=== PATIENT | female | born 1990 | race Caucasian/White ===

== ENCOUNTER 2020-08-15 14:07 | Outpatient (REF) | payer BC, SELFPAY ==
[2020-08-15 14:53] LABS: *AMPHETAMINES SCREEN URINE Negative (Negative); *BARBITURATES SCREEN URINE Negative (Negative); *BENZODIAZEPINES SCREEN URINE Negative (Negative); Cannabinoids THC Negative (Negative); Cocaine Screen,Urine Negative (Negative); METHADONE URINE SCREEN Negative (Negative); OPIATES URINE SCREEN Negative (Negative); Tricyclic Antidepressants Negative (Negative)
[2020-08-22 20:32] LABS: Buprenorphine Negative; Norbuprenorphine Negative
== END 2020-08-15 14:27 ==
LOC: LBN 14:07
PROVIDERS: Visit Provider Advanced Practice Midwife
DX: Z34.90 Encounter for supervision of normal pregnancy, unspecified, unspecified trimester (principal)
CPT/HCPCS: 80307

== ENCOUNTER 2020-08-18 02:12 | Outpatient (CLI) | payer BC, SELFPAY ==
[2020-08-18 09:43] LABS: Glucose 1 Hour 185 mg/dL
[2020-08-18 11:53] LABS: Glucose 3 Hour 56 mg/dL
== END 2020-08-18 02:32 ==
PROVIDERS: PCP Family Medicine; Visit Provider Advanced Practice Midwife
DX: Z34.90 Encounter for supervision of normal pregnancy, unspecified, unspecified trimester (principal)
CPT/HCPCS: 36410; 82951

== ENCOUNTER 2020-09-19 16:23 | Observation (INO) | payer BC, SELFPAY ==
[2020-09-19 16:30] VITALS: BP 133/78; PULSE 89; RESP 16; TEMP 35; O2SAT 96
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
--- NOTE | 2020-09-19 16:48 | PDOC.MHCN ---
Date of service: 09/19/20 Time of Service: 16:48 Mental Health Crisis Note Presenting Issue How did you arrive at the ED and why did you come: Blanca arrived today after she had made other arraignments for her 2 and 1 year old babies at home. She is seeking a voluntary admission. Precipitating Factors Blanca has reported intrusive thoughts of SI to cut her arms or to drive off a rodolfo. She has not acted on these. She does endorse that she is still having them however. Disposition BEHAVIOR: Blanca is cooperative and engaged today as she was yesterday. EYE CONTACT: Eye contact is appropriate and consistent. MOOD: Blanca presents as slightly anxious and still endorses depression. AFFECT: Blanca's affect is appropriate to situation. APPETITE: Blanca reported still having a poor appetite but is eating as she should. SLEEP(trouble falling/staying asleep: Gregory reported that she did not sleep well last night. Plan Blanca will have all her medical work up completed and faxed to [facility], [facility] and [facility]. She is not interested in at this time. [facility] does not have any availability and refused a referral. I did offer her the CARE Bed however, she feels she would prefer an inpatient stay over the CARE Bed. She will hopefully be going to the birthing unit until placement. This clinician had a discussion with Care Management today about this. They got approval from administrators to do so. [facility] will evaluate daily until placement is secured. Signature Clinician's Name/Title: Ángela Pike MS, [facility] Emergency Services Clinician
[2020-09-19 16:54] LABS: Bilirubin Negative (Negative); Blood Negative (Negative); Clarity Clear (Clear); Glucose Negative (Negative); Ketones Negative (Negative); Leukocyte Esterase Negative (Negative); Nitrite Negative (Negative); Specific Gravity >= 1.030 (1.005-1.025); Urobilinogen 0.2 EU/dL (Up TO 0.2)
[2020-09-19 17:02] LABS: Bacteria Moderate HPF (Negative); C & S Indicated? Yes; Casts Negative LPF (Negative); Crystals Few Amorphous HPF (Negative); Epithelial Cells Few HPF (Negative); Mucus Heavy (Negative); RBC 0-2 HPF (0-2)
[2020-09-19 17:04] LABS: *AMPHETAMINES SCREEN URINE Negative (Negative); *BARBITURATES SCREEN URINE Negative (Negative); *BENZODIAZEPINES SCREEN URINE Negative (Negative); Cannabinoids THC Negative (Negative); Cocaine Screen,Urine Negative (Negative); METHADONE URINE SCREEN Negative (Negative); OPIATES URINE SCREEN Negative (Negative)
[2020-09-19 17:07] LABS: Tricyclic Antidepressants Negative (Negative)
[2020-09-19 17:33] LABS: Abs Immature Grans 0.11 10^3/uL (0.0-0.06); Absolute Basophil Count 0.04 10^3/uL (0.0-0.2); Absolute Eosinophil Count 0.09 10^3/uL (0.0-0.7); Absolute Lymphocyte Count 2.71 10^3/uL (1.2-3.4); Absolute Neutrophil Count 10.59 10^3/uL (1.2-6.7); Basophils % 0.3; Eosinophils % 0.6; HCT 32.9 % (36.0-46.0); HGB 10.9 g/dL (11.2-15.7); Immature Grans % 0.7; Lymphocytes % 18.3; MCHC 33.1 % (32.0-36.0); MCV 90.6 fL (80-95); MPV 10.2 fL (8.0-11.0); Monocytes % 8.5; Neutrophils % 71.6; Nucleated RBC 0 %; Platelet Count 310 10^3/uL (130-400); RBC 3.63 10^6/uL (3.93-5.22); RDW 14.5 % (11.7-14.6); RDW-SD 47.3 fL; WBC 14.79 10^3/uL (4.4-10.8)
[2020-09-19 17:35] LABS: Absolute Monocyte Count 1.26 10^3/uL (0.1-0.8)
[2020-09-19 18:01] LABS: ALT 30 U/L (14-59); AST 14 U/L (15-37); Albumin 2.8 g/dL (3.4-5.0); Alkaline Phosphatase 81 U/L (46-116); Anion Gap 8.3 mmol/L (3-11); BUN 8 mg/dL (7-18); Bilirubin, Total 0.2 mg/dL (0.2-1.0); CO2 23.7 mmol/L (21.0-32.0); CREATININE 0.55 mg/dL (0.55-1.02); Chloride 103 mmol/L (98-107); ETHANOL BLOOD < 3.0 mg/dL (<3); Glucose 77 mg/dL (74-106); Potassium 3.4 mmol/L (3.5-5.1); Sodium 135 mmol/L (136-145); Total Protein 7.2 g/dL (6.4-8.2)
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
[2020-09-19 19:06] VITALS: BP 122/70; PULSE 80; RESP 16; TEMP 37.1; O2SAT 97
[2020-09-19] MEDS: Zolpidem 5 MG TAB PO (19:13)
--- NOTE | 2020-09-19 19:42 | PDOC.CMSAFED ---
- If Service Date Differs Date of service: 09/19/20 Time of Service: 17:20 Care Management Safety Plan Chief Complaint: Blanca is a 30 year old female who is 24 weeks . She presents to the ED for suicidal ideation with a plan of either cutting her arms or driving off of a rodolfo. She, however, has not acted on those thoughts and denies intent to harm herself. Blanca, who has a history of depression, was reportedly started on Sertraline last week and the medication appears to have exacerbated her depressive symptoms. Blanca wishes to be voluntarily hospitalized. Patient was evaluated by Ángela Pike, [facility] crisis screener, and was found to meet criteria for a voluntary psych hospitalization. Referrals have been made to [facility], [facility], and [facility]. VOLUNTARY FOR INPATIENT PSYCHIATRIC STABILIZATION. Patient is appropriate in all interactions since arriving at [facility]; Pt has demonstrated appropriate coping and communication skills, has articulated her needs and concerns and is fully engaged during staff interactions. Safety plan has been established with patient, and care team, to adhere to patient goals, identify restrictions based on behavioral status, address nutrition, and determine allowed personal belongings, tools for hygiene and personal care. Determine level of activity including ambulation, level of supervision, visitors, and determine privileges based on behaviors and level of engagement by pt. SAFETY PLAN: 1. Will remain on suicide precautions. 2. Will remain in room under direct supervision of one-on-one staff at all times provided by [employer]; TIFFANY, ENVIRONMENTAL DIRECTOR scrap yard worker. 3. May have paper cups, plates, finger foods as well as a metal spoon with which to eat meals. [facility] staff will be responsible for removing spoon once patient is done eating. 4. Follow [facility] Management of the Admitted Behavioral Health Patient policy. 5. Patient is allowed to shower with supervision and at nursing discretion. 6. No personal belongings with the exception of her own clothes. 7. Visitors-No visitors at this time. 8. Activities: Television if available, soft tip markers, paper, and other activities at nursing discretion. 9. Allowed to use the bathroom in the room without supervision. 10. Phone: No phone privileges at this time. 11. Due to VOLUNTARY status, if patient wishes to leave [facility], the [facility] nail mill worker must be contacted to re-evaluate patient prior to patient exiting the building. Patient is currently voluntarily at [facility] and seeking inpatient admission when a bed becomes available. [facility] Frontline Program Director Scouting will continue seeking placement. Please contact the Parts Runner Health Care Law Specialist ([phone]) and [facility] Program Director Scouting ([phone]) for any needed changes in the Safety Plan. Safety plan has been provided to interdepartmental care team.
--- NOTE | 2020-09-20 08:33 | PGE_ITS ---
Date of Service Date of service: 09/20/20 Time of Service: 08:34 Assessment and Plan Assessment and plan (1) Major depression: Status: Chronic Qualifiers: Major depression recurrence: recurrent Active/Remission status: currently active Major depression episode severity: severe Psychotic features: without psychotic features Qualified Code(s): F33.2 - Major depressive disorder, recurrent severe without psychotic features (2) Suicidal ideation: Status: Acute (3) : Status: Acute Qualifiers: Weeks of gestation: 26 weeks Qualified Code(s): Z3A.26 - 26 weeks gestation of Subjective Subjective Interval history since last seen: Pt slept during night per RN report. Currently sleeping. Will visit with pt later. Objective Last Vital Signs Temp 98.8 F 09/19/20 19:06 Pulse 80 09/19/20 19:06 Resp 16 09/19/20 19:06 BP 122/70 09/19/20 19:06 Pulse Ox 97 09/19/20 19:06 Laboratory Results - last 24 hr 09/19/20 09/19/20 09/19/20 16:45 16:45 17:24 WBC RBC Hgb Hct MCV MCH MCHC RDW Plt Count MPV Immature Gran % Neutrophils % Lymphocytes % Monocytes % Eosinophils % Basophils % Nucleated RBC % Absolute Neutrophils Absolute Lymphocytes Absolute Monocytes Absolute Eosinophils Absolute Basophils Sodium 135 L Potassium 3.4 L Chloride 103 Carbon Dioxide 23.7 Anion Gap 8.3 BUN 8 Creatinine 0.55 Estimated GFR/1.73 m2 >= 60.00 Glucose 77 Calcium 9.0 Total Bilirubin 0.2 AST 14 L ALT 30 Alkaline Phosphatase 81 Total Protein 7.2 Albumin 2.8 L Urine Color Dark yellow Urine Clarity Clear Urine pH 6.0 Ur Specific [place] >= 1.030 H Urine Protein 30 H Urine Ketones Negative Urine Blood Negative Urine Nitrite Negative Urine Bilirubin Negative Urine Urobilinogen 0.2 Ur Leukocyte Esterase Negative Urine RBC 0-2 Urine WBC 5-10 Ur Epithelial Cells Few Urine Crystals Few amorphous Urine Bacteria Moderate Urine Casts Negative Urine Mucus Heavy Ur Culture Indicated? Yes Urine Glucose Negative Urine Opiates Screen Negative Urine Methadone Screen Negative Ur Barbiturates Screen Negative Ur Tricyclics Screen Negative Ur Amphetamines Screen Negative U Benzodiazepines Scrn Negative Urine Cocaine Screen Negative Ur THC Screen Negative Ethyl Alcohol < 3.0 09/19/20 17:24 WBC 14.79 H RBC 3.63 L Hgb 10.9 L Hct 32.9 L MCV 90.6 MCH 30.0 MCHC 33.1 RDW 14.5 Plt Count 310 MPV 10.2 Immature Gran % 0.7 Neutrophils % 71.6 Lymphocytes % 18.3 Monocytes % 8.5 Eosinophils % 0.6 Basophils % 0.3 Nucleated RBC % 0 Absolute Neutrophils 10.59 H Absolute Lymphocytes 2.71 Absolute Monocytes 1.26 H Absolute Eosinophils 0.09 Absolute Basophils 0.04 Sodium Potassium Chloride Carbon Dioxide Anion Gap BUN Creatinine Estimated GFR/1.73 m2 Glucose Calcium Total Bilirubin AST ALT Alkaline Phosphatase Total Protein Albumin Urine Color Urine Clarity Urine pH Ur Specific [place] Urine Protein Urine Ketones Urine Blood Urine Nitrite Urine Bilirubin Urine Urobilinogen Ur Leukocyte Esterase Urine RBC Urine WBC Ur Epithelial Cells Urine Crystals Urine Bacteria Urine Casts Urine Mucus Ur Culture Indicated? Urine Glucose Urine Opiates Screen Urine Methadone Screen Ur Barbiturates Screen Ur Tricyclics Screen Ur Amphetamines Screen U Benzodiazepines Scrn Urine Cocaine Screen Ur THC Screen Ethyl Alcohol
--- NOTE | 2020-09-20 09:05 | W.INMHPGNOTE ---
Date of service: 09/20/20 Time of Service: 09:05 Mental Health Crisis Note Presenting Issue How did you arrive at the ED and why did you come: Blanca arrived yesterday as agreed on the day before when she was evaluated while at an appointment with [facility]. Precipitating Factors Blanca still endorses SI. She denied HI. Disposition BEHAVIOR: Blanca is tired but engaged. She is really wanting to go as soon as she can. EYE CONTACT: Blanca makes good eye contact. MOOD: Blanca presents depressed and endorses this as well. She does not appear to have much energy today but this could be because she has not slept well and/or has just woke up. AFFECT: Blanca's affect is flat and tired. APPETITE: Blanca reports that she still does not have an appetite but will continue to eat. SLEEP(trouble falling/staying asleep: Blanca reported that despite getting an Ambien she still did not get any sleep. Plan Will continue to be assessed by [facility] until placement is found. Will outreach to [facility], [facility] and [facility] as those were the ones accepting referrals. Signature Clinician's Name/Title: Ángela Dsouza MS, [facility] Emergency Services Clinician
--- NOTE | 2020-09-20 10:57 | PGE_ITS ---
Date of Service Date of service: 09/20/20 Time of Service: 10:58 Assessment and Plan Assessment and plan (1) Major depression: Status: Chronic Assessment and plan: Awaiting placement. Writing in journal. Asking to wear her own clothes. OK with continuing inpt care. Declined repeat Ambien last night after she awoke at 0200. May repeat Ambien dose this evening. Qualifiers: Major depression recurrence: recurrent Active/Remission status: currently active Major depression episode severity: severe Psychotic features: without psychotic features Qualified Code(s): F33.2 - Major depressive disorder, recurrent severe without psychotic features (2) Suicidal ideation: Status: Acute (3) : Status: Acute Qualifiers: Weeks of gestation: 26 weeks Qualified Code(s): Z3A.26 - 26 weeks gestation of Subjective Subjective Interval history since last seen: After receiving Ambien 5mg tablet last night she slept for a few hours but awoke at 0200 and was awake until 0500. Had a visit from [place], from [facility]. Still awaiting placement in inpt psych unit. Exam Const General: no acute distress Nutritional Appearance: overweight Orientation: alert, awake and oriented x3 Resp Effort & Inspection: normal respiratory effort Psych Appearance: grossly normal Mental Status: mental status grossly normal Speech and Movement: speech clear Mood: congruent mood (misses her children, feels that it's better she is in hosp. ), not labile and other Affect: normal affect (makes eye contact. would like to wear own clothes.) Attitude: cooperative Thought Process: normal Thought Content: normal Insight: fair Judgment: judgment good Objective Last Vital Signs Temp 98.8 F 09/19/20 19:06 Pulse 80 09/19/20 19:06 Resp 16 09/19/20 19:06 BP 122/70 09/19/20 19:06 Pulse Ox 97 09/19/20 19:06 Laboratory Results - last 24 hr 09/19/20 09/19/20 09/19/20 16:45 16:45 17:24 WBC RBC Hgb Hct MCV MCH MCHC RDW Plt Count MPV Immature Gran % Neutrophils % Lymphocytes % Monocytes % Eosinophils % Basophils % Nucleated RBC % Absolute Neutrophils Absolute Lymphocytes Absolute Monocytes Absolute Eosinophils Absolute Basophils Sodium 135 L Potassium 3.4 L Chloride 103 Carbon Dioxide 23.7 Anion Gap 8.3 BUN 8 Creatinine 0.55 Estimated GFR/1.73 m2 >= 60.00 Glucose 77 Calcium 9.0 Total Bilirubin 0.2 AST 14 L ALT 30 Alkaline Phosphatase 81 Total Protein 7.2 Albumin 2.8 L Urine Color Dark yellow Urine Clarity Clear Urine pH 6.0 Ur Specific [place] >= 1.030 H Urine Protein 30 H Urine Ketones Negative Urine Blood Negative Urine Nitrite Negative Urine Bilirubin Negative Urine Urobilinogen 0.2 Ur Leukocyte Esterase Negative Urine RBC 0-2 Urine WBC 5-10 Ur Epithelial Cells Few Urine Crystals Few amorphous Urine Bacteria Moderate Urine Casts Negative Urine Mucus Heavy Ur Culture Indicated? Yes Urine Glucose Negative Urine Opiates Screen Negative Urine Methadone Screen Negative Ur Barbiturates Screen Negative Ur Tricyclics Screen Negative Ur Amphetamines Screen Negative U Benzodiazepines Scrn Negative Urine Cocaine Screen Negative Ur THC Screen Negative Ethyl Alcohol < 3.0 09/19/20 17:24 WBC 14.79 H RBC 3.63 L Hgb 10.9 L Hct 32.9 L MCV 90.6 MCH 30.0 MCHC 33.1 RDW 14.5 Plt Count 310 MPV 10.2 Immature Gran % 0.7 Neutrophils % 71.6 Lymphocytes % 18.3 Monocytes % 8.5 Eosinophils % 0.6 Basophils % 0.3 Nucleated RBC % 0 Absolute Neutrophils 10.59 H Absolute Lymphocytes 2.71 Absolute Monocytes 1.26 H Absolute Eosinophils 0.09 Absolute Basophils 0.04 Sodium Potassium Chloride Carbon Dioxide Anion Gap BUN Creatinine Estimated GFR/1.73 m2 Glucose Calcium Total Bilirubin AST ALT Alkaline Phosphatase Total Protein Albumin Urine Color Urine Clarity Urine pH Ur Specific [place] Urine Protein Urine Ketones Urine Blood Urine Nitrite Urine Bilirubin Urine Urobilinogen Ur Leukocyte Esterase Urine RBC Urine WBC Ur Epithelial Cells Urine Crystals Urine Bacteria Urine Casts Urine Mucus Ur Culture Indicated? Urine Glucose Urine Opiates Screen Urine Methadone Screen Ur Barbiturates Screen Ur Tricyclics Screen Ur Amphetamines Screen U Benzodiazepines Scrn Urine Cocaine Screen Ur THC Screen Ethyl Alcohol
[2020-09-20] MEDS: Prenatal Multivitamin w/CA,FE TAB 1 TAB PO (11:00)
[2020-09-20 15:02] VITALS: BP 112/71; PULSE 92; RESP 20; TEMP 36.8; O2SAT 98
--- NOTE | 2020-09-20 18:54 | CMPROGNOTE_ITS ---
- If Service Date Differs Date of service: 09/20/20 Time of Service: 18:54 Care Management Progress Note S/O: Blanca remains at [facility], awaiting a voluntary psychiatric bed placement. She is in good spirits when CM comes to meet with her. She shares she misses her children and is looking forward to a transfer to a hospital where she can begin treatment for her depression and SI. Blanca has been cooperative and appropriate in her interactions with staff and is occupying her time by jhonny ramirez. provides her an adult coloring book and soft tip markers and ensures she has access to the television in the room to provide her with a variety of activities while she awaits placement. CM will continue to follow. A: Blanca is a 30 year old female admitted to [facility] on 09/19/20 for suicidal ideation. P: Blanca will remain at [facility] on voluntary status while [facility] continues to seek placement for her. Referrals were made to [facility], [facility] and [facility]. There are no available beds today. CM will continue to support patient while she awaits placement.
[2020-09-21] MEDS: Prenatal Multivitamin w/CA,FE TAB 1 TAB PO (09:15)
--- NOTE | 2020-09-21 10:16 | W.INMHPGNOTE ---
Date of service: 09/21/20 Time of Service: 10:16 Mental Health Crisis Note Presenting Issue How did you arrive at the ED and why did you come: Blanca arrived to the ER Friday as agreed upon the day before at her appointment at [facility]. She was and still is seeking a voluntary admission. Precipitating Factors Blanca still endorses intrusive SI thoughts. There are no signs of delusions. She denied HI. Disposition BEHAVIOR: Blanca is soft spoken. She is sitting in her bed on the birthing unit. She said that she is tired and is eating her breakfast. EYE CONTACT: Eye contact is good and consistent. MOOD: Blanca is peasant however still appears depressed. AFFECT: Blanca's affect is sad but pleasant. APPETITE: Blanca is eating breakfast. She still endorses not having an appetite but eats because she knows she needs to. SLEEP(trouble falling/staying asleep: Blanca reports that she is not sleeping well. She reported the bed is not comfortable. Plan Blanca is still seeking a voluntary placement. She will continue to be assessed daily until she is placed. Called [facility] to see if they could take Blanca and retest her COVID and then accept. Unfortunately, they report they are unable to accept until the negative COVID test is back. Signature Clinician's Name/Title: Ángela Pike MS, [facility] Emergency Services Clinician
--- NOTE | 2020-09-21 11:37 | CMPROGNOTE_ITS ---
- If Service Date Differs Date of service: 09/21/20 Time of Service: 11:37 Care Management Progress Note S/O: Blanca remains in good spirits. She easily engages in conversation and shares how much she misses her two children (2 year old daughter and 1 year old son) who are currently with their father. She continues to experience depression and is looking forward to beginning treatment at an inpatient facility. Blanca was reevaluated by Ángela [facility] crisis screener, today and was found to remain appropriate for a voluntary psych placement. CM will continue to follow. A: Blanca is a 30 year old female who remains at [facility] awaiting a voluntary psych placement. P: Anticipate Blanca will be transferred to [facility] pending Covid-19 test results. Transport will be via [facility] when ready. CM will continue to follow.
--- NOTE | 2020-09-21 11:47 | PDOC.CMSAFE ---
- If Service Date Differs Date of service: 09/21/20 Time of Service: 11:47 Care Management Safety Plan VOLUNTARY FOR INPATIENT PSYCHIATRIC STABILIZATION. Patient is appropriate in all interactions since arriving at [facility]; Pt has demonstrated appropriate coping and communication skills, has articulated her needs and concerns and is fully engaged during staff interactions. Safety plan has been established with patient, and care team, to adhere to patient goals, identify restrictions based on behavioral status, address nutrition, and determine allowed personal belongings, tools for hygiene and personal care. Determine level of activity including ambulation, level of supervision, visitors, and determine privileges based on behaviors and level of engagement by pt. SAFETY PLAN: 1. Will remain on suicide precautions. 2. Will remain in room under direct supervision of one-on-one staff at all times provided by [employer]; TIFFANY, MIRZA recorder of deeds. 3. May have paper cups, plates, finger foods as well as a metal spoon with which to eat meals. [facility] staff will be responsible for removing spoon once patient is done eating. 4. Follow [facility] Management of the Admitted Behavioral Health Patient policy. 5. Patient is allowed to shower without supervision at nursing discretion. 6. No personal belongings with the exception of her own clothes. 7. Visitors-No visitors at this time. 8. Activities: Television if available, soft tip markers, paper, and other activities at nursing discretion. 9. Allowed to use the bathroom in the room without supervision. 10. Phone: Allowed outgoing phone calls to her children. 11. Due to VOLUNTARY status, if patient wishes to leave [facility], the [facility] sheet metal worker helper must be contacted to re-evaluate patient prior to patient exiting the building. Patient is currently voluntarily at [facility] and seeking inpatient admission when a bed becomes available. [facility] Frontline Disc Pad Plate Filler will continue seeking placement. Please contact the Location Manager Heel Room Supervisor ([phone]) and [facility] Disc Pad Plate Filler ([phone]) for any needed changes in the Safety Plan. Safety plan has been provided to interdepartmental care team.
[2020-09-21 16:00] VITALS: BP 100/67; PULSE 92; RESP 20; TEMP 35.8
--- NOTE | 2020-09-21 21:32 | PGE_ITS ---
Date of Service Date of service: 09/21/20 Time of Service: 21:32 Assessment and Plan Assessment and plan (1) Major depression: Status: Chronic Assessment and plan: Awaiting placement. Writing in journal. Asking to wear her own clothes. OK with continuing inpt care. Declined repeat Ambien last night after she awoke at 0200. May repeat Ambien dose this evening. Qualifiers: Major depression recurrence: recurrent Active/Remission status: currently active Major depression episode severity: severe Psychotic features: without psychotic features Qualified Code(s): F33.2 - Major depressive disorder, recurrent severe without psychotic features (2) Suicidal ideation: Status: Acute Assessment and plan: Decision to initiate any type of medication therapy at this time. Patient had Covid testing at the time of admission to [facility]. However there are currently issues with obtaining the final result from [facility]. Care management has looked into possibly obtaining another test and having it sent somewhere else so the results could become available in a timely manner. We will continue to follow. (3) : Status: Acute Assessment and plan: Stable Qualifiers: Weeks of gestation: 26 weeks Qualified Code(s): Z3A.26 - 26 weeks gestation of Subjective Subjective Interval history since last seen: Patient meets to missing her children. While she has little activity she denies being bored. She has been writing in her journal. She is aware of the issues with obtaining Covid test results at this time. Exam Const General: no acute distress Nutritional Appearance: overweight Orientation: alert, awake and oriented x3 General: deferred Psych Appearance: grossly normal Mental Status: mental status grossly normal Speech and Movement: speech clear Mood: congruent mood (misses her children, feels that it's better she is in hosp. ), not labile and other Affect: normal affect (makes eye contact. would like to wear own clothes.) Attitude: cooperative Thought Process: normal Thought Content: normal Insight: fair Judgment: judgment good Objective Last Vital Signs Temp 96.4 F L 09/21/20 16:00 Pulse 92 H 09/21/20 16:00 Resp 20 09/21/20 16:00 BP 100/67 09/21/20 16:00 Pulse Ox 98 09/20/20 15:02
[2020-09-21] MEDS: Zolpidem 5 MG TAB PO (22:19)
[2020-09-22] MEDS: Prenatal Multivitamin w/CA,FE TAB 1 TAB PO (09:32)
--- NOTE | 2020-09-22 11:57 | MHPN_ITS ---
Date of service: 09/22/20 Time of Service: 11:57 Mental Health Crisis Note Presenting Issue How did you arrive at the ED and why did you come: Blanca came to ER Friday after she was screened on Friday. SHe came to seek a voluntary placement. Precipitating Factors Blanca reported that she is still having SI and denied HI. There are no signs of delusions. Disposition BEHAVIOR: Blanca is cooperative and friendly. She is smiling and very sweet. She is eager to get out of [facility] and get to the treatment she needs. EYE CONTACT: Eye contact is good and normal. MOOD: Blanca appears normal but slightly anxious today. She endorses depression. AFFECT: Affect is normal and and friendly. APPETITE: Appetite is still not good but shes does continue to eat. SLEEP(trouble falling/staying asleep: She reported 5 hours of sleep last night after getting an Ativan. This was good for her considering what she has been getting. She still does not feel it was enough. Plan Will continue to seek placement at [facility], [facility], [facility] and [facility] if available. Faxed COVID results to [facility], and [facility]. Signature Clinician's Name/Title: Ángela Pike MS, [facility] EMERGENCY SERVICES CLINICIAN
[2020-09-22 15:38] VITALS: BP 114/72; PULSE 84; RESP 16; TEMP 37; O2SAT 97
--- NOTE | 2020-09-22 16:13 | PDOC.CMDIS ---
- If Service Date Differs Date of service: 09/22/20 Time of Service: 16:13 LACE Index Scoring Tool - Questions: Length of Stay (in days): 3 Acuity (Admit via E.D.?): Yes E.D. Visits: 1 - Answers: Total Score: 7 Risk of Readmission: Low Risk Care Management Discharge Reason for Hospitalization: Major depression. Discharge Plan: Blanca is looking forward to beginning treatment for her depression. She is accepted for admission by [facility]. Transport will be provided by [facility] per [facility] policy. Blanca will follow up with her discharge plan of care as directed. Patient/Family Education Needs: Discharge instructions and expectations for inpatient psychiatric treatment. Services Needed at Discharge: Psychiatric Facility ([facility]), Transportation ([facility]
[2020-09-22 16:25] LABS: COVID-19 RT-PCR UVMMC Result Negative (Negative)
--- NOTE | 2020-09-22 17:01 | NUR.NOTE ---
Nursing Note: Dr. Triplett in to see patient. Consent for transfer to [facility] signed by patient. Pt instructed to contact [facility] for a follow up appointment after discharge from [facility]. Pt remains calm and cooperative. No concerns at th9is time.
== END 2020-09-22 17:20 | disposition short-term general hospital (02) ==
LOC: ER 18:21 → OBS 18:31
PROVIDERS: Admitting Provider Obstetrics & Gynecology Gynecology; Emergency Provider Physician Assistant; PCP Family Medicine; Visit Provider Obstetrics & Gynecology Gynecology
DX: F33.2 Major depressive disorder, recurrent severe without psychotic features (principal); R45.851 Suicidal ideations; Z11.59 Encounter for screening for other viral diseases; O99.342 Other mental disorders complicating pregnancy, second trimester
CPT/HCPCS: 80053; 80307; 99221; 99285; NC; U0003; 80320; 81003; 81015; 85025; 87086; G0378

== ENCOUNTER 2020-10-17 03:01 | Outpatient (CLI) | payer BC, SELFPAY ==
[2020-10-17 11:13] LABS: Abs Immature Grans 0.12 10^3/uL (0.0-0.06); Absolute Eosinophil Count 0.09 10^3/uL (0.0-0.7); Absolute Lymphocyte Count 1.96 10^3/uL (1.2-3.4); Absolute Neutrophil Count 9.55 10^3/uL (1.2-6.7); Basophils % 0.2; Eosinophils % 0.7; HCT 33.6 % (36.0-46.0); Lymphocytes % 15.5; MCH 30.6 pg (27.0-33.0); MCHC 32.7 % (32.0-36.0); MCV 93.6 fL (80-95); MPV 10.1 fL (8.0-11.0); Neutrophils % 75.6; Nucleated RBC 0 %; Platelet Count 301 10^3/uL (130-400); RBC 3.59 10^6/uL (3.93-5.22); RDW 14.8 % (11.7-14.6); RDW-SD 51.1 fL; WBC 12.63 10^3/uL (4.4-10.8)
[2020-10-17 11:17] LABS: Absolute Basophil Count 0.03 10^3/uL (0.0-0.2); Absolute Monocyte Count 0.88 10^3/uL (0.1-0.8)
[2020-10-17 11:23] LABS: Glucose,1 Hr (Glucola) 160 mg/dL (80-140)
== END 2020-10-17 03:21 ==
PROVIDERS: PCP Family Medicine; Visit Provider Obstetrics & Gynecology
DX: O99.343 Other mental disorders complicating pregnancy, third trimester (principal); F32.9 Major depressive disorder, single episode, unspecified; Z3A.28 28 weeks gestation of pregnancy; Z86.59 Personal history of other mental and behavioral disorders
CPT/HCPCS: 82950; 85025

== ENCOUNTER 2020-10-25 03:34 | Outpatient (CLI) | payer BC, SELFPAY ==
[2020-10-25 08:50] LABS: Glucose 1 Hour 219 mg/dL
[2020-10-25 10:46] LABS: Glucose 3 Hour 102 mg/dL
== END 2020-10-25 03:54 ==
PROVIDERS: PCP Family Medicine; Visit Provider Obstetrics & Gynecology
DX: O99.810 Abnormal glucose complicating pregnancy (principal)
CPT/HCPCS: 36415; 82951

== ENCOUNTER 2020-10-27 03:43 | Outpatient (CLI) | payer BC, SELFPAY ==
--- NOTE | 2020-10-27 06:30 | DI.US_ITS ---
EXAM: US OB ELIZABETH WEIGHT CLINICAL HISTORY: Size greater than dates,Z3A.26. TECHNIQUE: Transabdominal obstetrical ultrasound performed. COMPARISON: No exams were available for comparison FINDINGS:: Number of fetuses: One. position: Coleman breech Placental location: Posterior. No evidence of previa. BIOMETRIC DATA: BPD: 74mm = 29+ 4 weeks HC: 281mm = 30+ 5 weeks AC: 268mm = 30+ 6 weeks FL: 62 mm = 32+ 0 weeks EFW: 1705 Gms = 72% Composite Age: 30+ 6 weeks EDC: 30 December 2020 Heart Rate: 150 BPM Amniotic fluid index: 14.6 cm. Amount of fluid is within normal limits. IMPRESSION: size and weight are within the expected range. DATA REPOSITORY:
== END 2020-10-27 04:03 ==
PROVIDERS: PCP Family Medicine; Visit Provider Obstetrics & Gynecology
DX: Z3A.26 26 weeks gestation of pregnancy (principal); Z34.92 Encounter for supervision of normal pregnancy, unspecified, second trimester
CPT/HCPCS: 76816

== ENCOUNTER 2020-11-23 12:06 | Outpatient (CLI) | payer BC, SELFPAY ==
[2020-11-23 12:20] LABS: Abs Immature Grans 0.08 10^3/uL (0.0-0.06); Absolute Basophil Count 0.02 10^3/uL (0.0-0.2); Absolute Monocyte Count 0.94 10^3/uL (0.1-0.8); Basophils % 0.2; Eosinophils % 0.8; HCT 33.5 % (36.0-46.0); HGB 10.9 g/dL (11.2-15.7); Immature Grans % 0.7; Lymphocytes % 21.3; MCH 31.3 pg (27.0-33.0); MCHC 32.5 % (32.0-36.0); MCV 96.3 fL (80-95); Monocytes % 7.8; Neutrophils % 69.2; Nucleated RBC 0 %; Platelet Count 264 10^3/uL (130-400); RBC 3.48 10^6/uL (3.93-5.22); RDW 14.9 % (11.7-14.6); RDW-SD 51.4 fL; WBC 12.09 10^3/uL (4.4-10.8)
[2020-11-23 12:21] LABS: Absolute Lymphocyte Count 2.58 10^3/uL (1.2-3.4); Absolute Neutrophil Count 8.37 10^3/uL (1.2-6.7)
[2020-11-23 12:33] LABS: ALT 14 U/L (14-59); AST 9 U/L (15-37); Albumin 2.5 g/dL (3.4-5.0); Alkaline Phosphatase 88 U/L (46-116); Anion Gap 12.7 mmol/L (3-11); BUN 7 mg/dL (7-18); Bilirubin, Total 0.2 mg/dL (0.2-1.0); CO2 21.3 mmol/L (21.0-32.0); CREATININE 0.74 mg/dL (0.55-1.02); Calcium 8.6 mg/dL (8.5-10.1); Chloride 102 mmol/L (98-107); Glucose 135 mg/dL (74-106); Potassium 3.3 mmol/L (3.5-5.1); Sodium 136 mmol/L (136-145); Total Protein 6.7 g/dL (6.4-8.2)
[2020-11-23 12:39] LABS: Bilirubin, Direct < 0.05 mg/dL (0.00-0.20)
== END 2020-11-23 12:26 ==
PROVIDERS: PCP Family Medicine; Visit Provider Obstetrics & Gynecology
DX: R10.13 Epigastric pain (principal); Z3A.26 26 weeks gestation of pregnancy
CPT/HCPCS: 36415; 80053; 80076; 85025

== ENCOUNTER 2020-12-12 00:55 | Outpatient (CLI) | payer BC, SELFPAY ==
--- NOTE | 2020-12-12 08:30 | DI.US_ITS ---
EXAM: US OB ELIZABETH WEIGHT CLINICAL HISTORY: Position, weight, ELIZABETH,Z3A.26,O32.1XX0. TECHNIQUE: Transabdominal obstetrical ultrasound performed. COMPARISON: US US OB ELIZABETH WEIGHT from 10/27/2020 FINDINGS: Transabdominal obstetrical ultrasound performed. FINDINGS: Number of fetuses: One. position: Cephalic. Placental location: Posterior. No evidence of previa. BIOMETRIC DATA: EFW: 3012 grms 55% Composite Age: 36 weeks 5 days EDC: 01/04/2021 Heart Rate: 139BPM Amniotic fluid index: 20.8 cm. Visually, amount of fluid is within normal limits. IMPRESSION: 1. Single live intrauterine gestation as above. 2. Estimated weight is 3012gms. 3. Amniotic fluid index is 20.8 cm. Visually within normal limits. DATA REPOSITORY:
== END 2020-12-12 01:15 ==
PROVIDERS: PCP Family Medicine; Visit Provider Obstetrics & Gynecology
DX: Z34.93 Encounter for supervision of normal pregnancy, unspecified, third trimester (principal); Z3A.36 36 weeks gestation of pregnancy
CPT/HCPCS: 76816

== ENCOUNTER 2020-12-12 21:51 | Outpatient (REF) | payer BC, SELFPAY ==
[2020-12-12 17:00] LABS: *AMPHETAMINES SCREEN URINE Negative (Negative); *BARBITURATES SCREEN URINE Negative (Negative); *BENZODIAZEPINES SCREEN URINE Negative (Negative); Cannabinoids THC Negative (Negative); Cocaine Screen,Urine Negative (Negative); METHADONE URINE SCREEN Negative (Negative); OPIATES URINE SCREEN Negative (Negative)
[2020-12-12 17:21] LABS: Tricyclic Antidepressants Negative (Negative)
[2020-12-16 15:13] LABS: Buprenorphine Negative; Norbuprenorphine Negative
== END 2020-12-12 22:11 ==
LOC: LBN 21:51
PROVIDERS: PCP Family Medicine; Visit Provider Obstetrics & Gynecology Gynecology
DX: Z34.92 Encounter for supervision of normal pregnancy, unspecified, second trimester (principal); Z3A.26 26 weeks gestation of pregnancy
CPT/HCPCS: 80307; 87081

== ENCOUNTER 2020-12-25 10:34 | Outpatient (CLI) | payer BC, SELFPAY ==
[2020-12-26 12:37] LABS: COVID-19 RT-PCR UVMMC Result Negative (Negative)
== END 2020-12-25 10:54 ==
PROVIDERS: PCP Family Medicine; Visit Provider Obstetrics & Gynecology
DX: Z11.52 Encounter for screening for COVID-19 (principal); Z01.818 Encounter for other preprocedural examination
CPT/HCPCS: U0003

== ENCOUNTER 2020-12-25 10:46 | Outpatient (CLI) | payer BC, SELFPAY ==
[2020-12-25 11:20] LABS: Abs Immature Grans 0.06 10^3/uL (0.0-0.06); Absolute Basophil Count 0.02 10^3/uL (0.0-0.2); Absolute Eosinophil Count 0.07 10^3/uL (0.0-0.7); Absolute Lymphocyte Count 2.02 10^3/uL (1.2-3.4); Absolute Monocyte Count 0.86 10^3/uL (0.1-0.8); Absolute Neutrophil Count 7.47 10^3/uL (1.2-6.7); Basophils % 0.2; Eosinophils % 0.7; HCT 32.4 % (36.0-46.0); HGB 10.7 g/dL (11.2-15.7); Immature Grans % 0.6; Lymphocytes % 19.2; MCH 30.4 pg (27.0-33.0); MPV 10.7 fL (8.0-11.0); Monocytes % 8.2; Neutrophils % 71.1; Nucleated RBC 0 %; Platelet Count 242 10^3/uL (130-400); RBC 3.52 10^6/uL (3.93-5.22); RDW 14.2 % (11.7-14.6); RDW-SD 47.1 fL
== END 2020-12-25 11:06 ==
PROVIDERS: PCP Family Medicine; Visit Provider Obstetrics & Gynecology
DX: Z01.818 Encounter for other preprocedural examination (principal); Z11.52 Encounter for screening for COVID-19
CPT/HCPCS: 36415; 86850; 86900; 86901; 85025

== ENCOUNTER 2020-12-28 06:05 | Inpatient (IN) | payer BC, SELFPAY ==
--- NOTE | 2020-12-26 13:14 | NUR.NOTE ---
Pt. Informed of arrival time to Center for 0600 on 12/28/20. Pt. instructed to be NPO after midnight water until 0300am, may take Fluoxetine with a sip of water is ok. Pt. ok'd to have support person, pt. Mother Carol Trevizo with her on DOS. Pt reminided to bring in yellow slip of paper from [facility]. Pt. stated understanding. Center: James Pineda RN and Myra Blue RN informed of plans. Lab informed to bring pt redband to center.Nursing Note:
[2020-12-28] VITALS (13 sets, daily range): BP systolic 108–137; BP diastolic 60–75; PULSE 70–97; RESP 16–18; TEMP 36.5–37; O2SAT 96–100
--- NOTE | 2020-12-28 06:39 | W.PM.PROGNOT ---
Date of Service Date of service: 12/28/20 Time of Service: 06:39 Subjective Subjective Patient reports: no new complaints Interval history since last seen: Patient seen. Category 1 strip. No changes in H&P today. Will proceed with repeat section Objective Last Vital Signs Pulse 88 12/28/20 06:30 BP 137/73 12/28/20 06:30
[2020-12-28] MEDS: ceFAZolin 2 GM/50 ML BAG IVPB (07:11)
[2020-12-28] MEDS: Sodium Citrate 30 ML CUP PO (07:11)
[2020-12-28] MEDS: Normal Saline Flush 10 ML SYR IVP ×3 (07:14→20:50)
[2020-12-28] MEDS: Lactated Ringers 1,000 ML 125 ML IV ×2 (07:17→10:07)
[2020-12-28] MEDS: AZITHROMYCIN 500 MG in Normal Saline 250 ML 250 MG IVPB (07:53)
[2020-12-28] MEDS: Scopolamine 1 MG/3 DAYS PATCH TD (08:40)
--- NOTE | 2020-12-28 08:56 | PDOC.OPNB_ITS ---
Date of service: 12/28/20 Time of Service: 08:56 Operative Note Operative Note Delivery Method: Scheduled DATE OF PROCEDURE: 12/28/20 PRE-OP DIAGNOSES: Prior section x2 POST-OP DIAGNOSES: same PROCEDURE: Repeat low transverse section SURGEON: Fabi Porter Assisting Surgeon: Ninfa Goel Anesthesia: spinal Estimated blood loss (mL): 500 Pathology: none sent Complications: None Patient was transported to: floor Patient's condition: stable Indications: Prior x2, term at 39 weeks Findings: Normal tubes and ovaries. 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 She had care with women's wellness. She declined a trial of labor. Risk benefits and alternatives section including infection bleeding injury to surrounding organs and risk of anesthesia along with risk of thromboembolism risk of were all explained patient full informed consent was obtained. She was taken the operating suite with an IV running placed in the seated position and spinal anesthesia administered, tested and found to be adequate. She was then placed in the dorsal supine position with leftward tilt and prepped and draped in usual sterile fashion with a Black catheter for continuous bladder drainage. A Pfannenstiel skin incision was made through her previous Pfannenstiel skin incision scar. This was carried down to the underlying fascia which was nicked in the midline extended laterally. The rectus muscles were identified split in the midline and meticulously dissected. There is noted to be adhesions of the omentum to the anterior abdominal wall which were meticulously dissected away as were the bladder peritoneum dissected away from the anterior wall of the abdomen. At this point bladder blade was inserted and the vesicouterine peritoneum identified tented up and entered sharply and the bladder flap created. Bladder blade was reinserted and a low transverse uterine incision was made and extended bluntly laterally. The vertex was delivered atraumatically followed by the shoulders there is no evidence of nuchal cord. Three-vessel cord was noted clamped x2 and cut and the infant was handed off to the waiting pediatric team. At this point cord blood gases cord blood sample were both obtained and the placenta was manually expressed from the uterus. The uterus was then cleared of all clot and debris. Inspection there was noted to be a bicornuate uterus with a relatively wide septum and had been in the left horn of her uterus. At this point uterine incision was closed using 0 Monocryl suture in a running locked fashion with a second imbricating layer over the top. At this point the uterus was returned to the abdomen abdomen irrigated with copious amounts of normal saline and uterine incision inspected and found to be hemostatic. At this point fascial incision was closed using 0 Vicryl suture ru nning fashion. Subcutaneous tissue was irrigated with copious amounts of normal saline and infiltrated with Exparel. Subcutaneous tissue reapproximated with 3- 0 Vicryl suture. Sent cleaning space was hemostatic. Subcuticular space was closed. Suture of 4-0 undyed Monocryl was used to reapproximate the skin edge and Steri-Strips were placed. Sterile dressing was placed and the patient was then returned to center for recovery. Black catheter was placed draining clear yellow urine. Findings are delivered viable female infant with Apgars 6 8, bicornuate uterus. Normal tubes and ovaries. EBL: 500 mL Complications: None apparent Fluids: Crystalloid per anesthesia, 700 cc.
[2020-12-28] MEDS: FLUoxetine 20 MG CAP 40 MG PO (09:55)
[2020-12-28] MEDS: Oxytocin/Normal Saline 30 UNIT/500 ML BAG 95 UNITS IV (10:06)
[2020-12-28] MEDS: Metoclopramide 10 MG/2 ML VIAL IVP (11:12)
[2020-12-28] MEDS: Lactated Ringers 1,000 ML 120 ML IV (11:49)
[2020-12-28] MEDS: Ketorolac 30 MG/ML VIAL IVP ×2 (15:24→20:50)
[2020-12-29] VITALS: BP 116/64; PULSE 72; RESP 18; TEMP 36.8
[2020-12-29 05:00] VITALS: BP 117/63; PULSE 72; RESP 18; TEMP 36.6
[2020-12-29] MEDS: Ibuprofen 600 MG TAB PO ×2 (07:03→19:45)
--- NOTE | 2020-12-29 08:46 | W.PM.OBPNV1 ---
Date of service: 12/29/20 Time of Service: 08:46 Assessment and Plan Assessment and plan (1) Status post repeat low transverse section: Status: Acute Assessment and plan: Postoperative day #1 status post repeat low transverse section. Doing well. Ambulating, tolerating oral pain medication. Breast-feeding without difficulty. We discussed again contraception . In light of her bicornuate uterus, she is not a candidate for an intrauterine device, however Nexplanon post in the office may be a good option for her. She will continue her normal post operative care and expect discharge in the next 24 to 48 hours. (2) Major depression: Status: Chronic Qualifiers: Major depression recurrence: recurrent Active/Remission status: currently active Major depression episode severity: severe Psychotic features: without psychotic features Qualified Code(s): F33.2 - Major depressive disorder, recurrent severe without psychotic features Subjective Subjective Interval history: Patient seen and examined postoperative day #1 today. Doing well. Minimal pain. Minimal bleeding. Black catheter is out. Patient is ambulating and eating well. Nursing without difficulty. Patient comments: No complaints baby status: Doing well and Nursing well Exam Physical Exam Vital signs: Temp Pulse Resp BP Pulse Ox 98 F 72 18 117/63 96 12/29/20 05:00 12/29/20 05:00 12/29/20 05:00 12/29/20 05:00 12/28/20 15:40 Constitutional Constitutional: no acute distress HEENT Exam HEENT Exam: Normal Respiratory Exam Respiratory Exam: Normal Cardiovascular Exam Cardiovascular Exam: Normal Extremities Exam Extremity Exam: Normal; negative Calf Tenderness and Edema Skin Exam Skin Exam: Normal DetailedPsychiatric Exam Psych Exam: Normal Affect, Normal Thougth Process, Cooperative, Good Insight and Good Judgement
[2020-12-29 08:50] VITALS: BP 116/75; PULSE 76; RESP 16; TEMP 36.9; O2SAT 97
[2020-12-29] MEDS: FLUoxetine 20 MG CAP 40 MG PO (09:03)
[2020-12-29] MEDS: oxyCODONE 5 mg/Acetaminophen 325 mg TAB PO ×4 (09:04→23:30)
[2020-12-29 12:00] VITALS: BP 114/72; PULSE 83; RESP 16; TEMP 37; O2SAT 96
[2020-12-29 16:45] VITALS: BP 94/63; PULSE 94; RESP 16; TEMP 36.8; O2SAT 96
[2020-12-29 19:40] VITALS: BP 122/78; PULSE 103; RESP 18; TEMP 36.7; O2SAT 98
[2020-12-29] MEDS: Docusate Sodium 100 MG CAP PO (23:30)
[2020-12-30] MEDS: Ibuprofen 600 MG TAB PO ×4 (01:29→20:31)
[2020-12-30] MEDS: oxyCODONE 5 mg/Acetaminophen 325 mg TAB PO ×2 (03:59→08:17)
[2020-12-30] MEDS: Docusate Sodium 100 MG CAP PO (08:16)
[2020-12-30] MEDS: FLUoxetine 20 MG CAP 40 MG PO (08:19)
[2020-12-30 08:28] VITALS: BP 103/64; PULSE 87; RESP 17; TEMP 36.6; O2SAT 99
[2020-12-30 12:20] VITALS: BP 109/72; PULSE 85; RESP 16; TEMP 36.8; O2SAT 98
[2020-12-30] MEDS: oxyCODONE 5 MG TAB 10 MG PO ×3 (12:20→20:29)
[2020-12-30 16:35] VITALS: BP 112/70; PULSE 82; RESP 16; TEMP 36.8; O2SAT 98
[2020-12-30 20:00] VITALS: BP 122/80; PULSE 95; RESP 98; TEMP 37
[2020-12-31] VITALS: BP 119/67; PULSE 84; RESP 19; TEMP 36.8; O2SAT 97
[2020-12-31] MEDS: oxyCODONE 5 MG TAB 10 MG PO ×4 (00:29→12:45)
[2020-12-31] MEDS: Ibuprofen 600 MG TAB PO ×3 (02:17→15:03)
[2020-12-31 04:50] VITALS: BP 105/66; PULSE 85; RESP 18; O2SAT 98
[2020-12-31] MEDS: FLUoxetine 20 MG CAP 40 MG PO (08:32)
[2020-12-31] MEDS: Docusate Sodium 100 MG CAP PO (08:33)
[2020-12-31 08:45] VITALS: BP 119/82; PULSE 89; RESP 17; TEMP 36.8; O2SAT 98
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
--- NOTE | 2020-12-31 11:53 | W.PM.OBPNV1 ---
Date of service: 12/30/20 Time of Service: 10:54 Assessment and Plan Assessment and plan (1) Status post repeat low transverse section: Status: Acute Assessment and plan: Pt recovering well. Plan discharge to home in am. successfully. (2) History of depression: Status: Acute Assessment and plan: Sx stable. Pt will be seen week of 01/08/21 for postop check and mood assessment. (3) Postoperative pain: Status: Acute Assessment and plan: Will change from Percocet 5/325mg to Oxycodone 10mg q4 hrs. She will continue (4) Contraception: Status: Acute Assessment and plan: Pt has decided against permanent sterilization. Instead she will have PP Mirena/Kyleena IUD. Qualifiers: Contraceptive encounter type: other general counseling and advice Qualified Code(s): Z30.09 - Encounter for other general counseling and advice on contraception Subjective Subjective Interval history: POD2 Repeat delivery of female infant who will be named Iman. Pt's pain medication requirement is ~10mg of oxycodone every 4 to 5 hours. I will discontinue the Percocet 5/325mg and instead prescribe Oxycodone tablet 10mg every fours hours. She has been taking Ibuprofen 600mg every six hours. Her pain is reported as 4-5 when medication is effective and 8-9 when the 4 hour interval is ending. Patient comments: Incisional pain, Tolerating diet and Flatus present [place] baby status: Doing well, Nursing well, Rooming in and Strong Bonding Observed [place] feeding status: Exclusively breast feeding Exam Physical Exam Vital signs: Temp Pulse Resp BP Pulse Ox 98.2 F 89 17 119/82 98 12/31/20 08:45 12/31/20 08:45 12/31/20 08:45 12/31/20 08:45 12/31/20 08:45 Constitutional Constitutional: no acute distress HEENT Exam HEENT Exam: Not Done Neck Exam Neck Exam: Normal Respiratory Exam Respiratory Exam: Normal Cardiovascular Exam Cardiovascular Exam: Normal Abdominal Exam Abdomen: Tender (along L lateral margin of her incsion. describes burning) Comments: Incision is clean dry and intact with steri strips in place. Small amount of ecchymosis along inferior portion of the incision. No induration. Fundal Exam Fundus: Below Umbilicus (2 finger breaths) Rectal Exam Rectal Exam: Not Done Extremities Exam Extremity Exam: Normal; negative Edema Back/Spine/Pelvis Exam Back Exam: Not Done Skin Exam Skin Exam: Normal Neurological Exam Neurological Exam: Normal Psychiatric Exam Psychiatric Exam: Normal Additional findings Additional findings: Pt will continue fluoxetine
== END 2020-12-31 15:50 | disposition home or self-care (01) | DRG 787 ==
PROVIDERS: Admitting Provider Obstetrics & Gynecology; PCP Family Medicine; Visit Provider Obstetrics & Gynecology
PROC: 10D00Z1 Extraction of Products of Conception, Low, Open Approach (ICD-10-PCS; CPT 59514; principal; 2020-12-28 07:30)
DX: O34.211 Maternal care for low transverse scar from previous cesarean delivery (principal); F33.2 Major depressive disorder, recurrent severe without psychotic features; N85.8 Other specified noninflammatory disorders of uterus; Z3A.39 39 weeks gestation of pregnancy; Z37.0 Single live birth; O34.03 Maternal care for unspecified congenital malformation of uterus, third trimester; Q51.3 Bicornate uterus; O99.344 Other mental disorders complicating childbirth; O99.62 Diseases of the digestive system complicating childbirth; K21.9 Gastro-esophageal reflux disease without esophagitis
CPT/HCPCS: 59514; 82803; 99232; NC; J0456; J0690; J1100; J1885; J2405; J2765; J3010

== ENCOUNTER 2021-02-08 16:38 | Outpatient (REF) | payer BC, SELFPAY ==
[2021-02-12 15:48] LABS: Chlamydia Result Negative (Negative); GC Result Negative (Negative)
== END 2021-02-08 16:39 | disposition home or self-care (01) ==
LOC: LBN 16:38
PROVIDERS: PCP Family Medicine; Visit Provider Obstetrics & Gynecology
DX: Z11.3 Encounter for screening for infections with a predominantly sexual mode of transmission (principal)
CPT/HCPCS: 87491; 87591

== ENCOUNTER 2024-10-22 21:03 | Outpatient (REF) | payer MEDICAID, SELFPAY ==
--- NOTE | 2024-10-22 14:00 | PAPFT_PTH ---
PATIENT: Blanca Menendez LOC: [facility]#:[id number] AGE/SX: 34/F ROOM: RE10/22/[address]: Blanca Damico : 1990 BED: DIS: 10/22/2024 SPEC #: [id number] RECD: 10/25/24 13:20 STATUS: TEVIN RERoma #: [id number] HEATH: 10/22/24 14:[address]: Blanca Damico DEPT: [facility] Cytology RECD BY: Judy Justice Tissues: 1 - CX/ENDOCX FOR PAP SMEARS Procedures: PAP THIN PREP/UVM Screening HPV DNA PROBE Comments: (HPV 16 & 18/45)
--- OUTSIDE RECORDS SUMMARY | 2024-10-22 21:04 | XMS_ITS | Clinical Summary ---
[facility] [place] [address] Care Team Providers Care Road Grader Operator Name Role Phone Garry Toribio DO Primary Care Provider [phone] Allergies No known active allergies Medications Medication Sig Dispensed Refills Start Date End Date Status FLUoxetine (PROzac) 20 mg Capsule Take 1 capsule by mouth daily. 30 capsule 12 09/27/2020 Active lidocaine (LIDODERM) 5 % Adhesive Patch, Medicated Apply 1 patch onto the skin daily. (leave on for 12 hours and remove for 12 hours) 30 patch 09/27/2020 Active vitamin 27 & [id number] 60 mg iron-1 mg Tablet Take 1 tablet by mouth daily. 90 tablet 3 09/27/2020 Active zolpidem (Ambien) 5 mg Tablet Take 1 tablet by mouth nightly. 30 tablet 09/27/2020 Active Active Problems Problem Noted Date Diagnosed Date Major depressive disorder, recurrent episode Overview (09/23/2020): Patient is a 30-year-old woman 25 weeks with her third child who presents with worsening depression and passive suicidal ideation without any intent or plan. States that she chronically has dark thoughts, but that these thoughts have become more persistent over the last 4 to 5 months. Context for the worsening symptoms are managing the raising of her 2 children by herself, and ongoing divorce with the father of her children and financial stressors. Protective factors are her children and her soon-to-be third child. No past suicide attempts although has struggled with depression in the past. Major depressive disorder 09/22/2020 History of 2 sections 08/23/2020 Overview (08/23/2020): Breech 1st Abruption, PTL/PPROM 2nd Bicornuate uterus History of delivery History of gestational hypertension Resolved Problems Problem Noted Date Diagnosed Date Resolved Date Current severe episode of ma jeyson depressive disorder without psychotic features without prior episode 09/22/2020 09/22/2020 Tobacco abuse 08/23/2020 Family History Medical History Relation Comments Coronary Artery Disease Father Hypertension Father Seizure Disorder Father Depression Mother Relation Status Comments Father Mother Social History Tobacco Use Types Packs/Day Years Used Date Smoking Tobacco: Former Cigarettes Q uit: 09/22/2015 Smokeless Tobacco: Never Alcohol Use Standard Drinks/Week Comments Not Currently 0 (1 standard drink = 0.6 oz pur e alcohol) Sex and Gender Information Value Date Recorded Sex Assigned at Not on file Gender Identity Female 03/29/2020 10:56 AM EDT Sexual Orientation Not on file Last Filed Vital Signs Vital Sign Reading Time Taken Comments Blood Pressure 134/64 09/27/2020 10:54 AM EST Pulse 82 09/27/2020 10:54 AM EST Temperature 36.9 ??C (98.4 ??F) 09/27/2020 10:[address] Respiratory Rate 16 09/27/2020 10:54 AM EST Oxygen Saturation 98% 09/27/2020 10:54 AM EST Inhaled Oxygen Concentration - - Weight 101.6 kg (224 lb) 12/14/2020 4:47 PM EST Height 175.3 cm (5' 9) 12/14/2020 4:47 PM EST Body Mass Index 33.08 12/14/2020 4:47 PM EST Plan of Treatment Health Maintenance Due Date Last Done Comments HIV screen 2009 Hepatitis C Screening 2009 Hepatitis B vaccine (0-59 yrs) (1) 2010 Tetanus/Diphtheria/Pertussis Vaccines (1 - Tdap) 02/23 HPV test 2021 PAP Smear 2021 Covid-19 Vaccine ( - 2023-25 season) 2024 Influenza (Flu) vaccine (1 o f 1 - Influenza standard series) 07/25/2024 Advance Directives * Attempt Cardiopulmonary Resuscitation - Inpatient (Latest Code Status on File) Date Activated Date Inactivated Comments 09/22/2020 8:59 PM 09/27/2020 6:27 PM Question Answer Comments Code Status decision made by: Patient Care Teams Road Grader Operator Relationship Specialty Start Date End Date Garry Toribio DO [address] [place] [address] PCP - General Family Medicine 08/17/20
--- OUTSIDE RECORDS SUMMARY | 2024-10-22 21:04 | XMS_ITS | Encounter Summary ---
Author Organization [facility] [place] [address] Care Team Providers Care Cord Maker Name Role Phone Garry Toribio DO Primary Care Provider [phone] Encounter Details Date Type Department Care Team (Late st Contact Info) Description 10/27/2020 Ancillary Procedure Radiology Library at [facility] [place] [address] Garry Toribio DO [address] [place] [address] Social History Tobacco Use Types Packs/Day Years Used Date Smoking Tobacco: Former Cigarettes Q uit: 09/22/2015 Smokeless Tobacco: Never Alcohol Use Standard Drinks/Week Comments Not Currently 0 (1 standard drink = 0.6 oz pur e alcohol) Comments Yes Sex and Gender Information Value Date Recorded Sex Assigned at Not on file Gender Identity Female 03/29/2020 10:56 AM EDT Sexual Orientation Not on file documented as of this encounter Plan of Treatment Not on file documented as of this encounter Procedures Procedure Name Priority Date/Time Associated Diagnosis Comments FILM LIBRARY STORAGE ONLY ULTRASOUND STUDY Routine 10/27/2020 12:00 AM EST documented in this encounter Results * Film Library- Storage Only Ultrasound Study (10/27/2020 12:00 AM EST) Narrative AKUA - 12/13/2020 9:35 AM EST This exam is auto-finalizing. It's purpose is for storage only. Garry Toribio DO IMG FILM LIBRARY ORD ERABLES [place], [place] documented in this encounter Visit Diagnoses Not on filedocumented in this encounter Care Teams Cord Maker Relationship Specialty Start Date End Date Garry Toribio DO [address] [place] [address] PCP - General Family Medicine 08/17/20 documented as of this encounter
--- OUTSIDE RECORDS SUMMARY | 2024-10-22 21:04 | XMS_ITS | Encounter Summary ---
Author Organization [facility] [place] [address] Care Team Providers Care Quality Cloth Tester Name Role Phone Garry Toribio DO Primary Care Provider [phone] Encounter Details Date Type Department Care Team (Late st Contact Info) Description 12/12/2020 Ancillary Procedure Radiology Library at [facility] [place] [address] Garry Toribio DO [address] [place] [address] Social History Tobacco Use Types Packs/Day Years [...] FILM LIBRARY STORAGE ONLY ULTRASOUND STUDY Routine 12/12/2020 12:00 AM EST documented in this encounter Results * Film Library- Storage Only Ultrasound Study (12/12/2020 12:00 AM EST) Narrative AKUA - 12/13/2020 9:38 AM EST This exam is auto-finalizing. It's purpose is for storage only. Garry Toribio DO IMG FILM LIBRARY ORD ERABLES [facility] [place], [place] documented in this encounter Visit Diagnoses Not on filedocumented in this encounter Care Teams Quality Cloth Tester Relationship Specialty Start Date End Date Garry Toribio DO [address] [place] [address] PCP - General Family Medicine 08/17/20 documented as of this encounter
--- OUTSIDE RECORDS SUMMARY | 2024-10-22 21:05 | XMS_ITS | Encounter Summary ---
[facility] [place] [address] Care Team Providers Care Baggage Handling Supervisor Name Role Phone Garry Toribio DO Primary Care Provider [phone] Reason for Visit * Reason Onset Date Comments Prior Authorization 09/25/2020 CALL FROM [employer] ONGOING REVIEWER Encounter Details Date Type Department Care Team (Late st Contact Info) Description 09/25/2020 [place] [phone] Sri Diamond Prior Authorization (CALL FROM [employer] ONGOING REVIEWER) Social History Tobacco Use Types Packs/Day Years [...] on file documented as of this encounter Miscellaneous Notes * Telephone Encounter - Sri Diamond - 09/25/2020 9:01 AM EST REC'D CALL FROM MARINA THE REVIEWER WITH [employer] ASKING FOR ATTENDING PROVIDER'S NAME AND THE DRILLER PORTABLE - I INFORMED HIM MARGI Connell IS THE ONGOING REVIEWER AND GAVE HIM HER CONTACT INFO - HE ASKS THAT IF PT NEEDS ADDITIONAL DAYS TO HAVE MARGI CALL HIM AND LET HIM KNOW - ALSO IF THERE IS A DISPOSITION PLAN TO CALL AND LET HIM KNOW - NOTIFIED MARGI documented in this encounter Plan of Treatment Not on file documented as of this encounter Visit Diagnoses Not on filedocumented in this encounter Care Teams Baggage Handling Supervisor Relationship Specialty Start Date End Date Garry Toribio DO [address] [place] [address] PCP - General Family Medicine 08/17/20 documented as of this encounter
--- OUTSIDE RECORDS SUMMARY | 2024-10-22 21:05 | XMS_ITS | Encounter Summary ---
Author Organization [facility] [place] [address] Care Team Providers Care Ad Setter Name Role Phone Garry Toribio DO Primary Care Provider [phone] Encounter Details Date Type Department Care Team (Latest Contact Info) Description 08/23/2020 2:57 PM EDT - 08/23/2020 11:59 PM EDT Hospital [place] [phone] Edgar Sepulveda CNM [address] [place] [address] [address] [place] [address] Encounter for supervision of normal in second trimester, unspecified Discharge Disposition: Home Social History Tobacco Use Types Packs/Day Years Used Date Smoking Tobacco: Former Alcohol Use Standard Drinks/Week Comments Not Currently 0 (1 standard drink = 0.6 oz pur e alcohol) Comments Yes Sex and Gender Information Value Date Recorded Sex Assigned at Not on file Gender Identity Female 03/29/2020 10:56 AM EDT Sexual Orientation Not on file documented as of this encounter Medications at Time of Discharge Medication Sig Dispensed Refills Start Date End Date M-Soo Plus 27 mg iron- 1 mg Tablet TAKE ONE TABLET BY MOUTH EVERY DAY 08/16/2020 12/14/2020 aspirin EC 81 mg Tablet, Delayed Release (E.C.) Take 81 mg by mouth daily. 12/14/2020 documented as of this encounter Plan of Treatment Not on file documented as of this encounter Procedures Procedure Name Priority Date/Time Associated Diagnosis Comments US OB DETAILED MORPHOLOGY Routine 08/23/2020 3:59 PM EDT Encounter for supervision of normal in second trimester, unspecified documented in this encounter Results * US OB Detailed Morphology (08/23/2020 3:59 PM EDT) Anatomical Region Laterality Modality Pelvis, Abdomen Ultrasound 08/23/2020 3:50 PM EDT Impressions 08/23/2020 4:01 PM EDT 2nd Trimester - Detailed Morphology - Summary Single intrauterine with a gestational age of 20w 6d based on LMP ??(03/30/20) Composite age based on the current ultrasound alone is 20w 4d. Current growth parameters are consistent with prior dating indicating normal growth. Amniotic fluid volume is subjectively normal for gestational age. Cervical length measures 4.5 cm. No change with fundal pressure. No dynamic change observed. Detailed anatomic evaluation was performed and no structural abnormalities are noted. ?Vickie Hernandez, Staff Physician Electronically Signed Final Report ?? 08/23/2020 04:01 pm Narrative 08/23/2020 4:01 PM EDT OBSTETRICS REPORT ?(Signed Final 08/23/2020 04:01 pm) PATIENT INFO: ID #: ? [id number] ?: ??[birth year] (30 yrs)(F) Name: ? NICOLE BOWLES ?Visit Date: 08/23/2020 03:50 pm PERFORMED BY: Performed By: ? Pretty BARTON, ??Ashley Attending: ?David IGNACIO, Vickie Bernal Referred By: ?EDGAR SEPULVEDA Location: ? [place] SERVICE(S) PROVIDED: ??[facility] - Detailed Morphology - [id number] ?[id number] ??UOBTVCER - Cervical Length -Transvaginal - ? [id number] ??[id number] INDICATIONS: ??20 weeks gestation of ?Z3A.20 ??previous x2, bicornuate uterus EVALUATION: Num Of Fetuses: ? 1 Heart Rate(bpm): ??176 Cardiac Activity: ? Observed, normal rhythm Presentation: ? Breech Placenta: ? Posterior P. Cord Insertion: ?Within Normal Limits Amniotic Fluid ELIZABETH FV: ?Subjectively normal for gestational age --------- BIOMETRY: --------- BPD: ?47.6 ??mm ? G.Age: ?? 20w 3d OFD: ?60.4 ??mm HC: ?171.3 ??mm ? G.Age: ?? 19w 5d AC: ?151.9 ??mm ? G.Age: ?? 20w 3d FL: ? 36.9 ??mm ? G.Age: ?? 21w 5d HUM: ?33.3 ??mm ? G.Age: ?? 21w 2d CER: ?19.9 ??mm ? G.Age: ?? 19w 0d NFT: ? 4.3 ??mm LV: ?7.4 ??mm CM: ?3.2 ??mm CI: ?78.8 ??% ? 70 - 86 FL/HC: ? 21.5 ??% ? 15.9 - 20.3 HC/AC: ? 1.13 ?1.06 - 12.18 FL/BPD: ?77.5 ??% FL/AC: ? 24.3 ??% ? Est. FW: ? 383 ??gm ?0 lb 14 oz OB HISTORY: : ?6 ? Term: ?? 2 ? SAB: ?? 1 Living: ? 2 GESTATIONAL AGE: LMP: ? 20w 6d ?Date: ??03/30/20 ? MARLENI: ?? 01/04/21 U/S Today: ? 20w 4d ?MARLENI: ?? 01/06/21 Best: ?20w 6d ?? Det. By: ??LMP ??(03/30/20) ?MARLENI: ?? 01/04/21 TARGETED ANATOMY: Central Nervous System Calvarium/Cranial V.: ??Within Normal Limits Intracranial Aurea: ? Within Normal Limits Cavum: ? Within Normal Limits Parenchyma: ?Within Normal Limits Lateral Ventricles: ?Within Normal Limits Choroid Plexus: ?Within Normal Limits Cereb./Vermis: ? Within Normal Limits Cisterna Magna: ?Within Normal Limits Midline Falx: ?Within Normal Limits Spine Cervical: ?Visualized Thoracic: ?Visualized Lumbar: ?Visualized Sacral: ?Visualized Shape/Curvature: ? Visualized Head/Neck Face: ?Within Normal Limits Lips: ?Within Normal Limits Neck: ?Within Normal Limits Nuchal Fold: ? Within Normal Limits Nasal Bone: ?Present Profile: ? Visualized Orbits/Eyes: ? Visualized Mandible: ?Visualized Maxilla: ? Visualized Thorax Thoracic Contour: ?Within Normal Limits Lungs: ? Visualized 4 Chamber View: ?Within Normal Limits Cardiac Motion: ?Normal Rhythm Rt Outflow Tract: ?Visualized Lt Outflow Tract: ?Visualized Aortic Arch: ? Visualized Ductal Arch: ? Visualized SVC: ? Visualized Cardiac [place]: ?Visualized Diaphragm: ? Visualized 3 Vessel View: ? Visualized IVC: ? Visualized Abdomen Ventral Wall: ?Visualized Cord Insertion: ?Visualized Situs: ? Normal Stomach: ? Visualized Liver: ? Visualized Lt Kidney: ? Visualized Rt Kidney: ? Visualized Bladder: ? Visualized Bowel: ? Visualized Extremities Lt Humerus: ?Within Nomal Limits Rt Humerus: ?Within Normal Limits Lt Forearm: ?Within Normal Limits Rt Forearm: ?Within Normal Limits Lt Hand: ? Within Normal Limits Rt Hand: ? Within Normal Limits Lt Femur: ?Within Normal Limits Rt Femur: ?Within Normal Limits Lt Lower Leg: ?Within Normal Limits Rt Lower Leg: ?Within Normal Limits Lt Foot: ? Visualized Rt Foot: ? Visualized Other Umbilical Cord: ?3 vessel cord Genitalia: ? Female Procedure Note Vickie Hernandez MD - 08/23/2020 OBSTETRICS REPORT (Signed Final 08/23/2020 04:01 pm) PATIENT INFO: ID #: [id number] : [birth year] (30 yrs)(F) Name: NICOLE BOWLES Visit Date: 08/23/2020 03:50 pm PERFORMED BY: Performed By: Ashley Olsen RDMS Attending: Vickie Hernandez MD Referred By: EDGAR SEPULVEDA Location: [place] SERVICE(S) PROVIDED: [facility] - Detailed Morphology - [id number] UOBTVCER - Cervical Length -Transvaginal - [id number] INDICATIONS: 20 weeks gestation of Z3A.20 previous x2, bicornuate uterus EVALUATION: Num Of Fetuses: 1 Heart Rate(bpm): 176 Cardiac Activity: Observed, normal rhythm Presentation: Breech Placenta: Posterior P. Cord Insertion: Within Normal Limits Amniotic Fluid ELIZABETH FV: Subjectively normal for gestational age --------- BIOMETRY: --------- BPD: 47.6 mm G.Age: 20w 3d OFD: 60.4 mm HC: 171.3 mm G.Age: 19w 5d AC: 151.9 mm G.Age: 20w 3d FL: 36.9 mm G.Age: 21w 5d HUM: 33.3 mm G.Age: 21w 2d CER: 19.9 mm G.Age: 19w 0d NFT: 4.3 mm LV: 7.4 mm CM: 3.2 mm CI: 78.8 % 70 - 86 FL/HC: 21.5 % 15.9 - 20.3 HC/AC: 1.13 1.06 - 1.25 FL/BPD: 77.5 % FL/AC: 24.3 % 20 - 24 Est. FW: 383 gm 0 lb 14 oz OB HISTORY: : 6 Term: 2 SAB: 1 [place] GESTATIONAL AGE: LMP: 20w 6d Date: 03/30/20 MARLENI: 01/04/21 U/S Today: 20w 4d MARLENI: 01/06/21 Best: 20w 6d Det. By: LMP (03/30/20) MARLENI: 01/04/21 TARGETED ANATOMY: Central Nervous System Calvarium/Cranial V.: Within Normal Limits Intracranial Aurea: Within Normal Limits Cavum: Within Normal Limits Parenchyma: Within Normal Limits Lateral Ventricles: Within Normal Limits Choroid Plexus: Within Normal Limits Cereb./Vermis: Within Normal Limits Cisterna Magna: Within Normal Limits Midline Falx: Within Normal Limits Spine Cervical: Visualized Thoracic: Visualized Lumbar: Visualized Sacral: Visualized Shape/Curvature: Visualized Head/Neck Face: Within Normal Limits Lips: Within Normal Limits Neck: Within Normal Limits Nuchal Fold: Within Normal Limits Nasal Bone: Present Profile: Visualized Orbits/Eyes: Visualized Mandible: Visualized Maxilla: Visualized Thorax Thoracic Contour: Within Normal Limits Lungs: Visualized 4 Chamber View: Within Normal Limits Cardiac Motion: Normal Rhythm Rt Outflow Tract: Visualized Lt Outflow Tract: Visualized Aortic Arch: Visualized Ductal Arch: Visualized SVC: Visualized Cardiac [place]: Visualized Diaphragm: Visualized 3 Vessel View: Visualized IVC: Visualized Abdomen Ventral Wall: Visualized Cord Insertion: Visualized Situs: Normal Stomach: Visualized Liver: Visualized Lt Kidney: Visualized Rt Kidney: Visualized Bladder: Visualized Bowel: Visualized Extremities Lt Humerus: Within Nomal Limits Rt Humerus: Within Normal Limits Lt Forearm: Within Normal Limits Rt Forearm: Within Normal Limits Lt Hand: Within Normal Limits Rt Hand: Within Normal Limits Lt Femur: Within Normal Limits Rt Femur: Within Normal Limits Lt Lower Leg: Within Normal Limits Rt Lower Leg: Within Normal Limits Lt Foot: Visualized Rt Foot: Visualized Other Umbilical Cord: 3 vessel cord Genitalia: Female IMPRESSION 2nd Trimester - Detailed Morphology - Summary Single intrauterine with a gestational age of 20w 6d based on LMP (03/30/20) Composite age based on the current ultrasound alone is 20w 4d. Current growth parameters are consistent with prior dating indicating normal growth. Amniotic fluid volume is subjectively normal for gestational age. Cervical length measures 4.5 cm. No change with fundal pressure. No dynamic change observed. Detailed anatomic evaluation was performed and no structural abnormalities are noted. Vickie Hernandez, Staff Physician Electronically Signed Final Report 08/23/2020 04:01 pm Edgar Sepulveda CNM IMG US OB ORDERABLE S documented in this encounter Visit Diagnoses Diagnosis Encounter for supervision of normal in second trimester, unspecified documented in this encounter Care Teams Ad Setter Relationship Specialty Start Date End Date Garry Toribio DO [address] [place] [address] PCP - General Family Medicine 08/17/20 documented as of this encounter
--- OUTSIDE RECORDS SUMMARY | 2024-10-22 21:05 | XMS_ITS | Encounter Summary ---
Author Organization [facility] Address [facility] [place] [address] Care Team Providers Care Stock Speculator Name Role Phone Garry Toribio DO Primary Care Provider [phone] Reason for Visit * Auth/Cert Specialty Diagnoses / Procedures Referred By Stephanie vu Referred To Contact Diagnoses Major depressive disorder Depression Procedures EMERGENCY IPI PSYCH Referral ID Status Reason Start Date Expiration Date Visits Re quested Visits Authorized [id number] 1 1 Encounter Details Date Type Department Care Team (Latest Contact Info) Description 09/22/2020 6:48 PM EDT - 09/27/2020 3:00 PM EST Hospital Encounter [facility] [place] [id number] [place] [address] Chest pain on breathing Discharge Disposition: Home Social History Tobacco Use [...] on file documented as of this encounter Last Filed Vital Signs Vital Sign Reading Time Taken Comments Blood Pressure 134/64 09/27/2020 10:54 AM EST Pulse 82 09/27/2020 10:54 AM EST Temperature 36.9 ??C (98.4 ??F) 09/27/2020 10:[address] Respiratory Rate 16 09/27/2020 10:54 AM EST Oxygen Saturation 98% 09/27/2020 10:54 AM EST Inhaled Oxygen Concentration - - Weight 99 kg (218 lb 3.2 oz) 09/24/2020 9:27 AM EST Height 175.3 cm (5' 9) 09/22/2020 5:00 PM EDT Body Mass Index 32.22 09/22/2020 5:00 PM EDT documented in this encounter Discharge Summaries * Consuelo Escalante MD - 09/27/2020 1:01 PM EST Discharge Summary Patient Name: Nicole Bowles Patient Age: 30 y.o. Language: Uruguayan Race: White Ethnicity: Not nor Admit date: 09/22/2020 Discharge date and time: 09/27/2020 1500 Attending Physician: Dr. Zavala Discharge Physician: Dr. Escalante Discharge Diagnoses (Hospital Problems) and Secondary Diagnoses (Chronic Problems): Active Hospital Problems Diagnosis ??? Major depressive disorder, recurrent episode ??? Major depressive disorder Resolved Hospital Problems Diagnosis Date Resolved ??? Current severe episode of major depressive disorder without psychotic features without prior episode 09/22/2020 Active Non-Hospital Problems Diagnosis ??? History of 2 sections ??? Bicornuate uterus ??? History of delivery ??? History of gestational hypertension Follow-up Recommendations for Providers: Please monitor the patient's condition, and adjust medications accordingly Expanding plasma volume during has been observed to cause decreased blood levels of fluoxetine. However, the clinical relevance of this phenomenon remains unclear. Recommend low thresh-holdto increase fluoxetine to 40mg qd if pt's depression symptoms worsen. Follow-up Providers/Appointments: General Instructions Follow up appointments: PCP [facility] Garry Toribio DO [place], [place] Phone - [phone] Fax - [phone] Hospital Appointment (in-person)- September 29 10:15am [facility] [address] [place] [address] Phone: Fax: Germaine Phone Intake Appointment - September 28 at 11am You will be receiving an email at [email or web address] from to participate in our bridge program (on-line group therapy). This will require a - account. It will be on Tuesdays and Fridays from 10-11:30 online. Inpatient Provider Contact Information: For questions regarding this document (including laboratory or other studies) or issues relating tothis hospitalization, please contact your patient child care centre director, Jennifer Rosenbaum RN, through the [facility] Designated [facility]ker . Issues after hours and on weekends will be handled by the assistant to the vice president on-call who can be reached through the [facility] Designated Broker. Medication Instructions Continue to take all of the medications as instructed. Any medication changes will be addressed at your next outpatient appointment with the individual who prescribes your medications. Advance Care Plan The patient has an appointed surrogate decision maker: Name of surrogate decision maker: The patient has medical advance directives: The patient has psychiatric advance directives: The patient was offered information about designating a surrogate decision maker, medical advance directives and psychiatric advance directives. The patient declines further information at this time. The patient was provided a medical and/or psychiatric advance directive and declines to complete itat this time. All eleven elements of the Transition Record have been reviewed with the patient. Future Appointments and Orders Future Appointments and Orders Future Appointments Provider Department Dept Phone 09/29/2020 10:00 AM Fish Butler PsyD Psychiatry and Behavioral Health at [facility] Arrive at: Home [phone] Please view full video visit instructions here. If you have not previously downloaded the software, please do so here: For all desktops/laptops; for Android devices; for Apple/iOS devices FAQs: Join Video Visit button not connecting? - This may be due to pop-up blockers. - Click this link to see: How to Disable Pop-Up Block for myD-H Video Visits Zoom asking for a meeting password? 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 Of note, she started sertraline 25mg on 09/11, after which she started feeling more depressed, so she stopped on 09/19. ?? She says she has had a certain level of darkness even as a child and had intermittent depression since adolescence. Patient endorses history of cutting as a teen, but has never had self-injurious behavior as an adult. Lately, she has been engulfed by a series of stressors--she from her in June 2020, she is now taking care of 2 kids on her own, her [employer] business dwindled as COVID came, and she and her kids have been living on unemployment check, which is $185/week. ?? She is under enormous stress and feels like giving up on life. She has images of cutting herself with a knife or driving off a rodolfo, but she says she would never act on those thoughts and has never reached for a knife or gotten into a car with the intent of getting in an accident. No preparatory behavior. She cites her children as strong protective factors against suicide and thinks about what her kids' lives would be like if she weren't here. ?? In her early 20s, she says at times she felt very hyper. There were times when she had trouble falling asleep for 3-4 days and felt exhausted by the end of it. She denies increased level of impulsivity, grandiosity, or increased productivity during these episodes. ?? Mood: ok now, but overwhelmed by coming into a hospital. Sleep: Poor. 3-4 hours nightly, even when away from kids. Interest: Lost interest in crafting. Guilt: Very low Energy: Fatigued Concentration: Poor Appetite: Terrible. Psychomotor: Endorses retardation. Suicide: Endorses passive SI. Has had thoughts about cutting herself or driving off a rodolfo, but never found herself preparing for these things. Hospital Course: Nicole Bowles was voluntarily admitted to inpatient psychiatry for safety, stabilization, and medication optimization. Standard admission labs were ordered and pertinent results are located below. During this admission, the following medication changes were made: started fluoxetine 20mg qd, zolpidem 5mg qhs. She tolerated these medication changes well and denied any side effects throughout admission or at time of dicharge. She was pleasant, cooperative, and behaviorally appropriate for the duration of this admission. Her mood and mental status gradually improved throughout this admission. She was active in the therapeutic milieu and engaged in her treatment throughout this hospitalization. The hospital course was without complication. On the day of discharge, the patient discussed feeling ready to go home, but slightly anxious. She stated that she planned on talking to her mom more for support, and that they've been working together to come up with a child-care plan so that patient will have some time to herself. She also statesthat she found out that her brother's girlfriend has struggled with depression in the past, and is excited that they'll be able to support each other. Pt was happy to find out that there are so many crisis lines available should she require them. Pt has no physical complaints except for chronic back pain, which is well controlled today. She continues to feel positively about her . The patient denied thoughts of suicide, homicide, or violence. Mental status exam is below. Follow up was scheduled as described below, and this information was provided to the patient in her After Visit Summary. Patient was also provided with emergency contact information. Patient was referred to bridge clinic on discharge. Follow-up plan: [x] Obtained/told to obtain appointment from PCP, indicate name/phone number here: Garry Toribio DO at [x] Obtained/told to obtain appointment from [facility], indicate program here [facility] Bridge Program Services Needed: [x] skills group program [] psychopharmacology follow-up, indicate for which medication [] needs review by patient [facility] services (PFS) Referral Check list [x] Ensured that patient can access video tele-health connection [x] Ensured that patient understands that cameras must remain on during group appointments [x] Provided patient with Bridge Program information using [facility] [employer] Bridge discharge instructions [x] Added patient to shared list for Bridge Program [x] If new medication started, provided enough for for 5 days [x] given number for PFS [phone] [no] did referring to the BRIDGE program divert the patient from an inpatient hospitalization ? YESor NO Mental Status Exam on Day of Discharge: Ambulates independently. No tics or tremors noted. Age appropriate, casually dressed, good eye contact. Calm and cooperative. Attentive to the interview. Relates well. Speech reg r/r/prosody. Mood good and affect is full and mood congruent. Thoughts are l/l/gd and associations are intact. Denies SI/HI. Denies AH/VH or paranoia. Language without echolalia or clanging. Memory grossly intact. Alert and oriented x 4. I/J: fair Functional and Cognitive Status: good Important Studies: Last 3 wbc, hgb, hct plt Recent Labs 09/25/20 1140 WBC 11.7* HGB 10.8* HCT 33.3* PLATELET 267 Last 3 Lytes Recent Labs 09/25/20 1140 NA 135 K 3.9 CL 102 CO2 24 BUN 6* CREATININE 0.60* Last 3 Ca, Mg, Phos Recent Labs 09/25/20 1140 CALCIUM 9.0 EKG QTc: Recent Labs 09/25/20 1111 QTCCALC 435 QRSDURATION 80 Discharge Medications: (Reviewed at time of discharge, indication for use included): Your Medications New Medications Dose Details FLUoxetine 20 mg Cap Commonly known as: PROzac Take 1 capsule by mouth daily. 20 mg Quantity: 30 capsule Refills: 12 lidocaine 5 % Ptmd Commonly known as: LIDODERM Apply 1 patch onto the skin daily. (leave on for 12 hours and remove for 12 hours) Quantity: 30 patch Refills: 0 vitamin 27 & uosgbkd-cjsa-IU 60 mg iron-1 mg Tab Take 1 tablet by mouth daily. 1 tablet Quantity: 90 tablet Refills: 3 zolpidem 5 mg Tab Commonly known as: Ambien Take 1 tablet by mouth nightly. 5 mg Quantity: 30 tablet Refills: 0 Continued medications, unchanged Dose Details aspirin EC 81 mg Tbec Take 81 mg by mouth daily. 81 mg Refills: 0 M-Soo Plus 27 mg iron- 1 mg Tab TAKE ONE TABLET BY MOUTH EVERY DAY Generic drug: PNV,calcium 04-boyf-hhoer acid Refills: 0 Antipsychotic Quality Measure (select one of three reasons): No Updated Allergies/ADRs: No Known Allergies Immunizations Given this Hospitalization: There is no immunization history on file for this patient. Smoking Status at Discharge: Social History Tobacco Use Smoking Status Former Smoker ??? Quit date: 09/22/2015 ??? Years since quittin.0 Smokeless Tobacco Never Used Instructions Given to Patient at Discharge: Patient Instructions PATIENT DISCHARGE INSTRUCTIONS Principal diagnosis at discharge and reason for admission: Major Depressive Disorder, recurrent episode Vital Signs: BP: 126/61, Heart Rate: 80, Temp: 36.3 ??C (97.4 ??F), Resp: 18, BMI (Calculated): 32.93 Height: 175.3 cm (5' 9) (09/22/20 1700) Weight: 99 kg (218 lb 3.2 oz) (09/24/20 0927) Operations, Tests, and Procedures with Results: none Important Lab Data: Psychiatry Labs: Preg: No results found for: HCGQUAL, HCGQUANT Heme: Lab Results Component Value Date WBC 11.7 (H) 09/25/2020 HGB 10.8 (L) 09/25/2020 HCT 33.3 (L) 09/25/2020 PLATELET 267 09/25/2020 MCV 92.2 09/25/2020 NEUTROABS 8.44 (H) 09/25/2020 No results found for: HA1C, SEDRATE Chem: Lab Results Component Value Date NA 135 09/25/2020 K 3.9 09/25/2020 CL 102 09/25/2020 CO2 24 09/25/2020 BUN 6 (L) 09/25/2020 GLUCOSE 74 09/25/2020 Lab Results Component Value Date CALCIUM 9.0 09/25/2020 LFTs: No results found for: ALT, AST, GGT, ALKPHOS, BILITOT, AMMONIA Coags: No results found for: PTT, PT, INR Thyroid: No results found for: TSH, A4ISNES, TT4 Lipids and HgbA1C: No results found for: CHLPL, HDL, CHOLHDL, LDLCHOL, LDLDIRECT, TRIG No results found for: HA1C Vit Lvls: No results found for: SDTDRBRB24, SFOLATE UA: No results found for: GLUCOSEU, KETONESUA, PROTEINUADIP, BLOODUADIP, LEUKOESTERUA, NITRATEUA, WBCUA (May not represent most recent UA results. See eD-H labs for more details.) Tox: No results found for: ETHANOL, ACTMNPHEN, SALICYLATE, LEAD No results found for: UDAUSCREEN Rx Lvls: No results found for: LITHIUM, CARBAMAZEPIN, VALPROATE, LAMOTRIGINE, CLOZAPINE Pending Labs, Procedures, and studies at Discharge: none Discharge Disposition: home Primary Care Physician: Garry Toribio DO [phone] Special Physician Instructions: Please consider increasing fluoxetine to 40mg daily if patient experiences worsening of mood symptoms Special Instructions Provided to Nicole Bowles: You have been referred to the [facility]. The [facility] provides short-term psychiatric services to adults as they transition to arranged long-term outpatient care. Please be prepared to update the [facility] Clinic staff as to what your follow-up plan will be so that we can support that plan. If you are already engaged in established psychiatric care, you are being referred to benefit from increased psychiatric support. The primary form of treatment offered by the [facility] is group therapy. Groups are educational, instructive and informative. They incorporate a cognitive behavioral treatment approach and address topics such as stress management, coping and interpersonal skills and general symptom management. The [facility] also provides short term medication management if needed as indicated by the clinician referring you. You may attend multiple skill enhancing groups per week. Groups are scheduled for 90 minutes on Friday and Friday at 10-11:30 and are currently online due to COVID. Groups are accessed like other telehealth visits through your [employer] account or via a link sent to you in a text message or email. PLEASE NOTE: YOU MUST KEEP YOUR VIDEO CAMERA ON DURING THE GROUP VISITS. If needed, you can change your display name (e.g., first name only) with the instructions at the end of this sheet. Your insurance company will be contacted to determine eligibility and coverage for these groups. Ifyou do not have insurance, please contact the [facility] Patient Financial Services at . You will be contacted to discuss a start date and make sure that you can make a video connection Ifyou have waited more than one business day without hearing back from anyone, or if you have specific questions about the clinic, please call: . myD-H Video Visit - Change Zoom Display Name You can now connect with your provider virtually through your [employer] portal with a scheduled myD-H Video Visit. There may be times where you wish to change your display name. The below document will walk you through these steps. 1. Once you are in the Zoom meeting, click Participants in the bottom toolbar. The Participants sidebar will open. 2. Hover over your name on the Participant list and click the More button. 3. Select Rename. 4. Enter your preferred display name. 5. Click OK. Call your doctor, your local mental health center, or your local emergency room if you develop worsening symptoms of depression, anxiety, thoughts of harming yourself, thoughts of harming others, or any other decline in your overall condition. [facility] Emergency Services: [facility]: Phone: [facility] Emergency Services: [phone] [facility] Central Access Services: [phone] [facility] Main Line: [phone] Activity level: no restrictions from psychiatry Diet: no restrictions from psychiatry Driving: do not drive if sedated by medications Medications have been reviewed with the patient and the patient understands the use and side effects of these medications as evidenced by discussions on interdisciplinary rounds. A copy of the AVS has been reviewed with, and given to, the patient. Discharge References/Attachments None Discharge Condition/Prognosis: Satisfactory condition. Prognosis is dependent on patient's participation in ongoing treatment and adherence with prescribed medications. Signed: Consuelo Escalante MD 09/27/2020 Inpatient Provider Contact Information: Emergency Services (Crisis Line): [phone] [facility]: [phone] [facility] Main Line: [phone] Associated attestation - Zack Zavala MD - 09/27/2020 2:18 PM EST I have personally seen and examined the patient. The patient denies suicidal ideations or homicidalideations or paranoia. The patient is future oriented and has specific practical and behavioral goals upon leaving the hospital. Patient responded well to therapeutic milieu therapy and titration of antidepressant medication, reporting improved mood and hopefulness, while denying adverse effects. Patient understands potential risk of medication during and balances this risk with benefitof improved mood. Alcohol Use Patient does not meet criteria for unhealthy alcohol use. Drug Use Disorder Pt does not meet criteria for substance use disorder Tobacco Use Patient is a non-smoker. The patient is ready for discharge with aftercare per AVS. Greater than 30 minutes was spent coordinating discharge for this patient and included hmpp-hy-fcnghalguoknd and exam, explanation of after visit instructions and medications to the patient and necessary caregivers, documentation, and prescription management. Zack Zavala MD documented in this encounter Discharge Instructions * Discharge Instructions* Jennifer Rosenbaum RN - 09/26/2020 12:54 PM EST Follow up appointments: PCP [facility] Primary Care Garry Toribio DO [place], [place] Phone - [phone] Fax - [phone] Hospital Appointment (in-person)- September 29 10:15am [address] [address] Phone: Fax: Germaine Phone Intake Appointment - September 28 at 11am You will be receiving an email at [email or web address] from to participate in our bridge program (on-line group therapy). This will require a [employer] account. It will be on Tuesdays and Fridays from 10-11:30 online. Inpatient Provider Contact Information: For questions regarding this document (including laboratory or other studies) or issues relating tothis hospitalization, please contact your patient child care centre director, Jennifer Rosenbaum RN, through the [facility] Designated Broker . Issues after hours and on weekends will be handled by the assistant to the vice president on-call who can be reached through the [facility] Designated Broker. Medication Instructions Continue to take all of the medications as instructed. Any medication changes will be addressed at your next outpatient appointment with the individual who prescribes your medications. Advance Care Plan The patient has an appointed surrogate decision maker: Name of surrogate decision maker: The patient has medical advance directives: The patient has psychiatric advance directives: The patient was offered information about designating a surrogate decision maker, medical advance directives and psychiatric advance directives. The patient declines further information at this time. The patient was provided a medical and/or psychiatric advance directive and declines to complete itat this time. All eleven elements of the Transition Record have been reviewed with the patient. * Patient Instructions* Consuelo Escalante MD - 09/26/2020 2:13 PM EST PATIENT DISCHARGE INSTRUCTIONS Principal diagnosis at discharge and reason for admission: Major Depressive Disorder, recurrent episode Vital Signs: BP: 126/61, Heart Rate: 80, Temp: 36.3 ??C (97.4 ??F), Resp: 18, BMI (Calculated): 32.93 Height: 175.3 cm (5' 9) (09/22/20 1700) Weight: 99 kg (218 lb 3.2 oz) (09/24/20 0927) Operations, Tests, and Procedures with Results: none Important Lab Data: Psychiatry Labs: Preg: No results found for: HCGQUAL, HCGQUANT Heme: Lab Results Component Value Date WBC 11.7 (H) 09/25/2020 HGB 10.8 (L) 09/25/2020 HCT 33.3 (L) 09/25/2020 PLATELET 267 09/25/2020 MCV 92.2 09/25/2020 NEUTROABS 8.44 (H) 09/25/2020 No results found for: HA1C, SEDRATE Chem: Lab Results Component Value Date NA 135 09/25/2020 K 3.9 09/25/2020 CL 102 09/25/2020 CO2 24 09/25/2020 BUN 6 (L) 09/25/2020 GLUCOSE 74 09/25/2020 Lab Results Component Value Date CALCIUM 9.0 09/25/2020 LFTs: No results found for: ALT, AST, GGT, ALKPHOS, BILITOT, AMMONIA Coags: No results found for: PTT, PT, INR Thyroid: No results found for: TSH, [id number], TT4 Lipids and HgbA1C: No results found for: CHLPL, HDL, CHOLHDL, LDLCHOL, LDLDIRECT, TRIG No results found for: HA1C Vit Lvls: No results found for: [id number], SFOLATE UA: No results found for: GLUCOSEU, KETONESUA, PROTEINUADIP, BLOODUADIP, LEUKOESTERUA, NITRATEUA, WBCUA (May not represent most recent UA results. See eD-H labs for more details.) Tox: No results found for: ETHANOL, ACTMNPHEN, SALICYLATE, LEAD No results found for: UDAUSCREEN Rx Lvls: No results found for: LITHIUM, CARBAMAZEPIN, VALPROATE, LAMOTRIGINE, CLOZAPINE Pending Labs, Procedures, and studies at Discharge: none Discharge Disposition: home Primary Care Physician: Garry Toribio DO [phone] Special Physician Instructions: Please consider increasing fluoxetine to 40mg daily if patient experiences worsening of mood symptoms Special Instructions Provided to Nicole Bowles: You have been referred to the [facility]. The [facility] provides short-term psychiatric services to adults as they transition to arranged long-term outpatient care. Please be prepared to update the [facility] staff as to what your follow-up plan will be so that we can support that plan. If you are already engaged in established psychiatric care, you are being referred to benefit from increased psychiatric support. The primary form of treatment offered by the [facility] is group therapy. Groups are educational, instructive and informative. They incorporate a cognitive behavioral treatment approach and address topics such as stress management, coping and interpersonal skills and general symptom management. [facility] also provides short term medication management if needed as indicated by the clinician referring you. You may attend multiple skill enhancing groups per week. Groups are scheduled for 90 minutes on Friday and Friday at 10-11:30 and are currently online due to COVID. Groups are accessed like other telehealth visits through your [employer] account or via a link sent to you in a text message or email. PLEASE NOTE: YOU MUST KEEP YOUR VIDEO CAMERA ON DURING THE GROUP VISITS. If needed, you can change your display name (e.g., first name only) with the instructions at the end of this sheet. Your insurance company will be contacted to determine eligibility and coverage for these groups. Ifyou do not have insurance, please contact the [facility] at . You will be contacted to discuss a start date and make sure that you can make a video connection Ifyou have waited more than one business day without hearing back from anyone, or if you have specific questions about the clinic, please call: . myD-H Video Visit - Change Zoom Display Name You can now connect with your provider virtually through your myD-H portal with a scheduled myD-H Video Visit. There may be times where you wish to change your display name. The below document will walk you through these steps. 1. Once you are in the Zoom meeting, click Participants in the bottom toolbar. The Participants sidebar will open. 2. Hover over your name on the Participant list and click the More button. 3. Select Rename. 4. Enter your preferred display name. 5. Click OK. Call your doctor, your local mental health center, or your local emergency room if you develop worsening symptoms of depression, anxiety, thoughts of harming yourself, thoughts of harming others, or any other decline in your overall condition. [facility] Emergency Services: [facility] Human Services: Phone: [facility] Emergency Services: [phone] [facility] Central Access Services: [phone] [facility] Main Line: [phone] Activity level: no restrictions from psychiatry Diet: no restrictions from psychiatry Driving: do not drive if sedated by medications Medications have been reviewed with the patient and the patient understands the use and side effects of these medications as evidenced by discussions on interdisciplinary rounds. A copy of the AVS has been reviewed with, and given to, the patient. documented in this encounter Medications at Time of Discharge Medication Sig Dispensed Refills Start Date End Date FLUoxetine (PROzac) 20 mg Capsule Take 1 capsule by mouth daily. 30 capsule 12 09/27/2020 lidocaine (LIDODERM) 5 % Adhesive Patch, Medicated Apply 1 patch onto the skin daily. (leave on for 12 hours and remove for 12 hours) 30 patch 09/27/2020 vitamin 27 & [id number] 60 mg iron-1 mg Tablet Take 1 tablet by mouth daily. 90 tablet 3 09/27/2020 zolpidem (Ambien) 5 mg Tablet Take 1 tablet by mouth nightly. 30 tablet 09/27/2020 M- Plus 27 mg iron- 1 mg Tablet TAKE ONE TABLET BY MOUTH EVERY DAY 08/16/2020 12/14/2020 aspirin EC 81 mg Tablet, Delayed Release (E.C.) Take 81 mg by mouth daily. 12/14/2020 documented as of this encounter Progress Notes * Yesenia Johnson RN - 09/27/2020 3:16 PM EST Psychiatric Nursing Discharge Note Patient Completed Relapse Prevention Plan: Yes Patient aware of follow-up appointments: Yes Patient evidences understanding of medication use and regime: Yes Patient belongings returned: Yes Patient was given opportunity to place crisis number in their personal cellphone: N/a Patient left unit with: Yesenia RN At what time? 1500 * Ember Martinez MHT - 09/27/2020 12:24 PM EST Inpatient Daily Group Note Group: Goals Attendance: Present Behavior: Quiet Therapeutic Work Observed: Minimal Mood: Stable and Calm Notes: Outlined group expectations of: not being able to attend group late in addition to not beingable to leave group once there. Group room protocol was discussed: no food, no leaving for the bathroom and water only. Also reminded patients of the twice daily room checks (once per shift) and the rationale for doing so. Group ended with daily meditation from The Language of Letting Go. Patient's goals are: Take a shower in my own shower; patient is discharging around 3pm today. JACINTO Thomason 09/27/2020 Inpatient Daily Group Note Group: The thought feeling behavior model was presented and discussed (feelings coming out of no where being a myth was pointed out). Information provided about wearing stacy colored lenses: How past experiences, including trauma, shade the way we view the world. Common Styles of Thinking (HUMAN RESOURCES TEMP's) were reviewed: catastrophic, all or nothing and emotion reasoning to name a few. The skill of restructuring thoughts to be more realistic was then introduced and worked on. Attendance: Present Behavior: Quiet and Attentive Therapeutic Work Observed: Minimal Mood: Stable and Calm Notes: Seemed interested in the concept that our past experiences shade the way we view the world. JACINTO Thomason 09/27/2020 Inpatient Daily Group Note Group: ACT - doing what matters. Values versus goals video shown. Discussion about values using values card ensued. Attendance: Present Behavior: Quiet and Attentive Therapeutic Work Observed: Minimal Mood: Stable and Calm Notes: Appeared to be engaged in active listening; continued quietness in groups. JACINTO Thomason 09/27/2020 * Jennifer Rosenbaum RN - 09/26/2020 1:30 PM EST Contacted Juliet Rios was added to the Bridge program. * Zack Zavala MD - 09/26/2020 12:20 PM EST Psychiatry Inpatient - Progress Note 09/26/2020 ID: Nicole Bowles is a 30 y.o. female admitted on 09/22/2020 for worsening suicidal ideation withno intent or plan. Hospital day 4. Diagnosis: Major depressive disorder, recurrent episode Pertinent medical issues being addressed: 25 weeks Interval History: (1,1,4) Per nursing report: Pt slept well for 7.5h. reporting improved depression and anxiety. Had moment of passive si yesterday. No si this am. Participating in groups. Per Interview: Pain in chest subsided with musculoskeletal interventions (lidocaine) and time. Refreshing sleep. Feels more able to handle stress. No si today. No med side effects. Plans on f/u with therapy after leaving unit. Review of Systems: (0,1,2) CONST Weight change secondary to CV No chest pain RESP no shortness of breath GI no nausea and no vomiting NEURO no headache MS pain Lower back pain secondary to PSYCH See above Other n/a Suicide Risk Factors on Day of Admission: Enduring Factors: chronic mental health problems and limited coping skills Dynamic Factors: depressive symptoms and sense of hopelessness Protective Factors: future orientation Access to Firearms: No Physical Exam: (1,6,9) Vitals (24hr Range): Temp: [36.6 ??C (97.9 ??F)-36.9 ??C (98.4 ??F)] Resp: [16-18] Heart Rate: [82-99] BP: (124-129)/(60-69) SpO2: [97 %-100 %] Patient Vitals for the past 168 hrs: Weight 09/24/20 0927 99 kg (218 lb 3.2 oz) 09/22/20 1700 101.2 kg (223 lb) Musculoskeletal System: normal gait and balance and ambulates independently Mental Status Exam: ?? Appearance: appearing stated age, no acute distress, ?? Behavior: calm and cooperative; fair eye contact ?? Speech: normal rate and volume ?? Language: malagasy, fluent ?? Mood: coping ?? Affect: full, mood-congruent ?? Thought Process: linear, logical ?? Associations: intact ?? Thought Content: No SI. No paranoia/delusions ?? Perception: Denies auditory or visual hallucinations ?? Orientation: person, place, time, and situation ?? Attention/Concentration: normal/normal ?? Cognition: appropriate ?? Memory: recent memory intact ?? Fund of Knowledge: appropriate ?? Insight: fair ?? Judgment: fair [place] Suicide Risk Scale - Initial Assessment: Initial Suicide Screening Wish to be : In the last 30 days, have you wished you were or wished you could go to sleepand not wake up?: No Suicidal Thoughts: Have you had any actual thoughts of killing yourself?: Yes Suicidal Thoughts with Method (without Specific Plan or Intent to Act): Have you been thinking about how you might do this?: Yes Suicidal Intent (without Specific Plan): Have you had these thoughts and had some intention of acting on them?: No Suicidal Intent with Specific Plan: Have you started to work out or worked out the details of how to kill yourself? Do you intend to carry out this plan?: No Suicide Behavior Question: Have you ever done anything, started to do anything, or prepared to do anything to end your life?: No [place] Suicide Risk Scale - Daily Assessment: (most recent): Suicide Daily Screening Suicidal Thoughts: Since you were last asked, have you had any actual thoughts of killing yourself?: No Suicide Behavior Question: Since you were last asked have you done anything, started to do anything, or prepared to do anything to end your life?: No Current Medications: Scheduled: ??? lidocaine 1 patch Transdermal Q24H And ??? lidocaine 1 patch Transdermal Q24H ??? lidocaine 1 patch Transdermal Q24H And ??? lidocaine 1 patch Transdermal Q24H ??? zolpidem 5 mg Oral Nightly ? ? vitamin 27 & [id number] 1 tablet Oral Daily ??? FLUoxetine 20 mg Oral Daily PRN: calcium carbonate, acetaminophen, psyllium Labs: Psychiatry Labs Preg: No results found for: HCGQUAL, HCGQUANT Heme: Lab Results Component Value Date WBC 11.7 (H) 09/25/2020 HGB 10.8 (L) 09/25/2020 HCT 33.3 (L) 09/25/2020 PLATELET 267 09/25/2020 MCV 92.2 09/25/2020 NEUTROABS 8.44 (H) 09/25/2020 No results found for: HA1C, SEDRATE Chem: Lab Results Component Value Date NA 135 09/25/2020 K 3.9 09/25/2020 CL 102 09/25/2020 CO2 24 09/25/2020 BUN 6 (L) 09/25/2020 GLUCOSE 74 09/25/2020 Lab Results Component Value Date CALCIUM 9.0 09/25/2020 LFTs: No results found for: ALT, AST, GGT, ALKPHOS, BILITOT, AMMONIA Coags: No results found for: PTT, PT, INR Thyroid: No results found for: TSH, N2QANUA, TT4 Lipids and HgbA1C: No results found for: CHLPL, HDL, CHOLHDL, LDLCHOL, LDLDIRECT, TRIG No results found for: HA1C Vit Lvls: No results found for: [id number], SFOLATE UA: No results found for: GLUCOSEU, KETONESUA, PROTEINUADIP, BLOODUADIP, LEUKOESTERUA, NITRATEUA, WBCUA (May not represent most recent UA results. See eD-H labs for more details.) Tox: No results found for: ETHANOL, ACTMNPHEN, SALICYLATE, LEAD No results found for: UDAUSCREEN Rx Lvls: No results found for: LITHIUM, CARBAMAZEPIN, VALPROATE, LAMOTRIGINE, CLOZAPINE Assessment: (including Suicide Risk Assessment) Nicole Bowles is a 30 y.o. female admitted on 09/22/2020 for worsening depressive symptoms and passive suicidal ideation without intent or plan in the context of recent separation from her and financial stressors.. 09/26/2020: pt making clear progress in mood. No si today. Tolerating tx. Will expect dc tomorrow with transition to bridge clinic. Pleuritic chest pain: resolved with conservative mgt of musculoskeletal pain. No further w/u for now. Appreciate medicine consult/rec's Current Suicide Assessment: Low relative to patient's baseline given improvement in symptoms, future orientation. Compared to the general inpatient psychiatric population pt's risk is low. Risk upon discharge at this time is low given above criteria. Risk mitigated by inpatient hospitalization, q 15 min nursing checks, and medication management. Diagnosis: Major depressive disorder, recurrent episode Plan: #Major depressive disorder, recurrent ?? Continue Prozac 20 mg daily. Instructed patient that this dose may need to increase as she nearsher third trimester as increase in plasma volume can result in lower volumes of fluoxetine in her system ?? Provided patient with handout from [facility] women's mental health website on Prozac in and breast-feeding ?? Scheduled Ambien 5 mg nightly ?? Need to connect with outpatient therapy. # ?? Continue multivitamin with folate ?? Tylenol for lower back pain ?? Warm packs for lower back pain #Chest Pain - no further w/u # Disposition: - After stabilization, patient expected to return home #PRNS: Sleep: None Anxiety: None Pain: Acetaminophen Agitation: None Outpatient Care: Provider Name Date Contacted By Treatment Team Current Mental Health Prescriber none Current Therapist none PCP Garry Toribio, DO Patient Instruction/Education Provided: Patient provided verbal instructions during rounds regarding the treatment plan. I have reviewed and agree with the multidisciplinary treatment plan. I certify that the patient requires inpatient care for psychiatric treatment for safety, stabilization, and any other therapeutic intervention that could conceivably improve the patient's condition, including medication management, group psychotherapy, establishing adequate outpatient care, and/or diagnostic study. Signed By: Zack Zavala MD 09/26/2020 * Ember Martinez [facility] - 09/26/2020 11:06 AM EST Inpatient Daily Group Note Group: Goals Attendance: Present Behavior: Quiet and Attentive Therapeutic Work Observed: Minimal Mood: Stable and Calm Notes: Outlined group expectations of: not being able to attend group late in addition to not beingable to leave group once there. Group room protocol was discussed: no food, no leaving for the bathroom and water only. Also reminded patients of the twice daily room checks (once per shift) and the rationale for doing so. Group ended with daily reading; Love Dandeledenilson. Patient's goals are: Call family to set up discharge ride for tomorrow. JACINTO Thomason 09/26/2020 Inpatient Daily Group Note Group: ACT - opening up. Unhooking/defusion. Passengers on the bus video shown. The three N's of defusion introduced (notice, name and neutralize). Leaves on a stream practice completed. Attendance: Present Behavior: Quiet and Attentive Therapeutic Work Observed: Minimal Mood: Stable and Calm Notes: Hesitated to lift her arms during the I can't lift my arms exercise Showing ow hard it is for her thought snot to control her behaviors. JACINTO Thomason 09/26/2020 Inpatient Daily Group Note Group: ACT - opening up. Acceptance of emotions. The three A's of acceptance were introduced (axknowledge, allow and accommodate). Struggle switch video was shown. Acceptance of emotions practice wascompleted. Attendance: Present Behavior: Expressive and Attentive Therapeutic Work Observed: Moderate Mood: Stable and Calm Notes: More engaged than in previous groups. Able to identify that she is not acceptance of internal discomfort. JACINTO Thomason 09/26/2020 * Jennifer Rosenbaum RN - 09/26/2020 9:05 AM EST Patient Demographics Name Patient ID Nicole Mckinney [id number] Gender Identity: Female Date: [birth year] (30 yrs) Address Phone Email [address] [facility] [id number] (M) [phone] (H) [email or web address] [facility] Occupation Emp Status -- -- Not Employed Reg Status PCP Verified Garry Toribio DO [phone] Marital Status Jewish Alias -- ??NICOLE RIVAS Emergency Contact 1 [address] rivas (Father) [phone] (M) Active Insurance as of 09/22/2020 Primary Coverage Payor Plan Insurance Group Employer/Plan Group [employer]UE [employer] OOS BCBS NATIONAL OOS PPO [id number] Payor Plan Address Payor Plan Phone Number Payor Plan Fax Number Effective Dates [address] 05/24/2019 - None Entered [facility] [address] Subscriber Name Subscriber Date Member ID AMOL BOWLES 12/09/1975 [id number] Coverages for Encounter F/O-Payor/Plan Subscriber Eff From Eff To Verification Status 1-BLUE CROSS BLUE SHIELD O*/BCBS NATIONAL OOS PPO AMOL BOWLES 05/24/2019 E-Verified FPL Status Basic Information Race White Ethnicity Not nor Preferred Language Uruguayan Preferred Pharmacy None Encounter-Level Insurance Billing Restrictions: There are no encounter-level insurance billing restrictions. Routing Report Encounter Routing Info A * Hayes Pepper RN - 09/25/2020 10:59 AM EST Inpatient Daily Group Note Group: Goals Attendance: Late Behavior: Attentive Therapeutic Work Observed: Moderate Mood: Calm Notes: Outlined group expectations of: not being able to attend group late in addition to not beingable to leave group once there. Group room protocol was discussed: no food, no leaving for the bathroom and water only. Also reminded patients of the twice daily room checks (once per shift) and the rationale for doing so. Group ended with daily reading; The Parable of the Cracked Pot. Patient's goals are: Patient was late as she was with the team. States she wanted to work on her wellness plan. JACINTO Thomason 09/25/2020 Inpatient Daily Group Note Group: ACT - being present. Emotional storms were discussed and BAUTISTA was reviewed (acknowledge, comeback into your body/regain a sense of control by focusing on your physical actions and engage with the world)/expand your awareness. Dropping anchor activity completed. Group discussion ensued. Attendance: Present Behavior: Quiet Therapeutic Work Observed: Minimal Mood: Stable and Calm Notes: Engaged in active listening; was able to identify that control strategies and avoidance aren't working. Ember Martinez, JACINTO 09/25/2020 Inpatient Daily Group Note Group: Reducing Vulnerability: staying Strong Attendance: present Behavior: engaged Therapeutic Work Observed: moderate Mood: calm, stable Notes: Pt spoke of her struggle with sleep and that she is taking ambien which has been effective, also stated its difficult to have her children eat healthy because they are so picky so she ends up eating the same things. States she has support from mother and others to have down time when she needs it. Focus on how to reduce the risk of painful emotions controlling you. Utilizing the acronym STRONG :review the importance of SLEEP,TAKING MEDICATIONS PRESCRIBED,Resist drugs and ETOH, ONCE A DAY DOSOMETHING THAT GIVES YOU A FEELING OF BEING IN CONTROL<MASTERING YOUR WORLD,NUTRITION-eat a balanced diet, fuel your body, eliminate refined sugar,GET EXERCISE-at least 20 minutes a day Hayes Pepper RN 09/25/2020 * Zev England RN - 09/25/2020 9:08 AM EST Patient was awake sitting on edge of bed during assessment. Patient wasvalert and oriented x4 and presented with anxiety. Patient reported increased anxiety 5/10 due to a phone call with her spouse about CPS involvement in their divorce proceedings. Patient repotred depression 3/10 decreasing due to social interactions with others on the community. Patient denies suicidal and homicidal ideation during assessment. Patient reported 9/10 non-radiating back pain and attributes it to her current which she is 25 weeks gestation. Patient reports that she is . Patient reports prior untreated post partumdepression with both previous pregnancies and is hopeful that seeking treatment early will assist in controlling future post depression with current . Patient goals for the day were following medication regimen, personal hygiene, attend groups and maintain adequate diet and hydration. Patient presented to the nurses station and reported 7/10 non radiating cramping chest pain. Patient reported the pain increased to 9/10 on inspiration. Patient vitals BP 128/71, pulse 91, oxygen saturation 98%. Care team notified. Patient had EKG as ordered by physician. Provider reviewed lab results with patient and discussed plan. Patient verbalied understanding and di not express any increased anxiety. She reported that she is in a good place right now and is accepting of the new information. Patient was ordered lidoderm patch for sternal pain. Patient was educated and demonstrated understanding of patch. She self applied to midline sternum. Safety maintained throughout shift. [place] Suicide Severity Rating Scale: LOW The following nursing interventions and strategies were implemented to mitigate suicide risk: Restrict to unit, Medication as needed, Identify protective factors, Distract with activities Ongoing safety measures include: Ligature resistant environment of care provided Every 15 minutes safety checks Twice daily environment of care safety sweeps and individual room checks Silverware counted Door to room remains open * Consuelo Escalante MD - 09/25/2020 8:46 AM EST Psychiatry Inpatient - Progress Note 09/25/2020 ID: Nicole Bowles is a 30 y.o. female admitted on 09/22/2020 for worsening suicidal ideation withno intent or plan. Hospital day 3. Diagnosis: Major depressive disorder, recurrent episode Pertinent medical issues being addressed: 25 weeks Interval History: (1,1,4) Per nursing report: Pt slept well. Rates depression 3/10, anxiety 5/10. C/o 9/10 back pain; which is chronic. Her pain goal is 4/10. Per Interview: Pt described her sxs on admission. States that last Friday she went to her dark place and began writing suicide note to her family. She reports chronic SI since her teenage years. She has started suicide notes before, but Friday was the first time she has ever finished a note. Denies SA. Denies self-harm (except in her teenage years). She has never had psychiatric treatment/therapy in the past. Reports that there was no particular stressor on Friday, but it was rather a combination of everything; primarily financial stress and recent/ongoing divorce from her . States that she remains very happy about her ; though she's somewhat worried about December given her severe post- depression w/ previous pregnancies. Also distressed about hearing from her yesterday that CPS may be involved for unspecified reasons. Endorses feeling empty, describing it as feeling like she doesn't deserve things. Pt c/o chest pain after rounds. Onset 10 minutes prior to evaluation. Described as cramping and worse w/ deep inspiration. Mid-sternal. No new back pain. No SOB. No abd pain. Doesn't feel like previous GERD pain. No hx blood clots. No cardiac hx. No family hx (except GA in father age ~50). No auto-immune hx. Review of Systems: (0,1,2) CONST Weight change secondary to CV Pleuritic chest pain, no palpitations RESP no shortness of breath GI no nausea and no vomiting NEURO no headache MS pain Lower back pain secondary to PSYCH See above Other n/a Suicide Risk Factors on Day of Admission: Enduring Factors: chronic mental health problems and limited coping skills Dynamic Factors: depressive symptoms and sense of hopelessness Protective Factors: future orientation Access to Firearms: No Physical Exam: (1,6,9) Vitals (24hr Range): Temp: [36.8 ??C (98.2 ??F)-36.8 ??C (98.3 ??F)] Resp: [18] Heart Rate: [79-91] BP: (128-130)/(69-71) SpO2: [98 %] Patient Vitals for the past 168 hrs: Weight 09/24/20 0927 99 kg (218 lb 3.2 oz) 09/22/20 1700 101.2 kg (223 lb) Musculoskeletal System: normal gait and balance and ambulates independently Mental Status Exam: ?? Appearance: appearing stated age, no acute distress, ?? Behavior: calm and cooperative; fair eye contact ?? Speech: normal rate and volume ?? Language: malagasy, fluent ?? Mood: okay ?? Affect: full, mood-congruent ?? Thought Process: linear, logical ?? Associations: intact ?? Thought Content: No SI. No paranoia/delusions ?? Perception: Denies auditory or visual hallucinations ?? Orientation: person, place, time, and situation ?? Attention/Concentration: normal/normal ?? Cognition: appropriate ?? Memory: recent memory intact ?? Fund of Knowledge: appropriate ?? Insight: fair ?? Judgment: fair [place] Suicide Risk Scale - Initial Assessment: Initial Suicide Screening Wish to be : In the last 30 days, have you wished you were or wished you could go to sleepand not wake up?: No Suicidal Thoughts: Have you had any actual thoughts of killing yourself?: Yes Suicidal Thoughts with Method (without Specific Plan or Intent to Act): Have you been thinking about how you might do this?: Yes Suicidal Intent (without Specific Plan): Have you had these thoughts and had some intention of acting on them?: No Suicidal Intent with Specific Plan: Have you started to work out or worked out the details of how to kill yourself? Do you intend to carry out this plan?: No Suicide Behavior Question: Have you ever done anything, started to do anything, or prepared to do anything to end your life?: No [place] Suicide Risk Scale - Daily Assessment: (most recent): Suicide Daily Screening Suicidal Thoughts: Since you were last asked, have you had any actual thoughts of killing yourself?: No Suicide Behavior Question: Since you were last asked have you done anything, started to do anything, or prepared to do anything to end your life?: No Current Medications: Scheduled: ??? zolpidem 5 mg Oral Nightly ? ? vitamin 27 & [id number] 1 tablet Oral Daily ??? FLUoxetine 20 mg Oral Daily PRN: calcium carbonate, acetaminophen, psyllium Labs: Psychiatry Labs Preg: No results found for: HCGQUAL, HCGQUANT Heme: No results found for: WBC, HGB, HCT, PLATELET, MCV, NEUTROABS No results found for: HA1C, SEDRATE Chem: No results found for: NA, K, CL, CO2, BUN, GLUCOSE, GLUCFASTING No results found for: CALCIUM, MAGNESIUM, PHOS LFTs: No results found for: ALT, AST, GGT, ALKPHOS, BILITOT, AMMONIA Coags: No results found for: PTT, PT, INR Thyroid: No results found for: TSH, [id number], TT4 Lipids and HgbA1C: No results found for: CHLPL, HDL, CHOLHDL, LDLCHOL, LDLDIRECT, TRIG No results found for: HA1C Vit Lvls: No results found for: [id number], SFOLATE UA: No results found for: GLUCOSEU, KETONESUA, PROTEINUADIP, BLOODUADIP, LEUKOESTERUA, NITRATEUA, WBCUA (May not represent most recent UA results. See eD-H labs for more details.) Tox: No results found for: ETHANOL, ACTMNPHEN, SALICYLATE, LEAD No results found for: UDAUSCREEN Rx Lvls: No results found for: LITHIUM, CARBAMAZEPIN, VALPROATE, LAMOTRIGINE, CLOZAPINE Assessment: (including Suicide Risk Assessment) Nicole Bowles is a 30 y.o. female admitted on 09/22/2020 for worsening depressive symptoms and passive suicidal ideation without intent or plan in the context of recent separation from her and financial stressors.. 09/25/2020: Mood improved since admission. Tolerating fluoxetine. Endorses feelings of emptiness, but more c/w low self worth (?d/t MDE) rather than identity instability. Reports stress related to uncertainty around CPS situation. Plans to follow up on this today. Pleuritic chest pain: GERD vs MSK vs pericarditis vs PE. EKG unremarkable. D- dimer, CBC, BMP pending. Low thresh-hold for medicine consult. Trial of Tums for symptom control. Current Suicide Assessment: Low relative to patient's baseline given improvement in symptoms, future orientation. Compared to the general inpatient psychiatric population pt's risk is low. Risk upon discharge at this time is low given above criteria. Risk mitigated by inpatient hospitalization, q 15 min nursing checks, and medication management. Diagnosis: Major depressive disorder, recurrent episode Plan: #Major depressive disorder, recurrent ?? Continue Prozac 20 mg daily. Instructed patient that this dose may need to increase as she nearsher third trimester as increase in plasma volume can result in lower volumes of fluoxetine in her system ?? Provided patient with handout from [facility] women's mental health website on Prozac in and breast-feeding ?? Scheduled Ambien 5 mg nightly ?? Need to connect with outpatient therapy. # ?? Continue multivitamin with folate ?? Tylenol for lower back pain ?? Warm packs for lower back pain #Chest Pain - tums - CBC, BMP, d-dimer, EKG - low thresh-hold for medicine consult # Disposition: - After stabilization, patient expected to return home #PRNS: Sleep: None Anxiety: None Pain: Acetaminophen Agitation: None Outpatient Care: Provider Name Date Contacted By Treatment Team Current Mental Health Prescriber none Current Therapist none PCP Garry Toribio DO Patient Instruction/Education Provided: Patient provided verbal instructions during rounds regarding the treatment plan. I have reviewed and agree with the multidisciplinary treatment plan. I certify that the patient requires inpatient care for psychiatric treatment for safety, stabilization, and any other therapeutic intervention that could conceivably improve the patient's condition, including medication management, group psychotherapy, establishing adequate outpatient care, and/or diagnostic study. Signed By: Consuelo Escalante MD 09/25/2020 Associated attestation - Zack Zavala MD - 09/25/2020 1:32 PM EST I have seen the patient and reviewed the resident's above history and I agree with the details as written. The assessment and plan were formulated in discussion with me and I agree with them as documented. Major issues addressed: Some continued moments of hopelessness and depression. Tolerating start of fluoxetine. Patient reports some modest chest pain. BP 128/71 (BP Location (NBP): Left arm, Patient Position: Sitting) Pulse 91 Temp 36.8 ??C (98.3??F) (Oral) Resp 18 Ht 175.3 cm (5' 9) Wt 99 kg (218 lb 3.2 oz) SpO2 98% BMI 32.22 kg/m?? Plan: Major depressive disorder, recurrent episode Ran risk stratification algorithim for PE (PERC) and found low risk, despite related hypercoaguable state. Will consider med consult if pain continues. Labs and ekg ordered. Continue current med plan for depression. Observe for safety. Engage in milieu therapy. I certify that the patient requires: [X] inpatient care for psychiatric treatment, that could be reasonably expected to improve the patient's condition and/or diagnostic study. Zack Zavala MD * Hayes Pepper RN - 09/24/2020 5:44 PM EST Inpatient Daily Group Note Group: Goals Group Attendance: present Behavior: engaged Therapeutic Work Observed: minimal Mood: stable Notes: goal work on pages 3 and 4 Reviewed daily group schedule,Patients educated regarding social distancing, washing hands frequently, wearing masks when out of their rooms, no bathroom off unit, only beverage allowed in group roomis water.and that you are expected to be able to remain in group the entire time. [place] book handed out to new patient with emphasis on safety plan pages 3 and 4. Patients asked to set an achievable goal for the day related to their treatment and encouraged to ask staff if they needed assistance in achieving that goal. Hayes Pepper RN 09/24/2020 Inpatient Daily Group Note Group: Medication Education Attendance: present Behavior: engaged Therapeutic Work Observed: minimal Mood: calm Notes: followed along with handout, had no questions and didn't add to group discussion Medication education included handout with focus on the 4 neurotransmitters :Dopamine, Serotonin,KEELY and Norephinephrine, what they are and their effects on the body. Review of Each neurotransmitter, what it does in the body and side effects of having too much or too little. Review of mood stabilizers, MAQI's, Tricyclics, SSRI's, Atypical's Neuroleptics,and Sedatives/hypnotics including familiar names, what neurotransmitter they effect , how they effect the neurotransmitter and side effects. Briefly reviewed effects of ETOH on the body as well as Marijuana's effects on the different organs of the body and what withdrawal symptoms are. . Reviewed a pre and post nerve synapse with the focus on SSRI blocking reabsorption of serotonin- and at the synapse the serotonin being released and reabsorbed through a large diagram. Group Discussion followed. Hayes Pepper RN 09/24/2020 Inpatient Daily Group Note Group: Crisis Survival DBT Self Soothing and distraction skills Attendance: present Behavior: engaged Therapeutic Work Observed: minimal Mood: calm Notes: watched DVD, had no questions or anything to add to brief discussion In this DVD patients learn how to master step by step, a set of crisis survival skills that are simple, easy to remember and ready to put into practice. Here we learn how to identify a true crisis, seven ways to keep it from dominating oneself, and ways to treat oneself that help get through it more comfortably Nenita Morrison, PH.D., guides you through the exercises . Hayes Pepper RN 09/24/2020 * Diana Bourne MD - 09/24/2020 2:01 PM EST Psychiatry Inpatient - Progress Note 09/24/2020 ID: Nicole Bowles is a 30 y.o. female admitted on 09/22/2020 for worsening suicidal ideation withno intent or plan. Hospital day 2. Diagnosis: Major depressive disorder, recurrent episode Pertinent medical issues being addressed: 25 weeks Interval History: (1,1,4) Slept 6.75 hours hours Depression = 2 anxiety = 1, Denies SI/HI or paranoia. Endorses lower back pain and is receiving Tylenol for support. Requesting heat packs. Today, pt reports a okay mood. Has been improving since admission and attributes this to groups,medications, time away from stressor. States that the dark thoughts have gone to the back of her head and other things have been brought to the front which is a good thing. Asks reasonable questions about fluoxetine in /breast-feeding. Happy to hear about zolpidem being scheduled. Feels the only thing necessary now before discharge is to have outpatient therapy set up. Denies any side effects to medications. Review of Systems: (0,1,2) CONST Weight change secondary to CV no angina and no palpitations RESP no shortness of breath GI no nausea and no vomiting NEURO no headache MS pain Lower back pain secondary to PSYCH See above Other n/a Suicide Risk Factors on Day of Admission: Enduring Factors: chronic mental health problems and limited coping skills Dynamic Factors: depressive symptoms and sense of hopelessness Protective Factors: future orientation Access to Firearms: No Physical Exam: (1,6,9) Vitals (24hr Range): Temp: [36.7 ??C (98.1 ??F)-36.9 ??C (98.4 ??F)] Resp: [18] Heart Rate: [100-103] BP: (126-141)/(65-67) SpO2: [97 %-100 %] Patient Vitals for the past 168 hrs: Weight 09/24/20 0927 99 kg (218 lb 3.2 oz) 09/22/20 1700 101.2 kg (223 lb) Musculoskeletal System: normal gait and balance and ambulates independently Mental Status Exam: Ambulates independently. No tics or tremors noted. Age appropriate, casually dressed, good eye contact. Visibly . Calm and cooperative. Attentive to the interview. Relates well. Speech reg r/r/prosody. Mood better and affect is mildly constricted and mood congruent. Thoughts are l/l/gd and associations are intact. Denies SI/HI. Denies AH/VH or paranoia. Language without echolalia or clanging. Memory grossly intact. Alert and oriented x 4. I/J: fair [place] Suicide Risk Scale - Initial Assessment: Initial Suicide Screening Wish to be : In the last 30 days, have you wished you were or wished you could go to sleepand not wake up?: No Suicidal Thoughts: Have you had any actual thoughts of killing yourself?: Yes Suicidal Thoughts with Method (without Specific Plan or Intent to Act): Have you been thinking about how you might do this?: Yes Suicidal Intent (without Specific Plan): Have you had these thoughts and had some intention of acting on them?: No Suicidal Intent with Specific Plan: Have you started to work out or worked out the details of how to kill yourself? Do you intend to carry out this plan?: No Suicide Behavior Question: Have you ever done anything, started to do anything, or prepared to do anything to end your life?: No [place] Suicide Risk Scale - Daily Assessment: (most recent): Suicide Daily Screening Suicidal Thoughts: Since you were last asked, have you had any actual thoughts of killing yourself?: No Suicide Behavior Question: Since you were last asked have you done anything, started to do anything, or prepared to do anything to end your life?: No Current Medications: Scheduled: ??? zolpidem 5 mg Oral Nightly ? ? vitamin 27 & [id number] 1 tablet Oral Daily ??? FLUoxetine 20 mg Oral Daily PRN: acetaminophen, psyllium Labs: Psychiatry Labs Preg: No results found for: HCGQUAL, HCGQUANT Heme: No results found for: WBC, HGB, HCT, PLATELET, MCV, NEUTROABS No results found for: HA1C, SEDRATE Chem: No results found for: NA, K, CL, CO2, BUN, GLUCOSE, GLUCFASTING No results found for: CALCIUM, MAGNESIUM, PHOS LFTs: No results found for: ALT, AST, GGT, ALKPHOS, BILITOT, AMMONIA Coags: No results found for: PTT, PT, INR Thyroid: No results found for: TSH, [id number], TT4 Lipids and HgbA1C: No results found for: CHLPL, HDL, CHOLHDL, LDLCHOL, LDLDIRECT, TRIG No results found for: HA1C Vit Lvls: No results found for: [id number], SFOLATE UA: No results found for: GLUCOSEU, KETONESUA, PROTEINUADIP, BLOODUADIP, LEUKOESTERUA, NITRATEUA, WBCUA (May not represent most recent UA results. See eD-H labs for more details.) Tox: No results found for: ETHANOL, ACTMNPHEN, SALICYLATE, LEAD No results found for: UDAUSCREEN Rx Lvls: No results found for: LITHIUM, CARBAMAZEPIN, VALPROATE, LAMOTRIGINE, CLOZAPINE Assessment: (including Suicide Risk Assessment) Nicole Bowles is a 30 y.o. female admitted on 09/22/2020 for worsening depressive symptoms and passive suicidal ideation without intent or plan in the context of recent separation from her and financial stressors.. 09/24/2020: Mood already improving in therapeutic milieu with improved sleep and group participation. Recently started Prozac so I do not think this would be a cause in her mood improvement. Asks appropriate questions about Prozac in /breast-feeding and I provided her with information from women's mental health website on [facility]. At this time, patient would be appropriate for discharge on 09/26/2020 with appropriate outpatient follow-up. Current Suicide Assessment: Low relative to patient's baseline given improvement in symptoms, future orientation. Compared to the general inpatient psychiatric population pt's risk is low. Risk upon discharge at this time is low given above criteria. Risk mitigated by inpatient hospitalization, q 15 min nursing checks, and medication management. Diagnosis: Major depressive disorder, recurrent episode Plan: #Major depressive disorder, recurrent ?? Continue Prozac 20 mg daily. Instructed patient that this dose may need to increase as she nearsher third trimester as increase in plasma volume can result in lower volumes of fluoxetine in her system ?? Provided patient with handout from [facility] women's mental health website on Prozac in and breast-feeding ?? Scheduled Ambien 5 mg nightly ?? Need to connect with outpatient therapy. # ?? Continue multivitamin with folate ?? Tylenol for lower back pain ?? Warm packs for lower back pain # Disposition: - After stabilization, patient expected to return home 09/26/2020. #PRNS: Sleep: None Anxiety: None Pain: Acetaminophen Agitation: None Outpatient Care: Provider Name Date Contacted By Treatment Team Current Mental Health Prescriber none Current Therapist none PCP Garry Toribio, Patient Instruction/Education Provided: Patient provided verbal instructions during rounds regarding the treatment plan. I have reviewed and agree with the multidisciplinary treatment plan. I certify that the patient requires inpatient care for psychiatric treatment for safety, stabilization, and any other therapeutic intervention that could conceivably improve the patient's condition, including medication management, group psychotherapy, establishing adequate outpatient care, and/or diagnostic study. Signed By: Diana Bourne MD 09/24/2020 * Jennifer Lemus RN - 09/24/2020 1:13 PM EST OUTCOME EVALUATION NOTE: [place] Suicide Severity Rating Scale: LOW The following nursing interventions and strategies were implemented to mitigate suicide risk: Full room search conducted, Identify protective factors, Groups for skill building, Therapeutic communication/listening Ongoing safety measures include: Ligature resistant environment of care provided Every 15 minutes safety checks Twice daily environment of care safety sweeps and individual room checks Silverware counted Door to room remains open hsOUTCOME SUMMARY: Pt pleasant & cooperative. She was started on fluoxetine the other day: denying side effects. Educated her on medication side effects and other important factors. Printed and given printed information about the medication. Concerned that breast feeding is contraindicated when taking medication,advised her to speak w/ MD. She slept 6.75 hrs last night, received PRN zolpidem. C/o of lower back pain 07/03 due to being (25 weeks). Has nursing order to use heat pack for back. Given heat pack & Tylenol, pt reported pain remained the same. Ambulated around the unit to help relieve the pain. Denies nausea, given vitamin this AM. States she always has decreased appetite but knows she needs to eat due to being . Rated anxiety 1/10 & depression 2/10 (stated her depression hasn't been this low for years). Denies SI & self-harm thoughts as well as HI, agrees to seek staff if feeling unsafe. Endorsed [place] yesterday but reported none today. Has been going to groups. Protective factor are her two young children. PLAN MOVING FORWARD: - Monitor mood/ behavior on unit -Monitor potential complications of (nausea, contractions, BP, etc.)/ vitamin administration -Meds as ordered -Groups -Meet w/ team INDIVIDUALIZED FALL PREVENTION INTERVENTIONS: Patient-specific fall risk factors per assessment: [current deficits]: Low: , lower back pain Assistance [level of assistance required for transfers and ambulation]: Independent Supervision [direct monitoring required during toileting and ADLs]: ETG Surveillance [continuous indirect monitoring]: q15 min checks, purposeful rounding Patient-specific fall prevention interventions for sensory deficits provided, if applicable: [X] No CPG GOAL OUTCOME EVALUATION: * Tabitha Barraza - 09/23/2020 12:53 PM EDT Inpatient Daily Group Note Group: Goals Attendance: Present Behavior: Conversational Therapeutic Work Observed: Moderate Mood: Calm Notes: Reviewed social distancing on unit and in groups, laundry availability; menu planning, room safety checks and group schedule. Had patients pick their groups for the day. Pt.'s goal for the dayis: Learn the routine of being here. TABITHA BARRAZA 09/23/2020 Pt. participated in the following therapeutic activities: ___ Workshop ___ Walk Tabitha Barraza M.A. Inpatient Daily Group Note Group: Relapse Prevention/safety planning Focus of group was review of the plan and discussion on ways to manage symptoms and triggers. Attendance: Present Behavior: Conversational Therapeutic Work Observed: Moderate Mood: Calm Notes: Pt. shared how she walks away when being triggered and then shares her response later with others. TABITHA BARRAZA 09/23/2020 documented in this encounter H&P Notes * Zack Thomas MD - 09/22/2020 7:17 PM EDT Psychiatry Inpatient Admission - History & Physical Note 09/22/2020 Name: Nicole Bowles Age: 30 y.o. Gender: Female Marital Status: Children: 2 Employment: Self-employed, custom [employer] Residence: [address] [place] [id number] Outpatient Providers: (include location) Current Mental Health Prescriber: None Current Therapist: None PCP: Garry Toribio DO Chief Complaint: 30 y.o. Female [place] [facility] with worsening passive SI in the context of recent social and financial stressors. 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 Of note, she started sertraline 25mg on 09/11, after which she started feeling more depressed, so she stopped on 09/19. She says she has had a certain level of darkness even as a child and had intermittent depression since adolescence. Patient endorses history of cutting as a teen, but has never had self-injurious behavior as an adult. 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 She is under enormous stress and feels like giving up on life. She has images of cutting herself with a knife or driving off a rodolfo, but she says she would never act on those thoughts and has never reached for a knife or gotten into a car with the intent of getting in an accident. No preparatory behavior. She cites her children as strong protective factors against suicide and thinks about what her kids' lives would be like if she weren't here. In her early 20s, she says at times she felt very hyper. There were times when she had trouble falling asleep for 3-4 days and felt exhausted by the end of it. She denies increased level of impulsivity, grandiosity, or increased productivity during these episodes. Mood: ok now, but overwhelmed by coming into a hospital. Sleep: Poor. 3-4 hours nightly, even when away from kids. Interest: Lost interest in crafting. Guilt: Very low Energy: Fatigued Concentration: Poor Appetite: Terrible. Psychomotor: Endorses retardation. Suicide: Endorses passive SI. Has had thoughts about cutting herself or driving off a rodolfo, but never found herself preparing for these things. Psychiatric Review of Systems: Sustained Depressed Mood: Yes Sustained Elevated Mood: No Sustained Irritable Mood: Yes Flashbacks: No Nightmares: No Panic Attacks: Yes, last time on Friday. Couldn't breathe, chest tightness. Chronic Worry: Yes Psychotic Symptoms: No Obsessions/Compulsions: No Violence: No Self Harm: Yes Suicide Risk Factors on Day of Admission: Enduring Factors: chronic mental health problems Dynamic Factors: depressive symptoms and recent separation Protective Factors: engaged in medical and/or mental health care and future orientation Access to Firearms: No Other Psychiatric History: Prior diagnoses: MDD, MARKUS, post- depression Past hospitalization and location: None Suicide attempt details: None Past psychiatric medications: Sertraline 25mg po qd (current med) Substance Use History/Treatment: Tobacco: Quit in 2016. 1.5 ppd x 7 years Alcohol: None since , <1 per week prior to that. No heavy drinking hx. Drugs: None Audit-C Tobacco Use Status (Tob-1) 1. How often do you have a drink containing alcohol? Never - (0 pt) 2. How many standard drinks containing alcohol do you have a typical day? 0 - (0pt) 3. How often do you have six or more drinks on one occasion? Never - (0pt) Total Score: 0 In men, a score of 4 or more is considered positive, optimal for identifying hazardous drinking or active alcohol use disorder. In women, a score of 3 or more is considered positive (same as above). Tobacco Use Status (Tob-1): Have you used tobacco products in the past 30 days? No (If yes, list type of tobacco, volume used and time frame e.g. # of years). Tobacco Use Treatment (Tob-2 - Medication) Would you like a medication to help with tobacco cessation? No Tobacco Use Treatment (Tob-2 - Counseling) Would you like counseling for help with quitting tobacco? No Outpatient Medications: No current facility-administered medications on file prior to encounter. Current Outpatient Medications on File Prior to Encounter Medication Sig Dispense Refill ??? M-Soo Plus 27 mg iron- 1 mg Tablet TAKE ONE TABLET BY MOUTH EVERY DAY ??? aspirin EC 81 mg Tablet, Delayed Release (E.C.) Take 81 mg by mouth daily. Allergies: No Known Allergies Problem List: Patient Active Problem List Diagnosis Code ??? Bicornuate uterus Q51.3 ??? History of delivery Z87.51 ??? History of gestational hypertension Z87.59 ??? History of 2 sections Z98.891 ??? Major depressive disorder, recurrent episode F33.9 Past Medical/Surgical History: Past Medical History: Diagnosis Date ??? Bicornuate uterus ??? Deliberate self-cutting in past ??? Depression ??? History of gestational hypertension ??? History of delivery ??? Obesity ??? Other social stressor during Past Surgical History: Procedure Laterality Date ??? SECTION ??? SECTION ??? DILATION AND CURETTAGE OF UTERUS ??? DILATION AND CURETTAGE OF UTERUS ??? WISDOM TOOTH EXTRACTION Family Medical/Psychiatric History: Mother: BPAD Sister: MARKUS Social History: Recently moved to [place], [place] in 06/2020 from [place], [place] Was self-employed in [employer] business. Now on unemployment in 06/2020. Pending divorce. Some college. Lives with 2 kids. History of Abuse or Neglect: None Legal History: 2014: DUI, was sleeping in parts delivery driver's seat, waiting to sober up. In [place], arrest. 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 Weight 101.2 kg (223 lb) Height 175.3 cm (5' 9) BSA (Calculated - sq m) 2.22 sq meters BMI (Calculated) 32.93 Temp 36.6 ??C (97.9 ??F) Temp src Oral Heart Rate (!) 129 Heart Rate Source NIBP Resp 18 BP 146/87 Patient Position Sitting SpO2 99 % Musculoskeletal System: normal gait and balance and ambulates independently (See also: MSE: Behavior) GEN No acute distress HEAD Normocephalic and Atraumatic EYES PERRL, No scleral icterus, No injection and EOMI ENT Moist mucous membranes NECK No gross thyromegaly CV No edema PULM No increased work of breathing ABD EXTR Moving 4 limbs independently NEURO Grossly nonfocal and CN II-XII grossly intact SKIN No visible rashes Mental Status Exam: ?? Appearance: age appropriate, well dressed, well groomed and ?? Behavior: cooperative with the interview and good eye contact ?? Speech: normal volume, normal rate and normal rhythm ?? Language: fluent in malagasy ?? Mood: ok now, but overwhelmed by coming into a hospital. ?? Affect: bright and full ?? Thought Process: linear and logical ?? Associations: intact ?? Thought Content: denied homicidal ideation and passive suicidal ideation with specific imagery of reaching for a knife or driving off a rodolfo but without intent or preparatory behavior ?? Perception: denied auditory hallucinations denied visual hallucinations not observed responding to internal stimuli ?? Orientation: person, place, time and situation ?? Attention/Concentration: able to sustain focus ?? Cognition: grossly intact by interview ?? Memory: recent and remote memory grossly intact ?? Fund of Knowledge: appropriate for age and level of functioning ?? Insight: good ?? Judgment: good Labs: Psychiatry Labs: Preg: No results found for: HCGQUAL, HCGQUANT Heme: No results found for: WBC, HGB, HCT, PLATELET, MCV, NEUTROABS No results found for: HA1C, SEDRATE Chem: No results found for: NA, K, CL, CO2, BUN, GLUCOSE, GLUCFASTING No results found for: CALCIUM, MAGNESIUM, PHOS LFTs: No results found for: ALT, AST, GGT, ALKPHOS, BILITOT, AMMONIA Coags: No results found for: PTT, PT, INR Thyroid: No results found for: TSH, V4ADBCE, TT4 Lipids and HgbA1C: No results found for: CHLPL, HDL, CHOLHDL, LDLCHOL, LDLDIRECT, TRIG No results found for: HA1C Vit Lvls: No results found for: [id number], SFOLATE UA: No results found for: GLUCOSEU, KETONESUA, PROTEINUADIP, BLOODUADIP, LEUKOESTERUA, NITRATEUA, WBCUA (May not represent most recent UA results. See eD-H labs for more details.) Tox: No results found for: ETHANOL, ACTMNPHEN, SALICYLATE, LEAD No results found for: UDAUSCREEN Rx Lvls: No results found for: LITHIUM, CARBAMAZEPIN, VALPROATE, LAMOTRIGINE, CLOZAPINE Assessment: (including Suicide Risk Assessment) 30 y.o. Female [place] [facility] [place] passive SI in the context of recent social and financial stressors. Patient is undergoing a major depressive episode. The precipitating social and financial stressors are significant, and I believe this depressive episode is a normal psychological response to the circumstances she finds herself in. The 7-day trial of sertraline does not constitute an adequate SSRI trial. However, since she has been off of it for about 3-4 days, I think it's reasonable to try fluoxetine 20mg, because fluoxetine has the most safety evidence in women. Current Suicide Assessment: - Risk status: compared to their general population, at moderate risk given . - Risk state: compared to their baseline, at high risk given recent significant social and financial stressors. Diagnosis: Major depressive disorder, recurrent episode Plan: ?? Admit patient to Psychiatry Care Unit ?? Activity: Restrict to Unit (RTU) # Major depressive episode ?? Fluoxetine 20mg po qd. Consider up-titrating on Friday as tolerated. # 25 week ?? vitamin ?? Heat and cold to lower back/hip prn for musculoskeletal pain # Suicide Risk Mitigation ?? Low ligature environment ?? Q15min observation Preventative/Prophylaxis: ?? Pneumovax and Influenza immunizations to be given as needed. ?? DVT prophylaxis not indicated: patient is at low risk for VTE and is fully ambulatory. ?? If currently a smoker: advised about smoking cessation, will provide cessation material and support. Disposition: Estimated length of time needed for hospital stay is 3-5 days. Proposed post-discharge care will likely include establishing follow up community care prior to discharge. Team will contact outpatient prescriber and therapist for collateral information and continuity of care. Discussed Advanced Directives and Code Status. The patient wishes to be Full Code. I certify that inpatient psychiatric hospital admission is medically necessary and the patient requires inpatient care for psychiatric treatment for safety, stabilization, and any other therapeutic intervention that could conceivably improve the patient???s condition (including medication management, group psychotherapy, establishing adequate outpatient care) and/or diagnostic study. Signed By: Zack Thomas MD 09/22/2020 Associated attestation - Diana Bourne MD - 09/23/2020 11:03 AM EDT I have seen the patient and reviewed the resident's above history and I agree with the details as written. The assessment and plan were formulated in discussion with me and I agree with them as documented. Major issues addressed: Patient is a 30-year-old woman 25 weeks [...] has struggled with depression in the past. BP 119/61 (BP Location (NBP): Left arm, Patient Position: Sitting) Pulse 85 Temp 36.8 ??C (98.2??F) (Oral) Resp 18 Ht 175.3 cm (5' 9) Wt 101.2 kg (223 lb) SpO2 98% BMI 32.93 kg/m?? Plan: Major depressive disorder, recurrent episode Appears to be having a recurrent episode of major depressive disorder. Positive factors are that she sought help before her depression got too bad, wants to live for her children, and does have some hope that things will get better. Patient was started on fluoxetine 20 mg this morning and we discussed side effects of this medication. Would not anticipate any within the first 24 hours so we will follow-up with this tomorrow. Would not meet IEA criteria at this time given that she has no active plans or intent for suicide. Will benefit from medication management, therapeutic milieu, and focusedgroup didactics. I certify that the patient requires: [X] inpatient care for psychiatric treatment, that could be reasonably expected to improve the patient's condition and/or diagnostic study. documented in this encounter Miscellaneous Notes * Plan of Care - Yesenia Johnson RN - 09/27/2020 9:49 AM EST OUTCOME EVALUATION NOTE: OUTCOME SUMMARY: Pt reported some difficulty sleeping d/t anxiety about d/c, 7.25 sleep hours recorded. This AM pt rated depression 1, anxiety 3, pain 4 in low back (medication offered but refused), denies SI/HI or A/VH. RPP photocopied and in pt's chart. Pt is anxious about d/c but is looking forward to seeing her children. Anticipated d/c this afternoon. Eating well, attending groups, compliant with medication therapy. Will continue to monitor for pt safety and help reach d/c goals. [place] Suicide Severity Rating Scale: LOW The following nursing interventions and strategies were implemented to mitigate suicide risk: Assist patient in developing a safe discharge plan, Therapeutic communication/listening, Positive reinforcement Ongoing safety measures include: Ligature resistant environment of care provided Every 15 minutes safety checks Twice daily environment of care safety sweeps and individual room checks Silverware counted Door to room remains open PLAN MOVING FORWARD: D/c planning, medications as ordered, groups as tolerated, transition to outpatient care INDIVIDUALIZED FALL PREVENTION INTERVENTIONS: Patient-specific fall risk factors per assessment: [current deficits]: Hospital environment, medication therapy Assistance [level of assistance required for transfers and ambulation]: Independent Supervision [direct monitoring required during toileting and ADLs]: Escort to groups Surveillance [continuous indirect monitoring]: Q15 minutes Patient-specific fall prevention interventions for sensory deficits provided, if applicable: [X] N/A CPG GOAL OUTCOME EVALUATION: * Plan of Care - Leila Carranza RN - 09/26/2020 10:24 PM EST OUTCOME EVALUATION NOTE: OUTCOME SUMMARY: Behavior: Patient pleasant and cooperative with full affect and appropriate eye contact. AOx4, independent of ADLs and mobility. Social with peers, laughing and joking, watching tv. Patient discharging tomorrow. She reports many anxieties r/t returning home, but states that one more relief/less obstacle is that her children's father will be taking the kids for a few weeks after discharge, so Nicole can get settled and organized back into life before tackling all of the kids' needs. Patient understands that it takes time to get reacclamated and states that she is excited to get appointments set up with psychiatrist/therapist. Rates: Depression 1, Anxiety 5 Denies: SI/HI, AVH and Pain Agrees to seek staff if feeling unsafe with self or others Nutrition: No apparent problem observed or reported at this time. PRNs: None Will continue to monitor. PLAN MOVING FORWARD: Promote healthy coping skills Groups Meet with team Ongoing discharge planning [place] Suicide Severity Rating Scale: LOW Ongoing safety measures include: Ligature resistant environment of care provided Every 15 minutes safety checks Twice daily environment of care safety sweeps and individual room checks Silverware counted Door to room remains open INDIVIDUALIZED FALL PREVENTION INTERVENTIONS: Patient-specific fall risk factors per assessment: [current deficits]: Low: medications Assistance [level of assistance required for transfers and ambulation]: Indep Supervision [direct monitoring required during toileting and ADLs]: Indep Surveillance [continuous indirect monitoring]: 15 min checks, ETG, Environmental Safety Checks * Plan of Care - Yesenia Johnson RN - 09/26/2020 10:29 AM EST OUTCOME EVALUATION NOTE: OUTCOME SUMMARY: Pt reported sleeping well, 7.5 sleep hours recorded. This AM pt denied depression and anxiety, endorsed back and chest pain 2, denies SI/HI or A/VH. VSS and denies SOB, CP, n/v, numbness/tingling. Pleasant and bright affect this AM, engaging in the milieu. Eating well, attending groups and compliant with medication regimen. Anticipated d/c tomorrow. Will continue to monitor for pt safety and helpreach d/c goals. [place] Suicide Severity Rating Scale: LOW The following nursing interventions and strategies were implemented to mitigate suicide risk: Patient to work on Relapse Prevention Plan, Assist patient in developing a safe discharge plan, Therapeutic communication/listening, Positive reinforcement Ongoing safety measures include: Ligature resistant environment of care provided Every 15 minutes safety checks Twice daily environment of care safety sweeps and individual room checks Silverware counted Door to room remains open PLAN MOVING FORWARD: D/c planning, medications as ordered, groups as tolerated INDIVIDUALIZED FALL PREVENTION INTERVENTIONS: Patient-specific fall risk factors per assessment: [current deficits]: D/c planning, medication therapy Assistance [level of assistance required for transfers and ambulation]: independent Supervision [direct monitoring required during toileting and ADLs]: Escort to group Surveillance [continuous indirect monitoring]: Q15 minutes Patient-specific fall prevention interventions for sensory deficits provided, if applicable: [X] N/A CPG GOAL OUTCOME EVALUATION: * Consult Note - Steven Villanueva MD - 09/26/2020 8:46 AM EST Internal Medicine Consult Note Admit date: Hospital day: Service: Primary Attending Consult Attending 09/22/[address] Farzad Kline Reason for Consult: Pleuritic chest pain Active Hospital Problems Diagnosis ??? Major depressive disorder, recurrent episode ??? Major depressive disorder Resolved Hospital Problems Diagnosis Date Resolved ??? Current severe episode of major depressive disorder without psychotic features without prior episode 09/22/2020 ID: Nicole Bowles is a 30 y.o. female with a PMH of MDD, Obesity, self cutting, 25 week admitted to psychiatry for suicidal ideation. Medicine is being consulted for pleuritic chest pain and concern for PE. 24 HR event: -No acute event over nights -Chest Pain has resolved -Feels overall well. Past Medical History Past Medical History: Diagnosis Date ??? Bicornuate uterus ??? Deliberate self-cutting in past ??? Depression ??? History of gestational hypertension ??? History of delivery ??? Obesity ??? Other social stressor during Meds: No current facility-administered medications on file prior to encounter. Current Outpatient Medications on File Prior to Encounter Medication Sig Dispense Refill ??? M-Soo Plus 27 mg iron- 1 mg Tablet TAKE ONE TABLET BY MOUTH EVERY DAY ??? aspirin EC 81 mg Tablet, Delayed Release (E.C.) Take 81 mg by mouth daily. Allergies: No Known Allergies Past Surgical History Past Surgical History: Procedure Laterality Date ??? SECTION ??? SECTION ??? DILATION AND CURETTAGE OF UTERUS ??? DILATION AND CURETTAGE OF UTERUS ??? 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 Stays home with her children. Vitals: Last value Range last 24 hrs Temperature Temp: 36.7 ??C (98.1 ??F) Temp: [36.6 ??C (97.9 ??F)-36.9 ??C (98.4 ??F)] Heart Rate Heart Rate: 82 Heart Rate: [82-99] Blood Pressure BP: 129/60 BP: (124-129)/(60-71) Respiratory Rate Resp: 16 Resp: [16-18] SpO2 SpO2: 100 % SpO2: [97 %-100 %] No intake/output data recorded. Examination: General: Pleasant, alert, appropriate, in NAD. HEENT: EOMI, nonicteric. MMMs Cardiac: Normal S1 and S2, Regular rate and rhythm; No murmurs noted.No tenderness to touch. Respiratory: Nonlabored. Clear to auscultation bilaterally. Abd: + BS; soft, non-tender, gravid abdomen, no masses, no HSM Ext: No edema, cyanosis, clubbing, Radial and distal pedal pulses 2+ bilaterally. No swelling of the calves bilaterally. Neuro: II-XII grossly intact. Alert and orientated, no-focal deficits, sensation intact to crude touch, motor strength 5/5 throughout Skin: No rashs, no lesions, no petechiae Laboratory: Last 3 wbc, hgb, hct plt Recent Labs 09/25/20 1140 WBC 11.7* HGB 10.8* HCT 33.3* PLATELET 267 Last 3 Lytes Recent Labs 09/25/20 1140 NA 135 K 3.9 CL 102 CO2 24 BUN 6* CREATININE 0.60* Last Ca, Mg, Phos Recent Labs 09/25/20 1140 CALCIUM 9.0 D dimer 513 Microbiology: No new Diagnostic Studies: EKG 09/25 Sinus rhythm Assessment: Nicole Bowles is a 30 y.o. female with a PMH of MDD, Obesity, self cutting, 25 week [id number] to psychiatry for suicidal ideation. Medicine is being consulted for pleuritic chest pain and concern for PE. Nicole's pleuritic chest pain has resolved. Likely a component of anxiety +/- Costochondritis. If patient has any episodes of hypoxia, tachycardia or chest pain please contact us. Recommendations: - Encourage breathing exercises - Acetaminophen PRN for pain - 5% lidocaine patch PRN but would avoid unless absolutely necessary as some of it can be absorbed and could cross the placenta. Discussion took place with patient. - Would check Q6H vital signs while awake. - If any development of hypoxia, tachycardia or chest pain , feel free to reach out to medicine to discuss Case was discussed with medicine consult attending, Dr. Reyes. Consult service will continue to follow patient. x Recommendations are above, please page if further consultation required. Steven Villanueva MD Internal Medicine, PGY3 JOESPH Pager # [phone] Associated attestation - Aurelio Reyes MD - 10/09/2020 11:19 PM EST Attending staff follow-up documentation Please see (Resident name) note for details of the 24hr events, current issues and clinical course. I have discussed, reviewed and agree with the documented history , physical findings, Assessment and Plan of care. I have examined the patient myself on and reviewed all labs and studies personally. Additions to the history, physical, assessment and plan include the following: See assessment and plan below * Plan of Care - Myah Grimm RN - 09/26/2020 5:39 AM EST OUTCOME EVALUATION NOTE: OUTCOME SUMMARY: Nicole endorsed 3/10 anxiety and 2/10 depression. Denied SI/SH/HI and contracted for safety, agreeing to seek staff support if feeling unsafe. Denied AVH. Endorsed 7/10 LBP and 2/10 pain to chest. Polite and cooperative and displayed pleasant and bright affect. Visible in the milieu, socialized with peers, interacted appropriately with staff and peers, and compliant with medication regimen. Patient stated Lidocaine patch on chest was helpful in lowering pain. This senior copywriter requested MD order forLidocaine patch for LBP, which patient received at . Patient spoke with earlier today andsaid conversation went well. Patient stated she did not speak with PCM about Child Protective Services and was encouraged to do so today. Patient stated she misses her children and is looking forwardto discharge, which she hopes will be Friday. [place] Suicide Severity Rating Scale: LOW The following nursing interventions and strategies were implemented to mitigate suicide risk: Full room search conducted, Medication as needed, Identify protective factors, Prompted deep breathing / relaxation techniques, Distract with activities, Reviewed Values with patient, Scheduled checkin with nursing, Therapeutic communication/listening, Positive reinforcement Ongoing safety measures include: Ligature resistant environment of care provided Every 15 minutes safety checks Twice daily environment of care safety sweeps and individual room checks Silverware counted Door to room remains open PLAN MOVING FORWARD: Foster positive and optimal patient outcomes through the following nursing actions and interventions: provide medication education and encourage compliance with medication regimen as ordered by MD; prompt group attendance; encourage use of identified coping skills; monitor mood and behavior; provide therapeutic listening; encourage verbalization of feelings and provide validation; assist in short-term and long-term goal setting; and provide emotional support as needed. INDIVIDUALIZED FALL PREVENTION INTERVENTIONS: Patient-specific fall risk factors per assessment: [current deficits]: None Assistance [level of assistance required for transfers and ambulation]: Independent Supervision [direct monitoring required during toileting and ADLs]: Independent Surveillance [continuous indirect monitoring]: 15 minute safety checks maintained throughout shift Patient-specific fall prevention interventions for sensory deficits provided, if applicable: [X] N/A Fall prevention program maintained, non-slip footwear required when ambulating, muscle strengthening facilitated, bed in low position, lighting adjusted, 15 minute safety checks maintained throughoutthe shift. CPG GOAL OUTCOME EVALUATION: Continue to: provide therapeutic listening, validate feelings, promote self- care, encourage active participation in treatment through group attendance, offer emotional support, encourage self-advocacy, promote self-efficacy, assist patient in the development of a viable crisis/safety plan they can implement when feeling unsafe, provide medication education and encourage compliance with medicationregimen as ordered by . * Consult Note - Sumeet Simpson Cami - 09/25/2020 1:07 PM EST Internal Medicine Initial Consult Note Admit date: Hospital day: Service: Primary Attending Consult Attending 09/22/[address] Farzad Kline Reason for Consult: Pleuritic chest pain Active Hospital Problems Diagnosis ??? Major depressive disorder, recurrent episode ??? Major depressive disorder Resolved Hospital Problems Diagnosis Date Resolved ??? Current severe episode of major depressive disorder without psychotic features without prior episode 09/22/2020 HPI: Nicole Bowles is a 30 y.o. female with a PMH of MDD, Obesity, self cutting, 25 week [id number] admitted to psychiatry for suicidal ideation. Medicine is being consulted for pleuritic chest pain and concern for PE. Patient states that she was in her usual state of health up until this morning. This morning, she had the sudden onset of pleuritic chest pain. She states that the pain is central in location, and feels as if it is a tightness. She also feels as though if there is something sitting on her chest. She has never had anything like this before. The pain is made worse by taking a deep inspiration. The pain is a 7 out of 10 at rest, and a 9 out of 10 with deep inspiration. She denies any cough, shortness of breath, palpitations. She has had no fevers or chills. Denies reflux or improvement/worsening with change in position. She denies any periods of immobility in the preceding days and weeks. She has had no history of clotting or previous blood clots. No clotting history in the family. She did smoke for 6 years, but quit in 2016. She denies any heavy lifting or MSKinjury. . First complicated by gestational hypertension, second by placental abruption and subsequent clot development. Both children are healthy and well. ROS (positive in bold): General fevers, chills, night sweats, weight loss/gain HEENT changes in vision or hearing Card chest pain, palpitations Pulm SOB, cough, KEENE GI abd pain, nausea, vomiting, diarrhea, constipation, reflux dysuria, urinary frequency, urgency MS: arthritis, arthralgia, muscle aches Neuro weakness, numbness, tingling, BARBOZA Skin rash, skin lesions Psych depression, anxiety, difficulty sleeping Past Medical History Past Medical History: Diagnosis Date ??? Bicornuate uterus ??? Deliberate self-cutting in past ??? Depression ??? History of gestational hypertension ??? History of delivery ??? Obesity ??? Other social stressor during Meds: No current facility-administered medications on file prior to encounter. Current Outpatient Medications on File Prior to Encounter Medication Sig Dispense Refill ??? M-Soo Plus 27 mg iron- 1 mg Tablet TAKE ONE TABLET BY MOUTH EVERY DAY ??? aspirin EC 81 mg Tablet, Delayed Release (E.C.) Take 81 mg by mouth daily. Allergies: No Known Allergies Past Surgical History Past Surgical History: Procedure Laterality Date ??? SECTION ??? SECTION ??? DILATION AND CURETTAGE OF UTERUS ??? DILATION AND CURETTAGE OF UTERUS ??? 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 Stays home with her children. Vitals: Last value Range last 24 hrs Temperature Temp: 36.8 ??C (98.3 ??F) Temp: [36.8 ??C (98.2 ??F)-36.8 ??C (98.3 ??F)] Heart Rate Heart Rate: 91 Heart Rate: [79-91] Blood Pressure BP: 128/71 BP: (128-130)/(69-71) Respiratory Rate Resp: 18 Resp: [18] SpO2 SpO2: 98 % SpO2: [98 %] No intake/output data recorded. Examination: General: Pleasant, alert, appropriate, in NAD. HEENT: EOMI, nonicteric. MMMs Cardiac: Normal S1 and S2, Regular rate and rhythm; No murmurs noted. Mid sternum tender to palpation. Respiratory: Nonlabored. Clear to auscultation bilaterally, though effort limited due to pain; No wheezes or crackles Abd: + BS; soft, non-tender, gravid abdomen, no masses, no HSM Ext: No edema, cyanosis, clubbing, Radial and distal pedal pulses 2+ bilaterally. No swelling of the calves bilaterally. Neuro: II-XII grossly intact. Alert and orientated, no-focal deficits, sensation intact to crude touch, motor strength 5/5 throughout Skin: No rashs, no lesions, no petechiae Laboratory: Last 3 wbc, hgb, hct plt Recent Labs 09/25/20 1140 WBC 11.7* HGB 10.8* HCT 33.3* PLATELET 267 Last 3 Lytes Recent Labs 09/25/20 1140 NA 135 K 3.9 CL 102 CO2 24 BUN 6* CREATININE 0.60* Last Ca, Mg, Phos Recent Labs 09/25/20 1140 CALCIUM 9.0 D dimer 513 Microbiology: No new Diagnostic Studies: EKG 09/25 Sinus rhythm Assessment: Nicole Bowles is a 30 y.o. female with a PMH of MDD, Obesity, self cutting, 25 week [id number] to psychiatry for suicidal ideation. Medicine is being consulted for pleuritic chest pain and concern for PE. Nicole's pleuritic chest pain is certainly concerning for PE. However, the fact that it is reproducible is reassuring to me, and her D-dimer is ever so slightly elevated. I am not sure if this can be attributed to her . It is also possible that anxiety is contributing to this pain, or that she has some MSK process such as costochondritis. She denies any reflux or any improvement with Tums. Would favor watchful waiting with trial of acetaminophen and breathing exercises. If the pain gets any worse, could consider further evaluation with CT PE. However, my index of suspicion is relatively low right now, and would like to avoid excess radiation if we can. Recommendations: - Encourage breathing exercises - Acetaminophen PRN for pain - Could consider 5% lidocaine patch for four hour trial as well. - Benefit of CT PE likely outweighed by risks as it stands now - Would check Q4H vital signs while awake. - If any development of hypoxia or tachycardia, feel free to reach out to medicine to discuss Case was discussed with medicine consult attending, Dr. Reyes. X Consult service will continue to follow patient. Recommendations are above, please page if further consultation required. Sumeet Simpson MD Internal Medicine, PGY3 JOESPH Pager # [phone] Associated attestation - Aurelio Reyes MD - 09/25/2020 5:45 PM EST Attending Staff New Consult Documentation We have been asked to see this patient in consultation by Dr. Zavala Please see Dr. Simpson note for details of the patient history of presentation and data. I have discussed, reviewed and agree with the documented history with ROS, social and family history, medication list, physical findings, labs/studies, Assessment and Plan of care. I have examined the patient myself and reviewed all labs and studies personally. Additions to the history, physical, assessment and plan include the following: Issues: Shortness of breath Discomfort does not cause outward distress, she percieves chest wall tender over costo-chondral junctions, nominally elevated D Dimer, unremarkable EKG. Chostochondritis vs anxiety Recommendations Consider diagnostic/therapeutic 5% lidoderm over chest wall Breathing exersizes for coping and more complex anxiety management as per psych Q4 vitals, hold off CT PE/ DVT duplxex unless tachycardic over 110, tachypnic or desat under 95% * Initial Assessments - Jennifer Rosenbaum RN - 09/25/2020 9:22 AM EST Initial Patient Assessment Jennifer Rosenbaum RN reviewed record and discussed patient with Care Team on 09/25/2020. Introduced/reviewed role; services accepted. Nicole Bowles is a 30 y.o. year old female (1990) presenting to [address] [place] [address] for treatment with Major depressive disorder [F32.9] Anticipated Length Of Stay (If known): unknown Patient/Caregiver Goals of Treatment: Safety and stabilization Source of Information: Pt supplied/corraborated, H&P REASON for HOSPITALIZATION: 30 y.o. Female [facility] with worsening passive SI in the context of recent social and financial stressors. Medical/Behavioral Health History: does not have any pertinent problems on file. Current treaters: Current Mental Health Prescriber: None Current Therapist: None PCP: Garry Toribio DO Hospitalizations Within the Past 30 Days: No PERTINENT INFO FROM H & P: 30 y.o. Female presents to [facility] with worsening passive SI in the context of recent social and financial stressors. ?? Patient is undergoing a major depressive episode. The precipitating social and financial stressors are significant, and I believe this depressive episode is a normal psychological response to the circumstances she finds herself in. ?? The 7-day trial of sertraline does not constitute an adequate SSRI trial. However, since she has been off of it for about 3-4 days, I think it's reasonable to try fluoxetine 20mg, because fluoxetine has the most safety evidence in women. ADVANCE DIRECTIVES: Information provided as needed HEALTH /PRESCRIPTION COVERAGE: Current Effective Coverage: Payor/Plan Subscr Sex Relation Sub. Ins. ID Effective Group Num 1. BLUE CROSS BL* AMOL BOWLES 12/09/1975 Male [id number] [birth year] [id number] [address] Prescription Coverage: Confirmed Preferred Pharmacy: No Pharmacies Listed Other: (Ex. Acquisition Professional Care, Worker???s Comp., Automobile Liability, etc.) HOME ENVIRONMENT / SOCIAL & FAMILY SUPPORTS/COMMUNITY RESOURCES:(living situation, family constellation, Caregivers, current use & knowledge of community resources, etc.) Extended Emergency Contact Information Primary Emergency Contact: Loi rivas Mobile Relation: Father PRIMARY CARE PHYSICIAN: 1. Garry Toribio DO [address] [facility] [id number] MENTAL HEALTH PRESCRIBER: None Current Decision-Making Capacity: (Level of Alertness/Orientation, dementia/ cognitive deficit, if patient is a minor - assess parent/guardian, etc.) Able to consent to or refuse care. CURRENT PATIENT & FAMILY EDUCATION, COPING NEEDS: (Address patient/family satisfaction with care to date, understanding of current status and plan of care, need for family meeting, need for cone winder, etc.) Safe effective coping skills and medication education Functional Status Prior to Admission: Able to perform ADLs/IADLs independently Current Functional Ability: (use of assistive devices, working with PT/OT, etc.) Able to perform ADLs/IADLs independently Anticipated Barriers to Discharge/Special Considerations: (Financial/underinsured, behavioral, lackof needed support/access to community resources, current substance abuse, homelessness, etc.) None anticipated Potential Needs for Transition of Care: Home Health: No Any special transportation needed at D/C to [address] [place] [id number]? No Rehab/SNF: No New community resources referrals needed? Mental health services Other: PLAN: PCM will continue to monitor progress, follow for continuity of care and assist with transition of care planning while hospitalized. Jennifer Rosenbaum RN PAGER: * Plan of Care - Jennifer Rosenbaum RN - 09/25/2020 9:21 AM EST MULTIDISCIPLINARY TREATMENT PLAN Todays Date: 09/25/2020 Patient: Nicole Bowles Admit Date: 09/22/2020 6:48 PM CODE STATUS:Attempt Cardiopulmonary Resuscitation - Inpatient Initial date of care plan. __09/25/20_ Update Q7 days Working Diagnosis: Major depressive disorder [F32.9] PATIENT'S REASON FOR HOSPITALIZATION (his or her own words) Last Friday - going to my dark place - decided to write suicide notes STRENGTHS STRESSORS TARGET SYMPTOMS 1. Open to treatment Chronic mental health problems Suicidal thoughts/depression 2. Future orientation Going through a divorce Insomnia/fatigue 3. Financial problems/CPS No appetite/poor concentration GOALS 1 Stabilize target symptoms and improve understanding of illness 2 Work with Patient Pad Assembler to create and implement aftercare plan 3 Medication optimization 4 Groups for education, skill building and support 5 Complete Relapse Plan prior to discharge PHYSICIAN INTERVENTIONS ACTIVITY INTERVENTIONS 1. Continued psychiatric evaluation 1. Wellness Recovery Planning 2. Med management/Brief therapy 2. Therapeutic groups & activities 3. Diagnostic/Medical testing/Labs 3. Patient and family education NURSING INTERVENTIONS PCC & SW INTERVENTIONS 1. Purposeful rounding 1. Facilitate communication with family 2. See Nursing care plan 2. Facilitate communication with providers 3. Wellness Recovery planning 3. Assist with discharge planning The multidisciplinary team reviewed falls prevention plan with me. I have worked with my treatment team and agree with the plan above. PATIENT SIGNATURE DATE: 09/25/20 Nicole Bowles PRINT NAME: SIGNATURE: DATE: RESIDENT PHYSICIAN 09/25/20 ATTENDING PHYSICIAN Zack Zavala MD 09/25/20 NURSING 09/25/20 PATIENT LOCOMOTIVE INSPECTOR Jennifer Rosenbaum, BSN, RN-BC 09/25/20 THERAPIST 09/25/20 PROGRAM MANAGER ENVIRONMENTAL PLANNING 09/25/20 * Plan of Care - Myah Grimm RN - 09/25/2020 12:10 AM EST OUTCOME EVALUATION NOTE: OUTCOME SUMMARY: Nicole endorsed 4/10 anxiety and 2/10 depression. Denied SI/SH/HI and contracted for safety, agreeing to seek staff support if feeling unsafe. Denied AVH. Endorsed 8/10 pain for which she received Tylenol 650 mg PO PRN as well as a heat pack (see Nursing Communication). Polite and cooperative and displayed pleasant and bright affect. Visible in the milieu, socialized with peers, interacted appropriately with staff and peers, and compliant with medication regimen. Patient stated her anxiety would be a 1 except for my 's manager technical support receiving an email from Child Protective Services. Patient encouraged to follow up with PCM regarding this. [place] Suicide Severity Rating Scale: LOW The following nursing interventions and strategies were implemented to mitigate suicide risk: Full room search conducted, Medication as needed, Identify protective factors, Prompted deep breathing / relaxation techniques, Distract with activities, Reviewed Values with patient, Scheduled checkin with nursing, Therapeutic communication/listening, Positive reinforcement Ongoing safety measures include: Ligature resistant environment of care provided Every 15 minutes safety checks Twice daily environment of care safety sweeps and individual room checks Silverware counted Door to room remains open PLAN MOVING FORWARD: Foster positive and optimal patient outcomes through the following nursing actions and interventions: provide medication education and encourage compliance with medication regimen as ordered by MD; prompt group attendance; encourage use of identified coping skills; monitor mood and behavior; provide therapeutic listening; encourage verbalization of feelings and provide validation; assist in short-term and long-term goal setting; and provide emotional support as needed. INDIVIDUALIZED FALL PREVENTION INTERVENTIONS: Patient-specific fall risk factors per assessment: [current deficits]: None Assistance [level of assistance required for transfers and ambulation]: Independent Supervision [direct monitoring required during toileting and ADLs]: Independent Surveillance [continuous indirect monitoring]: 15 minute safety checks maintained throughout shift Patient-specific fall prevention interventions for sensory deficits provided, if applicable: [X] N/A Fall prevention program maintained, non-slip footwear required when ambulating, muscle strengthening facilitated, bed in low position, lighting adjusted, 15 minute safety checks maintained throughoutthe shift. CPG GOAL OUTCOME EVALUATION: Continue to: provide therapeutic listening, validate feelings, promote self- care, encourage active participation in treatment through group attendance, offer emotional support, encourage self-advocacy, promote self-efficacy, assist patient in the development of a viable crisis/safety plan they can implement when feeling unsafe, provide medication education and encourage compliance with medicationregimen as ordered by MD. * Plan of Care - Fern Varela RN - 09/23/2020 5:24 PM EDT Problem: Coping, Compromised Individual (Adult,Obstetrics,Pediatric) Goal: Identify Related Risk Factors and Signs and Symptoms Related risk factors and signs and symptoms are identified upon initiation of Human Response Clinical Practice Guideline (CPG) Outcome: Ongoing (Interventions Implemented as Appropriate) 09/23/20 8418 Coping, Compromised Individual Coping, Compromised Individual: Related Risk Factors coping skills ineffective;situational/maturational crisis;support inadequate Signs and Symptoms (Compromised Individual Coping) coping mechanisms inappropriate;decision-making/problem-solving deficit;eating habits change;sleep disturbance OUTCOME EVALUATION NOTE: OUTCOME SUMMARY: Pt isolative on the unit, eating dinner by herself, spending time on the phone and writing, she is pleasant on approach, mood and affect flat,no SI/HI, presently states she does not feel depressed oranxious. [place] Suicide Severity Rating Scale: LOW The following nursing interventions and strategies were implemented to mitigate suicide risk: Medication as needed, Identify protective factors, Distract with activities, Groups for skill building, Reviewed Values with patient, Scheduled check in with nursing, Therapeutic communication/listening, Positive reinforcement Ongoing safety measures include: Ligature resistant environment of care provided Every 15 minutes safety checks Twice daily environment of care safety sweeps and individual room checks Silverware counted Door to room remains open PLAN MOVING FORWARD: Groups, monitor response to Prozac INDIVIDUALIZED FALL PREVENTION INTERVENTIONS: Patient-specific fall risk factors per assessment: [current deficits]: independent Assistance [level of assistance required for transfers and ambulation]: Up ad vahe, low fall risk Supervision [direct monitoring required during toileting and ADLs]: n/a Surveillance [continuous indirect monitoring]: Esc to groups, purposeful rounding, q 15 min safety checks Patient-specific fall prevention interventions for sensory deficits provided, if applicable: n/a CPG GOAL OUTCOME EVALUATION: * Consult Note - Alisha Ray RN - 09/23/2020 9:58 AM EDT OUTCOME EVALUATION NOTE: OUTCOME SUMMARY: Pt reported slept well with Ambien (newly prescribed.) Pt described mood as I'm ok. Pt reports: Depression: 6/10 Anxiety: 4/10 (10=worst). Affect is full. Eye contact good. Pt denies AH/VH. No other psychotic symptoms reported or observed. Pt denies suicidal or homicidal ideation. Pt denies thoughts of self harm. Pt willing to contact staff if having thoughts of hurting self or anyone else rather than acting on such thoughts. Independent ADLs; well groomed. Pt has been easy to engage and cooperative. Isolative. Pt's appetite is good. Pt denies any problems moving her bowels. Pt denies physical pain. Pt adhering to prescribed medication plan. PLAN MOVING FORWARD: Continue medications. Encourage therapeutic groups and therapeutic milieu. INDIVIDUALIZED FALL PREVENTION INTERVENTIONS: Patient-specific fall risk factors per assessment [current deficits]: Secondary Diagnosis Assistance [level of assistance required for transfers and ambulation]: None Supervision [direct monitoring required during toileting and ADLs]: n/a Surveillance [continuous indirect monitoring]: 15 minute checks and continuous monitoring of unit by staff Patient-specific fall prevention interventions for sensory deficits provided if applicable: N/A CPG GOAL OUTCOME EVALUATION: [place] Suicide Severity Rating Scale: LOW The following nursing interventions and strategies were implemented to mitigate suicide risk: Groups for skill building, Therapeutic communication/listening, Positive reinforcement Ongoing safety measures include: Ligature resistant environment of care provided Every 15 minutes safety checks Twice daily environment of care safety sweeps and individual room checks Silverware counted Door to room remains open * Plan of Care - Rand Lee RN - 09/22/2020 9:50 PM EDT OUTCOME EVALUATION NOTE: OUTCOME SUMMARY: Nicole admitted from [facility] who is 25 weeks with her 3rd child. She has a 1 year as well as a 2 year old at home. She is going through a divorce, moved in June to be near her parents, Is under financial pressure and feels unsupported. ( Father does not believe in mental health or illness.) She suffers from long standing insomnia and Feels exhausted. She reports that she lost 15 pounds in 2nd trimester due to stress. Also had serious PP depression x 2, that was not treated. She has a hx of cutting x 5 years - from grade 8 until senior year of . (She had a serious cut that required multiple stitches in her left forearm) Also reported punching lockers and a cement wall in HS. She stated that she has no friends here b/c she recently moved. Her main Support is her mother mom Who helps her out but she feels guilty asking her as she works 2 jobs. Gregory said she recently started on zoloft and it made her feel worse, she started having passive Suicidal thoughts of driving off a rodolfo or cutting herself - she had no plan or intent. She says her chilldren and are protective factors. She was given a tour of the unit and settled into room 223. [place] Suicide Severity Rating Scale: LOW The following nursing interventions and strategies were implemented to mitigate suicide risk: Structured days RTU tonight Sleep hygienne moniter her appetite- push Good healthy food choices Medication stabilization freq check ins with staff Ongoing safety measures include: Ligature resistant environment of care provided Every 15 minutes safety checks Twice daily environment of care safety sweeps and individual room checks Silverware counted Door to room remains open PLAN MOVING FORWARD: See above INDIVIDUALIZED FALL PREVENTION INTERVENTIONS: Patient-specific fall risk factors per assessment: [current deficits]: LFR Assistance [level of assistance required for transfers and ambulation]: n/a Supervision [direct monitoring required during toileting and ADLs]: n/a Surveillance [continuous indirect monitoring]: 15 min Patient-specific fall prevention interventions for sensory deficits provided, if applicable: n/a CPG GOAL OUTCOME EVALUATION: documented in this encounter Plan of Treatment Not on file documented as of this encounter Procedures Procedure Name Priority Date/Time Associated Diagnosis Comments HEMOGRAM Routine 09/25/2020 11:40 AM EST DIFFERENTIAL, AUTOMATED Routine 09/25/2020 11:40 AM EST HC D-DIMER, QUANTITATIVE Routine 09/25/2020 11:40 AM EST HC CBC,PLT & AUTO DIFF Routine 09/25/2020 11:40 AM EST BASIC METABOLIC PANEL Routine 09/25/2020 11:40 AM EST EKG 12-LEAD Routine 09/25/2020 11:11 AM EST Chest pain on breathing documented in this encounter Results * (ABNORMAL) Differential, Automated (09/25/2020 11:40 AM EST) Neutrophil % 72.2 % [facility] Neutrophil Absolute 8.44(H) 1.70 - 6.10 x10(3)/mc L [facility] Lymph % 17.0 % [facility] Lymphocytes Abs 2.0 0.9 - 3.2 x10(3)/mc L [facility] Monocyte % 9.2 % [facility] Monocyte Abs 1.1(H) 0.3 - 0.9 x10(3)/mc L [facility] Eos % 0.5 % [facility] Eosinophils Abs 0.1 0.0 - 0.4 x10(3)/mc L [facility] Basophil % 0.3 % [facility] Baso Absolute 0.0 0.0 - 0.1 x10(3)/mc L [facility] Immature Gran % 0.80 % [facility] Comment: Immature granulocytes(IG's)percentage and absolute count will include metamyelocytes, myelocytes, and promyelocytes. Blood smears from CBCs yielding IG's will be scanned manually for concordance. If this scan disagrees with the automated IG or if promyelocytes are noted, a manual differential will be performed. Immature Gran Absolute 0.09(H) 0.00 - 0.04 x10(3)/mc L [facility] Blood specimen (specimen) 09/25/2020 11:40 AM EST 09/25/2020 11:58 AM EST Narrative Resulting Agency Comment Spec In Lab Consuelo Escalante MD HEMATOLOGY ORDERABLE S [facility] [place] [address] * (ABNORMAL) Hemogram (09/25/2020 11:40 AM EST) White Blood Cell 11.7(H) 4.0 - 9.5 x10(3)/ L [facility] Red Blood Cell 3.61(L) 4.00 - 5.21 x10(6)/mc L [facility] Hemoglobin 10.8(L) 11.7 - 15.5 gm/dL [facility] Hematocrit 33.3(L) 35.7 - 45.8 % [facility] Mean Cell Volume 92.2 82.6 - 94.4 fL [facility] Mean Cell Hemoglobin 29.9 27.1 - 32.0 pg [facility] Mean Cell Hemoglobin Concentration 32.4 31.7 - 35.0 gm/dL [facility] Platelet 267 145 - 357 x10(3)/mc L [facility] RDW Standard Deviation 49.2(H) 37.0 - 46.0 fL [facility] RDW coefficient of variation 14.6(H) 11.5 - 14.1 % [facility] Mean Platelet Volume 10.5 7.6 - 12.9 fL [facility] NRBC% auto 0.0 % [facility] NRBC Absolute 0.000 0.000 - 0.000 x10(3)/mc L [facility] Blood specimen (specimen) 09/25/2020 11:40 AM EST 09/25/2020 11:58 AM EST Narrative Resulting Agency Comment Spec In Lab Consuelo Escalante MD HEMATOLOGY ORDERABLE S [facility] [place] [address] * (ABNORMAL) Basic Metabolic Panel (non-fasting) (09/25/2020 11:40 AM EST) Glucose 74 65 - 199 mg/dL [facility] Comment:Diabetes: >=200 mg/d L plus symptoms Blood Urea Nitrogen 6(L) 8 - 18 mg/dL [facility] Creatinine 0.60(L) 0.70 - 1.20 mg/dL [facility] Sodium 135 135 - 145 mmol/L [facility] Potassium 3.9 3.5 - 5.0 mmol/L [facility] Comment: Please note: ??Patients with WBC >100,000 may have falsely elevated Potassium levels. ??For accurate Potassium quantification in these patients send serum separator tube (gold top) for subsequent determinations. ??Contact the Clinical Chemistry Laboratory if there are any questions. Chloride 102 98 - 107 mmol/L [facility] Carbon Dioxide 24 22 - 31 mmol/L [facility] Anion Gap 9 5 - 15 mmol/L [facility] Calcium 9.0 8.5 - 10.5 mg/dL [facility] Est Glomerular Filtration Rate 123 >=60 mL/min/1. 73 m?? [facility] Comment: The eGFR was calculated using the CKD-EPI equation. As with all creatinine based estimates of kidney function, eGFR values calculated with the CKD-EPI equation are not accurate in patients with acute kidney failure, extremes of body mass or the acutely ill. [email or web address] eGFR 143 >=60 mL/min/1. 73 m?? [facility] Comment: The eGFR was calculated using the CKD-EPI equation. As with all creatinine based estimates of kidney function, eGFR values calculated with the CKD-EPI equation are not accurate in patients with acute kidney failure, extremes of body mass or the acutely ill. [email or web address] Blood specimen (specimen) 09/25/2020 11:40 AM EST 09/25/2020 11:58 AM EST Narrative Resulting Agency Comment Spec In Lab Zack Zavala MD CHEMISTRY ORDERABLE S Performing Organization Address [facility] [place] Phone Number [facility] [place] [address] * (ABNORMAL) D-Dimer, Quantitative (09/25/2020 11:40 AM EST) D-Dimer 513(H) 0 - 500 FEU ng/ml [facility] Comment: The D-Dimer assay is used to aid in the diagnosis of deep vein thrombosis and pulmonary embolism. A normal D-Dimer result (less than 500 FEU ng/ml) has a negative predictive value of approximately 95% for the exclusion of acute PE and DVT when there is low to moderate pretest probability. To use age adjusted cutoff: Age x 10 ng/ml. Blood specimen (specimen) 09/25/2020 11:40 AM EST 09/25/2020 11:58 AM EST Narrative Resulting Agency Comment Spec In Lab Zack Zavala MD HEMATOLOGY ORDERABL ES Performing Organization Address [facility] Co de Phone Number [facility] [place] [address] * EKG 12 Lead (09/25/2020 11:11 AM EST) Ventricular rate 80 BPM MUSE SYSTEM Atrial Rate 80 BPM MUSE SYSTEM P-R Interval 158 ms MUSE SYSTEM QRS Duration 80 ms MUSE SYSTEM Q-T Interval 378 ms MUSE SYSTEM QTC Calculated (Bezet) 435 ms MUSE SYSTEM Calculated P [place] 24 degrees MUSE SYSTEM Calculated R [place] 65 degrees MUSE SYSTEM Calculated T [place] 35 degrees MUSE SYSTEM INTERPRETATION Sinus rhythm with Premature supraventricular complexes Otherwise normal ECG No previous ECGs available Confirmed by Beata Schwartz ([email or web address]) on 09/25/2020 2:13:41 PM MUSE SYSTEM 09/25/2020 11:1 1 AM EST 09/25/2020 2:13 PM EST Zack Zavala MD ECG ORDERABLES MUSE SYSTEM documented in this encounter Visit Diagnoses Diagnosis Major depressive disorder, recurrent episode- Primary Major depressive disorder, recurrent episode, unspecified Chest pain on breathing Painful respiration Current severe episode of major depressive disorder without psychotic features without prior episode Major depressive disorder Major depressive disorder, single episode, unspecified documented in this encounter Admitting Diagnoses Diagnosis Major depressive disorder Major depressive disorder, single episode, unspecified documented in this encounter Administered Medications Inactive Administered Medications - up to 3 most recent administrations Medication Order MAR Action Action Date Dose Rate Site acetaminophen (Tylenol) tablet 650 mg 650 mg, Oral, EVERY 8 HOURS PRN, Starting on 09/24/20 at 1013, Until 09/27/20 at 1827, Pain, Maximum dose of acetaminophen is 4000 mg from all sources in 24 hours. When ordered for pain, acetaminophen should be given even when other ordered pain medications are indicated. , Routine Given 09/25/2020 7:13 AM EST 650 mg Given 09/24/2020 10:38 PM EST 650 mg Given 09/24/2020 10:31 AM EST 650 mg calcium carbonate (Tums) chewable tablet 1,000 mg 1,000 mg, Oral, 3 TIMES DAILY PRN, Starting on 09/25/20 at 1057, Until Fri09/27/20 at 1827, Heartburn, chest pain, Routine Given 09/25/2020 11:15 AM EST 1,000 mg FLUoxetine (PROzac) capsule 20 mg 20 mg, Oral, DAILY, First dose on 09/23/20 at 0900, Until Discontinued, Routine Given 09/27/2020 9:07 AM EST 20 mg Given 09/26/2020 8:46 AM EST 20 mg Given 09/25/2020 9:06 AM EST 20 mg lidocaine (LIDODERM) 5 % patch 1 patch 1 patch, Transdermal, EVERY 24 HOURS, First dose on Fri09/25/20 at 1700, Until Discontinued, Apply patch(es) for 12 hours, and then remove for 12 hours. Apply to chest., Routine Patch Applied 09/26/2020 5:47 PM EST 1 patch 07- Back Lower (Left) Patch Applied 09/25/2020 5:42 PM EST 1 patch 12- Chest (Right) lidocaine (LIDODERM) 5 % patch 1 patch 1 patch, Transdermal, EVERY 24 HOURS, First dose on Fri09/25/20 at 2115, Until Discontinued, Apply patch(es) for 12 hours, and then remove for 12 hours. Apply to low back, Routine Patch Applied 09/25/2020 9:41 PM EST 1 patch 07- Back Lower (Left) lidocaine (LIDODERM) 5 %(700 mg/patch) Patch Removal Transdermal, EVERY 24 HOURS, First dose on Fri09/26/20 at 0415, Until Discontinued, Remove lidocaine 5 %(700 mg/patch) patch lidocaine (LIDODERM) 5 %(700 mg/patch) Patch Removal Transdermal, EVERY 24 HOURS, First dose on Fri09/26/20 at 0830, Until Discontinued, Remove lidocaine 5 %(700 mg/patch) patch vitamin 27 & [id number] 60 mg iron-1 mg per tablet Tab 1 tablet 1 tablet, Oral, DAILY, First dose on Fri09/23/20 at 0900, Until Discontinued, Routine Given 09/27/2020 9:07 AM EST 1 tablet Given 09/26/2020 7:48 AM EST 1 tablet Given 09/25/2020 9:06 AM EST 1 tablet zolpidem (Ambien) tablet 5 mg 5 mg, Oral, ONCE, 1 dose, On Fri09/22/20 at 2300, Routine Given 09/22/2020 10:24 PM EDT 5 mg zolpidem (Ambien) tablet 5 mg 5 mg, Oral, ONCE, 1 dose, On Fri09/24/20 at 0000, Routine Given 09/23/2020 11:19 PM EDT 5 mg zolpidem (Ambien) tablet 5 mg 5 mg, Oral, NIGHTLY, First dose (after last reorder) on 09/24/20 at 2100, Until Discontinued, Routine Given 09/26/2020 10:13 PM EST 5 mg Given 09/25/2020 9:41 PM EST 5 mg Given 09/24/2020 10:37 PM EST 5 mg documented in this encounter Active and Recently Administered Medications Times are shown in EST. Scheduled Medication Order 09/25/2020 09/26/2020 09/27/2020 FLUoxetine (PROzac) capsule 20 mg 20 mg, Oral, DAILY, First dose on 09/23/20 at 0900, Until Discontinued, Routine 0906 (Given - Provider: Zev England RN) 0846 (Given - Provider: Yesenia Johnson RN) 0907 (Given - Provider: Yesenia Johnson RN) lidocaine (LIDODERM) 5 % patch 1 patch(Linked Group 1) 1 patch, Transdermal, EVERY 24 HOURS, First dose on Fri09/25/20 at 1700, Until Discontinued, Apply patch(es) for 12 hours, and then remove for 12 hours. Apply to chest., Routine 1741 (Patch Applied - Provider: Zev England RN) 1746 (Patch Applied - Provider: Yesenia Johnson RN) lidocaine (LIDODERM) 5 % patch 1 patch(Linked Group 2) 1 patch, Transdermal, EVERY 24 HOURS, First dose on Fri09/25/20 at 2115, Until Discontinued, Apply patch(es) for 12 hours, and then remove for 12 hours. Apply to low back, Routine 2140 (Patch Applied - Provider: Myah Grimm RN) 2114 (Not Given - Provider: Leila Carranza RN - Reason: Patient/family refused - Comment: no pain on chest area, patch for back was applied at 174) lidocaine (LIDODERM) 5 %(700 mg/patch) Patch Removal(Linked Group 1) Transdermal, EVERY 24 HOURS, First dose on Fri09/26/20 at 0415, Until Discontinued, Remove lidocaine 5 %(700 mg/patch) patch 0730 (Patch Not Removed (add comment) - Provider: Yesenia Johnson RN - Comment: not found on assessment) 0730 (Patch Not Removed (add comment) - Provider: Yesenia Johnson RN - Comment: patch not found on assessment) lidocaine (LIDODERM) 5 %(700 mg/patch) Patch Removal(Linked Group 2) Transdermal, EVERY 24 HOURS, First dose on Fri09/26/20 at 0830, Until Discontinued, Remove lidocaine 5 %(700 mg/patch) patch 0830 (Patch Removed - Provider: Yesenia Johnson RN) 0830 (Patch Not Removed (add comment) - Provider: Yesenia Johnson RN - Comment: patch not found on assessment) vitamin 27 & [id number] 60 mg iron-1 mg per tablet Tab 1 tablet 1 tablet, Oral, DAILY, First dose on 09/23/20 at 0900, Until Discontinued, Routine 0906 (Given - Provider: Zev England RN) 0748 (Given - Provider: Yesenia Johnson RN)0900 (Canceled Entry - Provider: Yesenia Johnson RN - Reason: See comment - Comment: given earlier per pt preference) 0907 (Given - Provider: Yesenia Johnson RN) zolpidem (Ambien) tablet 5 mg 5 mg, Oral, NIGHTLY, First dose (after last reorder) on 09/24/20 at 2100, Until Discontinued, Routine 214 (Given - Provider: Myah Grimm, TRUDI) 2213 (Given - Provider: Leila Carranza RN) PRN Medication Order 09/25/2020 09/26/2020 09/27/2020 acetaminophen (Tylenol) tablet 650 mg 650 mg, Oral, EVERY 8 HOURS PRN, Starting on 09/24/20 at 1013, Until Fri09/27/20 at 1827, Pain, Maximum dose of acetaminophen is 4000 mg from all sources in 24 hours. When ordered for pain, acetaminophen should be given even when other ordered pain medications are indicated. , Routine 0713 (Given - Provider: Justine Gutierrez RN - Comment: back and hip) calcium carbonate (Tums) chewable tablet 1,000 mg 1,000 mg, Oral, 3 TIMES DAILY PRN, Starting on 09/25/20 at 1057, Until Fri09/27/20 at 1827, Heartburn, chest pain, Routine 1115 (Given - Provider: Zev England RN) psyllium (Aspartame) 1 packet 1 packet, Oral, DAILY PRN, Starting on Fri09/22/20 at 2135, Until Fri09/27/20 at 1827, constipation, Routine Linked Groups Order Group 1: lidocaine (LIDODERM) 5 % patch 1 patchJump to med 1 patch, Transdermal, EVERY 24 HOURS, First dose on Fri09/25/20 at 1700, Until Discontinued, Apply patch(es) for 12 hours, and then remove for 12 hours. Apply to chest., Routine And lidocaine (LIDODERM) 5 %(700 mg/patch) Patch RemovalJump to med Transdermal, EVERY 24 HOURS, First dose on Fri09/26/20 at 0415, Until Discontinued, Remove lidocaine 5 %(700 mg/patch) patch Group 2: lidocaine (LIDODERM) 5 % patch 1 patchJump to med 1 patch, Transdermal, EVERY 24 HOURS, First dose on Fri09/25/20 at 2115, Until Discontinued, Apply patch(es) for 12 hours, and then remove for 12 hours. Apply to low back, Routine And lidocaine (LIDODERM) 5 %(700 mg/patch) Patch RemovalJump to med Transdermal, EVERY 24 HOURS, First dose on Fri09/26/20 at 0830, Until Discontinued, Remove lidocaine 5 %(700 mg/patch) patch documented in this encounter Care Teams Stock Speculator Relationship Specialty Start Date End Date Garry Toribio DO [address] [place] [id number] PCP - General Family Medicine 08/17/20 documented as of this encounter
--- OUTSIDE RECORDS SUMMARY | 2024-10-22 21:05 | XMS_ITS | Encounter Summary ---
Author Organization [facility] Address [facility] [place] [address] Care Team Providers Care Dough Puncher Name Role Phone Garry Toribio DO Primary Care Provider [phone] Reason for Visit * Reason Onset Date Comments Prior Authorization 09/25/2020 APPROVED FOR [employer] [place] Encounter Details Date Type Department Care Team (Late st Contact Info) Description 09/25/2020 [place] [id number] Sri Diamond Prior Authorization (APPROVED FOR BC[employer] [place]) Social History Tobacco Use Types Packs/Day Years [...] Telephone Encounter - Sri Diamond - 09/25/2020 8:52 AM EST ??? Insurance Verified: [employer]BS [place] ??? Insurance Effective To/From Dates: 05/24/19-CURRENT ??? Third Constitution Party Vendor: NA ??? Authorization number: [id number] ??? Validity Dates: 09/22/20-10/06/20 ??? Date of Service: 09/05/20 ??? CPT/Description: EMERGENCY IPI PSYCH ??? ICD-10/Description: Major depressive disorder [F32.9] ??? Ordering Provider: Zack Zavala ??? Patient Class: IPI ??? How many days approved: 15 ??? Call Reference Number: LUIS Connell 09/25/20 8:46AM EST ??? Spoke With: LUIS Connell ? Financially Cleared: YES ??? PSC Insurance Contact Information ??? PSC Insurance Name: MARINA, REVIEWER ??? Insurance [id number] ??? Insurance Fax Number: NA ??? Additional Clinical Required Y/N?: NA ??? Patient Class Change Requirements: CALL FOR OBSVO ??? Notes - Include any additional documentation if provided: NEXT REVIEW DATE 10/06/20 - IF PT DISCHARGES BEFORE THEN, PLEASE CALL AND LET THEM KNOW. documented in this encounter Plan of Treatment Not on file documented as of this encounter Visit Diagnoses Not on filedocumented in this encounter Care Teams Dough Puncher Relationship Specialty Start Date End Date Garry Toribio DO [address] [place] [address] PCP - General Family Medicine 08/17/20 documented as of this encounter
--- OUTSIDE RECORDS SUMMARY | 2024-10-22 21:05 | XMS_ITS | Encounter Summary ---
Author Organization [facility] Address [facility] [place] [address] Care Team Providers Care Field Support Rep Name Role Phone Garry Toribio DO Primary Care Provider [phone] Reason for Visit * Reason Comments Ultrasound * Consultation (Routine) - Specialty Diagnoses / Procedures Referred By Contdelbert t Referred To Contact Obstetrics and Gynecology Diagnoses Encounter for supervision of normal , unspecified, unspecified trimester Personal history of other complications of , childbirth and the puerperium MATERNAL CONDITION- PREVIOUS C SECTION X2, BICORNUATE UTERUS Procedures TARGETED MORPHOLOGY ULTRASOUND MATERNAL MEDICINE CONSULT María Sepulveda, NICHOLAS [address] [place] [address] [address] [address] [facility] [address] [place] [address] Referral ID Status Reason Start Date Expiration Date V isits Requested Visits Authorized [id number] Consult, Test [facility] PCP Updated and/or Approved 08/15/2020 08/15/2021 6 6 Encounter Details Date Type Department Care Team (Late st Contact Info) Description 08/23/2020 4:00 PM EDT Procedure visit Obstetrics [place] [address] Olaf Barker MD [facility] [place]STET[place] [address] History of 2 sections Social History Tobacco Use Types Packs/Day Years [...] Sign Reading Time Taken Comments Blood Pressure 128/70 08/23/2020 4:25 PM EDT Pulse - - Temperature - - Respiratory Rate - - Oxygen Saturation - - Inhaled Oxygen Concentration - - Weight 101 kg (222 lb 9.6 oz) 08/23/2020 4:25 PM EDT Height - - Body Mass Index - - documented in this encounter Progress Notes * Olaf Barker MD - 08/23/2020 4:00 PM EDT Diagnosis/Maternal Medicine Consult Note Nicole Menendez is a 30 y.o. year old female who is at 21w0d gestation. She is seen in consultation at the request of María Sepulveda CNM for evaluation of bicornuate uterus, 2 prior deliveries, and history of . She was seen today for maternal- medicine consultation and ultrasound evaluation. Review of Systems Constitutional:feels well Movement: normal Contractions: none Leaking: None Bleeding: None Patient Active Problem List Diagnosis Date Noted ??? History of 2 sections 08/23/2020 ??? Bicornuate uterus ??? History of delivery ??? History of gestational hypertension Past Medical History: Diagnosis Date ??? Bicornuate uterus ??? Deliberate self-cutting in past ??? Depression ??? History of gestational hypertension ??? History of delivery ??? Obesity ??? Other social stressor during Past Surgical History: Procedure Laterality Date ??? SECTION ??? SECTION ??? DILATION AND CURETTAGE OF UTERUS ??? DILATION AND CURETTAGE OF UTERUS ??? WISDOM TOOTH EXTRACTION Family History Problem Relation Age of Onset ??? Hypertension Father ??? Coronary Artery Disease Father ??? Seizure Disorder Father ??? Depression Mother Social History Occupational History ??? Not on file Tobacco Use ??? Smoking status: Former Smoker Substance and Sexual Activity ??? Alcohol use: Not Currently ??? Drug use: Not on file ??? Sexual activity: Not on file OB History 6 Para 2 Term 1 1 AB 3 Living 2 SAB 1 TAB 2 Ectopic Multiple Live Births 2 # Outc Date GA Lbr Sergio/2nd Wgt Sex Del Anes PTL Lv 1 SAB 2 TAB 3 TAB 4 Term 2018 39w0d 3.232 kg (7 lb 2 oz) C-S scar Living Complications: Breech delivery 5 2019 36w0d 2.07 kg (4 lb 9 oz) OTHER Living Complications: Abruptio Placenta, labor, ROM (rupture of membranes), premature 6 Current Current Outpatient Medications Medication Sig Dispense Refill ??? M- Plus 27 mg iron- 1 mg Tablet TAKE ONE TABLET BY MOUTH EVERY DAY ??? aspirin EC 81 mg Tablet, Delayed Release (E.C.) Take 81 mg by mouth daily. No current facility-administered medications for this visit. No Known Allergies Ultrasound Date: 08/23/2020 Amniotic fluid volume normal Presentation cephalic Placenta posterior Growth appropriate for gestational age anatomy unremarkable Cervix 4.5cm Physical Exam BP 128/70 Wt 101 kg (222 lb 9.6 oz) General: alert, well appearing, in no apparent distress HEENT: normocephalic, atraumatic Abdomen: Soft, nontender Neurologic:alert, oriented, normal speech, no focal findings or movement disorder noted Psychiatric: Affect is Appropriate. Assessment and Recommendations: 30 y.o. year old female at 21w0d weeks gestation, referred for counseling regarding bicornuate uterus, 2 prior deliveries, and history of . I spent 40 minutes in face toface time with the patient of which 95% was in direct counseling. We reviewed the ultrasound findings and limitations of ultrasound in detecting anomalies and aneuploidy. The anatomy, placenta, and fluid appeared unremarkable. The transvaginal cervix length measured 4.5cm. We reviewed her history in detail. She has had a prior after PPROM/PTL. She is at ~30% risk for recurrent PTB. Given the recent practice change, I do not recommend Jania in this setting as the benefit in reducing the risk for recurrent has not been consistent. Her cervix length is reassuring at this time. Mullerian anomalies increase the risk for complications including , malpresentation, and growth abnormalities. Her last baby may have had growth issues. I recommend a follow up ultrasound at 32 week to reassess the growth. She has a history of gestational hypertension. I recommended starting a bASA 120mg QD through 38 weeks toreduce the risk for preeclampsia. She indicated that she desires a trial of labor. I counseled on the risk and benefits of trial of labor and vaginal after . She plans at least 1 futurepregnancy. The risk of TOLAC include uterine rupture ~ 5-7 in 1000 cases and unplanned . The risk of repeat includes scarring and abnormal placentation including placenta previa and placenta accreta spectrum disorders. Her calculator predicts 66% chance of success withl . I counseled that 2 prior may increase her risk for uterine rupture and decrease her successrate but that it does not contraindicate a trial of labor. I gave her written information to reviewand consider. If she desires here at [facility], then her follow up ultrasound should be done here at 32 weeks. We can continue the discussion of at that visit. I appreciate the opportunity to be involved in this patients care, and am available if further questions should arise. OLAF BARKER MD 08/24/2020 Cc: María Sepulveda, [address] [place] [address] , with copy of ultrasound report documented in this encounter Plan of Treatment Not on file documented as of this encounter Visit Diagnoses Diagnosis History of 2 sections documented in this encounter Care Teams Field Support Rep Relationship Specialty Start Date End Date Garry Toribio DO [facility] [place] [address] PCP - General Family Medicine 08/17/20 documented as of this encounter
[2024-10-22 21:48] LABS: Hemoglobin A1C 5.6 % (<5.7)
[2024-10-25 12:11] LABS: HIV-1/2 Ag & Ab Screen Negative (Negative)
[2024-10-25 12:41] LABS: Hepatitis C Ab w Rflx HCV PCR Negative (Negative)
== END 2024-10-22 21:04 | disposition home or self-care (01) ==
LOC: NCHCN 21:03
PROVIDERS: PCP Nurse Practitioner Family; Visit Provider Nurse Practitioner Family
DX: Z00.00 Encounter for general adult medical examination without abnormal findings (principal); Z01.419 Encounter for gynecological examination (general) (routine) without abnormal findings; Z11.51 Encounter for screening for human papillomavirus (HPV)
CPT/HCPCS: 86803; 87389; 88142; 83036; 84443; 87624

== ENCOUNTER 2024-12-07 10:00 | Day surgery (SDC) | payer MEDICAID, SELFPAY ==
[2024-12-07 10:16] VITALS: BP 134/85; PULSE 93; RESP 18; TEMP 36.5; O2SAT 98
[2024-12-07] MEDS: Lactated Ringers 1,000 ML 80 ML IV (10:31)
--- NOTE | 2024-12-07 10:33 | W.ANESPRE ---
General Info Date of Service Date Performed: 12/07/24 Height: 5 ft 8 in Weight: 98 kg Body Mass Index (BMI): 32.8 Surgical Procedure: Operation Date: 12/07/24 11:25 Proposed Procedure Side Surgeon p Colonoscopy Usman Keen MD s Hemorrhoid Banding Usman Keen MD Actual Procedure Side Surgeon p Colonoscopy Not Applicable Usman Keen MD s Hemorrhoid Banding Not Applicable Usman Keen MD Pre-Op Diagnosis Post-Op Diagnosis Hemorrhoids Meds Allergies and Home Medications Allergies Allergy/AdvReac Type Severity Reaction Status Date / Time No Known Allergies Allergy Verified 12/07/24 10:09 Home Medication ?Medication ?Instructions ?Recorded breast pump #1 ea 12/31/20 ibuprofen 600 mg tablet 600 mg PO Q6H PRN pain #30 tabs 12/31/20 levonorgestrel 21 mcg/24 hr (up to 1 device intrauterine ONCE 02/08/21 8 years) 52 mg intrauterine device (Mirena) acetylcysteine 600 mg capsule (NAC) 1,200 mg PO BID 10/27/24 bisacodyl 5 mg tablet,delayed 5 mg PO ONCE Colonoscopy Bowel 10/27/24 release Prep #4 tabs clonidine HCl 0.1 mg tablet 0.1 mg PO QHS 10/27/24 folic acid 1 mg tablet 1 mg PO DAILY 10/27/24 lisdexamfetamine 20 mg capsule 20 mg PO DAILY 10/27/24 (Vyvanse) magnesium oxide 400 mg PO DAILY 10/27/24 polyethylene glycol 3350 17 238 g PO ONCE #238 grams 10/27/24 gram/dose oral powder levomefolate calcium 15 mg tablet 15 mg PO DAILY 10/29/24 aripiprazole 2 mg tablet (Abilify) 2 mg PO HS 12/03/24 Current Visit Medications: Current Medications Generic Name Dose Route Start Last Admin Trade Name Freq PRN Reason Stop Dose Admin Ringer's Solution 1,000 mls @ 80 mls/hr 12/07/24 06:00 12/07/24 10:31 IV 12/07/24 23:59 80 mls/hr INFUSION CALIXTO Administration IV Miscellaneous Supplies 1 each 12/07/24 06:00 Iv Access IV 12/07/24 23:59 DIRECTED CALIXTO Sodium Chloride 0 ml 12/07/24 06:00 Normal Saline Flush 10 Ml Syr IV 12/07/24 23:59 PRN PRN Sodium Chloride 0 ml 12/07/24 06:00 Normal Saline 10 Ml Vial IJ 12/07/24 23:59 DIRECTED PRN Sterile Water 0 ml 12/07/24 06:00 Water,Injection,Sterile 10 Ml Vial IJ 12/07/24 23:59 DIRECTED PRN PFSH Active Problems Active Problems: Problem Status Onset Code Housing or economic circumstances Acute Z59.9 IUD surveillance Acute Z30.431 Major depressive disorder, recurrent episode Acute F33.9 Need for financial support Acute Z59.9 Yeast dermatitis Acute B37.2 Contraception Acute Z30.9 Postoperative pain Acute G89.18 Status post repeat low transverse section Acute Z98.891 Breech presentation Acute O32.1XX0 Epigastric pain Acute R10.13 Insomnia Acute G47.00 Elevated glucose tolerance test Acute R73.09 Suicidal ideation Resolved R45.851 First trimester Acute Z34.91 Anxiety Chronic F41.9 BMI 32.0-32.9,adult Acute Z68.32 History of gestational hypertension Acute Z87.59 Acute Z34.90 Medical History Medical History Carpal tunnel syndrome Candidiasis of skin Mixed anxiety and depressive disorder Obesity Hemorrhoids Snoring History of tobacco abuse Deliberate self-cutting as a teen Tobacco Smoking/Tobacco Use Status: Former Tobacco Use Second hand exposure: No Alcohol Alcohol Intake: current Alcohol intake frequency: holidays/special occasions only Substance Use Substance use: Never Substance use type: does not use Prental History History 6 Para 3 Hx # Term Pregnancies 2 Multiple births Hx # Pregnancies 1 Ectopic pregnancies AB induced 2 Hx Number of Living Children 3 AB spontaneous 1 Past Pregnancies Del. Date GA/Weeks # Preg Succ Route Wgt Sex Labor Lgth Anesthesia Location [facility] 01/22/10 09/24/10 07/25/16 06/19/18 39 No [address] [facility] 09/18/19 36 No Male [facility] 12/28/20 39 No 3231.846 g Female [facility] Delivery Date: 01/22/10 Last Updated by: María Sepulveda CNM TAB no complications Delivery Date: 09/24/10 Last Updated by: María Sepulveda CNM TAB 16 weeks no complications Delivery Date: 07/25/16 Last Updated by: María Sepulveda CNM SAB, d and C, 8 weeks 5 days Delivery Date: 06/19/18 Last Updated by: María Sepulveda CNM Unsuccessful version. for breech, gestational hypertension. No proteinuria. Delivery Date: 09/18/19 Last Updated by: María Sepulveda CNM placental abruption, vanishing twin Vital Signs and Lab Results Vital Signs Most Recent Vital Signs in EMR: Most Recent Vital Signs Temp Pulse Resp BP Pulse Ox 36.5 C 93 H 18 134/85 98 12/07/24 10:16 12/07/24 10:16 12/07/24 10:16 12/07/24 10:16 12/07/24 10:16 Point of Care Results Point of Care Results: POC- Test(urine) Negative 12/07/24 10:16 Lab Results Blood Type / Crossmatch: No Data to Display Complete Blood Count: No Data to Display Complete Metabolic Panel: No Data to Display Liver Function Panel: No Data to Display Coagulation Panel: No Data to Display Cardiac Panel: No Data to Display Arterial Blood Gas: No Data to Display Venous Blood Gas: No Data to Display Pancreas Panel: No Data to Display Thyroid Panel: No Data to Display Infectious Disease: No Data to Display Blood Cultures: No Data to Display Toxicology Panel: No Data to Display Panel: No Data to Display Anesthesia Assessment and Plan Anesthesia History Personal History: No History of Anesthesia Complications Family History: No Family History of Anesthesia Complications Exercise Tolerance Exercise Tolerance: Metabolic Equivalents>4 Pertinent Negatives Pertinent Negatives: No Symptoms of GERD Cardiac & Pulmonary Exam Cardiac Exam: Normal S1/S2 Heart Sounds Pulmonary Exam: Clear Bilateral Breath Sounds Implantable Cardiac Device Does patient have a Pacemaker or an ICD?: No Airway Exam Known Difficult Airway: No Mallampati Class: 2 Mouth Opening: Normal (> 3cm) Thyromental Distance: Greater than 3 cm Neck Range of Motion: Full ROM Neck Circumference: Normal Teeth Condition: Normal Dentition ASA Classification ASA Score: ASA 2 Emergency Case?: No NPO Status NPO Status: NPO Clears >2 hours, Solids >8 hours Status Status: Negative HCG (urine POC) Anesthesia Plan Resuscitation Status: Full Code Anesthesia Technique: General Anesthesia Airway Planned: Natural Airway Monitors Used: Standard Monitors
[2024-12-07 10:35] VITALS: BMI 32.8
--- NOTE | 2024-12-07 11:04 | W.PM.HP.N ---
Date of service: 12/07/24 Time of Service: 11:04 Assessment and Plan Assessment and plan (1) Colon cancer screening: Status: Acute Assessment and plan: Plan: Colonoscopy w/ general & natural airway. Patient complains of pain and burning with defecation. Possible internal hemorrhoids. We also discussed doing a internal hemorrhoid banding if that hemorrhoids are amendable to this. We discussed what she could expect during the procedure, recovery time and risks including but not limited to: Bleeding, infection, recurrence, fistulas, abscesses, and other on for told complications. Patient would like to have a banding done of her hemorrhoids are amendable to this. Informed consent is obtained for the procedural (explained in simple layman's terms that?the pt and/or family could understand) explaining risks vs benefits and alternatives to the procedure and consequences if we do not do the procedure and need/rational for the procedure. Risks include but are not limited to: bleeding, infection, perforation of colon.? This would necessitate emergency surgery to repair the damage w/ possible ostomy; and other associated complications w/ the required surgery. ? Also complications of anesthesia including aspiration, AL/CVA/, inability to complete the procedure. I discussed with the?patient would they could expect during the procedure, post procedure and recovery time and risks.? The patient understands that they need to have a ride home after the procedure.? This document was created with voice activated software and may contain errors. 20 mins spent in direct pt care and 15 in non face to face time (2) BMI 32.0-32.9,adult: Status: Acute History of Present Illness Narrative: Pt seen at the request of PCP regarding colon cancer screening. Pt has never had a colon cancer screening before.? They denies problems with constipation, diarrhea.? They deny any pain or difficulty with bowel movements, or rectal bleeding.? There is no family history of any colon cancer.? Pt has not had any weight loss.? Their appetite is good.? ?They deny heart, lung, or kidney problems. They are not having heartburn or indigestion. They have not had any prior colo-rectal surgery.? She has not had a prior MADIE.? They deny any problems with anesthesia in the past. previous C sections. spinal's made her nausea. Pt has pain/burning/ bleeding from hemorrhoids. Occ constipation/straining w/ BM. P also notes internal hemorrhoids Anesthesia: general (without airway) Previous surgical intolerances: No Previous surgical complications: No Pulmonary risk factors: former smoker. lanned procedure: Yes Sleep apnea risks: No COPD/Asthma/Smoker: former smoker. no asthma Can climb one flight of stairs (12-13 steps) in less than 30 seconds without stopping and without symptoms: Yes The surgery proposed for this patient is: low risk Active cardiac conditions: none Active risk factors: none ASA (acetylsalicylic acid): not used Beta blockers: not used Kidneys: no concerns DM:no ?Patient needs to be Natural airway general because of:? Medical conditions/airway control/ ?Pain control? Meds/NKDA/PMHx/PSHx: see [employer] ?ROS: 4 point ROS neg other than the symptoms noted above in the HPI. Review of Systems All systems reviewed & are unremarkable except as noted in HPI and below PFSH All Active Problems (Updated 12/07/24 @ 11:08 by Myra Roman DO) Colon cancer screening (Acute) Housing or economic circumstances (Acute) IUD surveillance (Acute) Major depressive disorder, recurrent episode (Acute) 09/12/20 Rx for Sertraline 25mg initiated. Not well tolerated by pt. Fluoxetine better misty by pt. Need for financial support (Acute) Yeast dermatitis (Acute) Contraception (Acute) 10/30/21.Pt has decided against permanent sterilization. Is plans Mirena IUD. Postoperative pain (Acute) Status post repeat low transverse section (Acute) Breech presentation (Acute) Epigastric pain (Acute) Insomnia (Acute) Elevated glucose tolerance test (Acute) First trimester (Acute) Anxiety (Chronic) BMI 32.0-32.9,adult (Acute) History of gestational hypertension (Acute) (Acute) Medical History Carpal tunnel syndrome Candidiasis of skin Mixed anxiety and depressive disorder Obesity Hemorrhoids Snoring History of tobacco abuse Deliberate self-cutting as a teen Family History Father Hypertension Heart disease AL age 51 Seizure disorder Diabetes Cancer melanoma Mother Depression Bipolar affective disorder DUB (dysfunctional uterine bleeding) Thyroid disease Sister Seizure disorder Ulcerative (chronic) enterocolitis Acid reflux Anxiety Paternal Grandfather Acid reflux Melanoma Paternal Grandmother Multiple sclerosis Social History Smoking/Tobacco Use Status: Former Tobacco Use Quit Date: 12/25/15 Second Hand Exposure: No Smoking risk assessment performed?: Yes Alcohol Intake: current Alcohol Intake frequency: holidays/special occasions only Drug use: Never Substance use type: does not use Household members: children Housing: house Sexually active: No ( from ) Do you feel safe at home: Yes Do you feel safe in your relationship?: Yes History History 6 Para 3 Hx # Term Pregnancies 2 Multiple births Hx # Pregnancies 1 Ectopic pregnancies AB induced 2 Hx Number of Living Children 3 AB spontaneous 1 Past Pregnancies Del. Date GA/Weeks # Preg Succ Route Wgt Sex Labor Lgth Anesthesia Location [facility] 01/22/10 09/24/10 07/25/16 06/19/18 39 No 3231.846 g Female [facility] 09/18/19 36 No Male [facility] 12/28/20 39 No 3231.846 g Female Delivery Date: 01/22/10 Last Updated by: María Sepulveda CNM TAB no complications Delivery Date: 09/24/10 Last Updated by: María Sepulveda CNM TAB 16 weeks no complications Delivery Date: 07/25/16 Last Updated by: María Sepulveda CNM SAB, d and C, 8 weeks 5 days Delivery Date: 06/19/18 Last Updated by: María Sepulveda CNM Unsuccessful version. for breech, gestational hypertension. No proteinuria. Delivery Date: 09/18/19 Last Updated by: María Sepulveda CNM placental abruption, vanishing twin Meds Allergies and Home Medications Allergies Allergy/AdvReac Type Severity Reaction Status Date / Time No Known Allergies Allergy Verified 12/07/24 10:09 Home Medications ?Medication ?Instructions ?Recorded ?Confirmed ?Type breast pump #1 ea 12/31/20 01/23/21 Rx ibuprofen 600 mg tablet 600 mg PO Q6H PRN pain #30 tabs 12/31/20 12/03/24 Rx levonorgestrel 21 mcg/24 hr (up to 1 device intrauterine ONCE 02/08/21 12/03/24 History 8 years) 52 mg intrauterine device (Mirena) acetylcysteine 600 mg capsule (NAC) 1,200 mg PO BID 10/27/24 12/07/24 History bisacodyl 5 mg tablet,delayed 5 mg PO ONCE Colonoscopy Bowel 10/27/24 12/03/24 Rx release Prep #4 tabs clonidine HCl 0.1 mg tablet 0.1 mg PO QHS 10/27/24 12/03/24 History folic acid 1 mg tablet 1 mg PO DAILY 10/27/24 12/03/24 History lisdexamfetamine 20 mg capsule 20 mg PO DAILY 10/27/24 12/07/24 History (Vyvanse) magnesium oxide 400 mg PO DAILY 10/27/24 12/07/24 History polyethylene glycol 3350 17 238 g PO ONCE #238 grams 10/27/24 12/03/24 Rx gram/dose oral powder levomefolate calcium 15 mg tablet 15 mg PO DAILY 10/29/24 12/03/24 History aripiprazole 2 mg tablet (Abilify) 2 mg PO HS 12/03/24 12/07/24 History Exam Narrative Exam Narrative: PHYSICAL EXAM GENERAL APPEARANCE: Alert, healthy appearance, oriented, x 3,? in no acute distress HYDRATION: Well hydrated HEAD, EYES, EARS, NECK, THROAT: Head is normocephalic, pupils equal, round, reactive to light and accommodation, ocular movement intact, sclera clear and no jaundice. ?Dentition intact. LUNGS: normal respiration/normal chest excursion. ?Clear to auscultation bilaterally. ?No wheeze. ?HEART: Regular rate and rhythm. no murmurs ABDOMEN: soft and non-tender to palpation.? Normal bowel sounds.? Results Last Vital Signs Temp 36.5 C 12/07/24 10:16 Pulse 93 H 12/07/24 10:16 Resp 18 12/07/24 10:16 BP 134/85 12/07/24 10:16 Pulse Ox 98 12/07/24 10:16 Time Spent Time spent with Patient: <40 minutes Time was spent: preparing to see the patient(eg.review tests), obtaining and/or reviewing separately otained hiistory, ordering medications,tests, procedures, referring, communicating with other health healthcare market consultant, indepentently interpreting results, counseling the patient, care coordination and other
--- NOTE | 2024-12-07 11:31 | BOWEL_PTH ---
PATIENT: Blanca Menendez LOC: [facility] U#:[id number] AGE/SX: 34/F ROOM: RE12/07/[address]: Usman Keen : 1990 BED: DIS: 12/07/2024 SPEC #: [id number] RECD: 12/07/24 12:44 STATUS: TEVIN RE #: [id number] HEATH: 12/07/24 11:[address]: Myra Roman DEPT: Surgical Specimen RECD BY: Judy Justice ENTERED: 12/07/24 12:46 SP TYPE: Bowel OTHR DR: Blanca Damico Peter Tissues: 1 - BIOPSY BOWEL 2 - BIOPSY BOWEL 3 - BIOPSY BOWEL 4 - BIOPSY BOWEL Procedures: GROSS AND MICRO LEVEL 4 Comments: [id number]
[2024-12-07 12:05] VITALS: BP 114/69; PULSE 84; RESP 16; TEMP 36.5; O2SAT 97
--- NOTE | 2024-12-07 12:07 | W.ANESPOSTOP ---
Postoperative Evaluation Date, Time and Location Date Performed: 12/07/24 Time Performed: 12:08 Patient Location: Day Surgery Unit Vital Signs Most Recent Imported Vital Signs: Most Recent Vital Signs Temp Pulse Resp BP Pulse Ox 36.5 C 84 16 114/69 97 12/07/24 12:05 12/07/24 12:05 12/07/24 12:05 12/07/24 12:05 12/07/24 12:05 Pain Score Most Recent Pain Score: Most Recent Pain Score Pain Level 0 12/07/24 12:05 Assessment Mental Status: Awake (Alert & Oriented to Patient Baseline) Airway and Respiratory Function: Patent airway with normal (patient baseline) respiratory exam Cardiovascular Function: Hemodynamically Stable Hydration Status: Adequately Hydrated Nausea & Vomiting: No Nausea or Vomiting Pain: Pt. Denies Any Pain Peripheral Nerve Block: Patient did not receive a nerve block
--- NOTE | 2024-12-07 12:08 | W.COLOREPORT ---
Date of service: 12/07/24 Time of Service: 12:08 Colonoscopy Report Date of procedure: 12/07/24 Pre-op diagnosis general: Rectal bleeding Post-op diagnosis procedure note: other (External hemorrhoid x 1 and multiple polyps) Surgeon: Myra Roman Anesthesia Type: General LMA/ETT Estimated blood loss (mL): 5 Pathology: other Complications: None Disposition: same day Prep: Miralax/Dulcolax Retraction Time: 27 Procedure Description: After informed consent was obtained, explaining risks of the procedure, including but not limits to: bleeding, infections, complications of anesthesia, perforations (which may require antibiotics and /or surgery and stay in the hospital), and abdominal pain/cramping. The patient was taken to the procedure room and placed in a left decubitous position. Monitors were applied and a time out was done. The patients name, date of , procedure, allergies to medications and metal in their body was reviewed. The patient was then sedated. Once sedated and comfortable a rectal exam was done. External exam shows x 1 internal hemorrhoid in the left lateral position internal exam revealed a normal sphincter tone and no palpable masses. The previously lubricated Olympus scope was then introduced (see RN notes for scope number) and retrofelexed. No internal hemorrhoids were identified. The scope was then advanced to the cecum without difficulty. The TI and appendiceal orifice were identified. The scope was then slowly retracted over 27 minutes back into the rectum. Polyps: She has a large 2 cm flat polyp in the cecum. This is elevated with everlift. This is removed with a hot snare. 2 endoclips were placed across the defect. A flat, .5cm polyp was found at 80cm. This was removed with a cold biting forceps. A Pedunculated .75cm polyp was found at 90cm. This is removed with a cold snare. .5cm polyp was found at 60cm. All of the specimen was retrieved. This will be sent to pathology. There is no bleeding noted from the polypectomy site. Diverticula: no. The mucosa is pink and healthy w/ a normal vascular pattern. The scope was removed, and the patient was woken up and taken back to Same day surgery in stable condition. The patient tolerated the procedure well and there were no immediate complications. Follow up: The patient should follow up in 3 years, unless they develop changes in bowel habits or other new gastrointestinal complaints. Cunningham Bowel Prep Cunningham Bowel Prep Right Colon: 3 Left Colon: 3 Transverse Colon: 3 Total Score: 9
--- NOTE | 2024-12-07 12:16 | PDOC.DSDIS_ITS ---
Date of service: 12/07/24 Discharge Plan Disposition Patient Disposition: Home Discharge Details Reason For Visit: colon scope Attending Provider: Usman Keen Primary Care Provider: Blanca Damico Home Meds and New Rx's Prescriptions: Continued lisdexamfetamine [Vyvanse] 20 mg capsule 20 mg PO DAILY folic acid 1 mg tablet 1 mg PO DAILY magnesium oxide 400 mg magnesium capsule 400 mg PO DAILY acetylcysteine [NAC] 600 mg capsule 1,200 mg PO BID clonidine HCl 0.1 mg tablet 0.1 mg PO QHS (DME) breast pump Device See Rx Instructions .ROUTE .MEDSUPPLY Qty: 1 0RF Rx Instructions: As directed Mirena 20 mcg/24 hours (6 yrs) 52 mg intrauterine device 1 device intrauterine ONCE Rx Instructions: as a single dose levomefolate calcium 15 mg tablet 15 mg PO DAILY aripiprazole [Abilify] 2 mg tablet 2 mg PO HS Held ibuprofen 600 mg tablet 600 mg PO Q6H PRN (Reason: pain) Qty: 30 0RF Hold Instructions: Resume on 12/12/24. Discontinued bisacodyl 5 mg tablet,delayed release (DR/EC) 5 mg PO ONCE Qty: 4 0RF Rx Instructions: Per Colonoscopy bowel prep instructions polyethylene glycol 3350 17 gram/dose powder 238 g PO ONCE Qty: 238 0RF Rx Instructions: For Colonoscopy bowel prep, as directed by office Discharge Instructions Additional Instructions: DSU Colonoscopy Post- Op Instructions Instructions for Everyone who is given Anesthesia: For your safety, please do the following for the next twenty-four (24) hours: *Do Not operate a motor vehicle (car, truck, motorcycle, etc.) *Do Not drink alcoholic beverages or use any recreational drugs for the first 24 hours or while taking pain medications. The medications in your body may have a reaction that can be dangerous. *Do Not make any important decisions or sign any important papers. Findings: Multiple large polyps Office will send you a letter in 3 to 4 weeks time with the results of the polyp pathology. Follow up: Repeat colonoscopy in 3 years time 1. No lifting over 20 pounds or strenuous activity for the first 72 hours after your procedure. After 72 hours there are no restrictions on your activity but you may feel fatigued for a few days. 2. After you arrive home you may have a light meal and return to your normal diet as you can tolerate it without feeling sick to your stomach. 3. You may have a bloated, gaseous feeling in your belly (abdomen) after a colonoscopy. Passing gas and belching will help. Walking or lying down on your left side with your knees flexed may relieve the discomfort. -No aspirin/NSAIDs for 5 days Call the office at [phone] (Office) or [phone] (Hospital) right away if you notice any of the following: a.Vomiting of blood or ?coffee ground stools?. b.Rectal bleeding 1Tbsp, blood clots or continuous bleeding. c.Severe belly (abdominal) pain. d.A hard distended belly (abdomen) and an inability to pass gas. 4. Please don?t expect to have a normal BM (bowel movement) for 2-3 days after your procedure. 5. If there are questions regarding the findings of your procedure, please contact your doctor 6. If you are unable to contact your doctor with a problem, contact the hospital at [phone]. 7. Continue all your regular medications unless directed otherwise. I understand the above instructions and have no questions. Signature of Patient or Adult Escort Name of Responsible Adult Escort Signature of Nurse Date/Time Stand Alone Forms: Anesthesia Discharge Sam Douglasnicole (DSU) Activity:: See above Diet:: See above DS: Diagnosis Discharge Diagnosis (1) Colon cancer screening: Status: Resolved (2) BMI 32.0-32.9,adult: Status: Acute (3) Adenomatous polyps: Status: Acute Asessment and Plan: The patient is seen and examined after their colonoscopy.? The patient has been able to pass gas.? They are not having abdominal pain.? They have been able to tolerate liquids and a snack.? They do not have any nausea or vomiting.? They are not having any chest pain or shortness of breath.??? They are not having any rectal bleeding. Their vital signs have been stable-see nursing notes. We discussed findings during their colonoscopy, and any biopsies that were done/polyps that were removed. The patient will be sent a letter with any biopsy results, and when to repeat the colonoscopy.-see discharge instructions. Patient was given explicit instructions to follow-up regarding colonoscopy-refer to discharge instructions.? We reviewed resumption of medications. Patient verbalized understanding and discharged in stable and satisfactory condition- See nursing notes. (4) Bleeding external hemorrhoids: Status: Acute (5) History of tobacco abuse:
[2024-12-07 12:35] VITALS: BP 114/66; PULSE 75; RESP 16; TEMP 36.3; O2SAT 99
== END 2024-12-07 13:21 | disposition home or self-care (01) ==
PROVIDERS: Surgery; PCP Nurse Practitioner Family; Visit Provider Student in an Organized Health Care Education/Training Program
PROC: 0DJD8ZZ Inspection of Lower Intestinal Tract, Via Natural or Artificial Opening Endoscopic (ICD-10-PCS; CPT 45378; principal; 2024-12-07 11:15)
DX: Z12.11 Encounter for screening for malignant neoplasm of colon (principal); K64.4 Residual hemorrhoidal skin tags; D12.0 Benign neoplasm of cecum; D12.4 Benign neoplasm of descending colon; D12.3 Benign neoplasm of transverse colon
CPT/HCPCS: 45385; 45380; 45381; 88305; J2704

== ENCOUNTER 2025-07-18 16:11 | Outpatient (REF) | payer MEDICAID, SELFPAY ==
[2025-07-18 16:21] LABS: Hemoglobin A1C 5.3 % (<5.7)
[2025-07-18 16:27] LABS: Calculated LDL 199 mg/dL (<100); Cholesterol 251 mg/dL (<200); HDL Cholesterol 36 mg/dL (>or=50); Triglyceride 84 mg/dL (<150)
== END 2025-07-18 16:12 | disposition home or self-care (01) ==
LOC: NCHCN 16:11
PROVIDERS: PCP Nurse Practitioner Family; Visit Provider Nurse Practitioner Family
DX: E66.9 Obesity, unspecified (principal)
CPT/HCPCS: 80061; 83036

== ENCOUNTER 2025-08-16 08:53 | Day surgery (SDC) | payer MEDICAID, SELFPAY ==
--- NOTE | 2025-08-15 13:57 | W.PM.DSUDISC ---
Date of service: 08/16/25 Discharge Plan Disposition Patient Disposition: Home Condition: Good Discharge Details Reason For Visit: Hemorrhoidectomy Attending Provider: Emigdio Aranda Primary Care Provider: Blanca Damico Home Meds and New Rx's Prescriptions: New tramadol 50 mg tablet 50 mg PO Q8H PRNQty: 15 0RF Rx Instructions: Take 1 tablet by mouth up to every 8 hours if needed for severe pain. Continued lisdexamfetamine [Vyvanse] 20 mg capsule 40 mg PO DAILY clonidine HCl 0.1 mg tablet 0.1 mg PO QHS PRN Mirena 20 mcg/24 hours (6 yrs) 52 mg intrauterine device 1 device intrauterine ONCE Rx Instructions: as a single dose multivitamin Tablet 1 tab PO DAILY docusate sodium [Colace] 100 mg capsule 200 mg PO DAILY PRN Discharge Instructions Instructions: Hemorrhoidectomy (DC), How to Do a Sitz Bath Additional Instructions: Blanca, it was good to see you today, and I hope you have a quick and uneventful recovery from the procedure. Things went very smoothly. I did completely excise the hemorrhoid along the right posterior column of your anus. Hopefully this will provide relief of your symptoms. Used a fair amount of local long-acting anesthetic that hopefully will provide some relief in addition to the medications that you got before surgery. I will put in a prescription for a stronger medication if Tylenol and ibuprofen are not sufficient for your pain afterwards. I also recommend using sitz bath's over the next few days to help with postoperative swelling and pain. I suggest 1 tablespoon of Epsom salts or baking soda per 1 gallon of warm water. Soak for about 15 minutes once in the morning and once in the evening. You can repeated as many times throughout the course of the day (especially after bowel movements) if you find it comfortable. It is also worth taking a little bit of MiraLAX over the next few days. Mix 1 capful with about 8 ounces of water or other drink once in the morning and once in the evening. You might also experience some bleeding from the incision site over the next few days, so using a menstrual pad or similar product is probably a good idea. If you need anything or have any questions at all, please do not hesitate to call or ask at any point, otherwise we look forward to seeing you in the office for a follow-up visit. Stand Alone Forms: Anesthesia Discharge Inst., Sam Aguila (DSU) Referrals: Emigdio Aranda MD [ [facility] STAFF PHYSICIAN, Surgery] - 08/29/25 9:30 am Activity:: Activity as Tolerated Diet:: As Tolerated Discharge Orders Discharge Orders: Discharge Order (Routine); Ordered 08/15/25 Ordered By: Emigdio Aranda DS: Diagnosis Discharge Diagnosis (1) Bleeding external hemorrhoids: Status: Acute Asessment and Plan: Outpatient postoperative follow-up
--- NOTE | 2025-08-15 13:58 | ROE_ITS ---
Operative Note Operative Note PRE-OP DIAGNOSIS: Hemorrhoids POST-OP DIAGNOSIS: same PROCEDURE: Hemorrhoidectomy SURGEON: Emigdio Aranda CREDIT ADMINISTRATION MANAGER: Opal Terrell ANESTHESIA TYPE: General LMA/ETT Refer to Anesthesia Record ESTIMATED BLOOD LOSS: 10 PATHOLOGY: none sent COMPLICATIONS: None Patient was transported to: PACU Patient's condition: stable Indications: Jessica is a 35-year-old woman with symptomatic hemorrhoids refractory to medical management Findings: Right posterior column hemorrhoid Procedure Description: I met with Blanca in the preoperative area, we reviewed the plan for surgery. She the opportunity to ask any other questions. Next, we moved back to the OR. She was intubated on the stretcher, then rolled to the prone position. Great care was taken to ensure that she was padded and supported appropriately. The buttocks, anus, and perineum were then prepped and draped. There is a small right posterior external hemorrhoid that extends up into the internal column. Digital rectal exam was otherwise normal. There is no evidence of any fissures or any other anal pathology. Next, I established a generous field block using local anesthetic mixed with Exparel. The external hemorrhoid was grasped with an Allis clamp, and elevated off the surrounding endoderm. The skin was incised with a scalpel, and the hand-held LigaSure was then carefully used to dissect the underlying soft tissue. Great care was taken to spare the muscular complex. External component of the hemorrhoid was controlled with the LigaSure, then carefully dissected up along the internal column. Once the hemorrhoid was completely excised. The area was carefully examined. I did not appreciate any other pathology. It was hemostatic. Mucosa and skin was then reapproximated with interrupted 3-0 Vicryl stitches. Catheter was then rolled back into the supine position, and extubated prior to transfer to the recovery room. Date of Procedure: 08/16/25
[2025-08-16] VITALS (17 sets, daily range): BP systolic 103–129; BP diastolic 55–75; PULSE 64–85; RESP 9–14; TEMP 36.3–38.6; O2SAT 99–100; BMI 28.8
--- NOTE | 2025-08-16 06:21 | W.ANESPRE ---
General Info Date of Service Date Performed: 08/16/25 Height: 5 ft 9 in Weight: 88.451 kg Body Mass Index (BMI): 28.8 Surgical Procedure: Operation Date: 08/16/25 09:55 Proposed Procedure Side Surgeon p Hemorrhoidectomy Emigdio Aranda MD Meds Allergies and Home Medications Allergies Allergy/AdvReac Type Severity Reaction Status Date / Time lamotrigine Allergy Mild rash Verified 08/16/25 09:02 Home Medication ?Medication ?Instructions ?Recorded levonorgestrel (Mirena) 1 device intrauterine ONCE 02/08/21 multivitamin 1 tab PO DAILY 07/19/25 clonidine HCl 0.1 mg tablet 0.1 mg PO QHS PRN 08/01/25 docusate sodium 100 mg capsule 200 mg PO DAILY PRN 08/01/25 (Colace) lisdexamfetamine 20 mg capsule 40 mg PO DAILY 08/01/25 (Vyvanse) Current Visit Medications: Current Medications Generic Name Dose Route Start Last Admin Trade Name Freq PRN Reason Stop Dose Admin Acetaminophen 1,000 mg 08/16/25 06:00 Acetaminophen 500 Mg Tab PO 08/16/25 23:59 PREOP CALIXTO Celecoxib 200 mg 08/16/25 06:00 Celecoxib 200 Mg Cap PO 08/16/25 23:59 PREOP CALIXTO Gabapentin 600 mg 08/16/25 06:00 Gabapentin 300 Mg Cap PO 08/16/25 23:59 PREOP CALIXTO Hydromorphone HCl 0.2 mg 08/15/25 14:06 Hydromorphone 2 Mg/Ml Syr IVP 09/14/25 14:05 Q1H PRN PRN Ringer's Solution 1,000 mls @ 80 mls/hr 08/16/25 06:00 IV 08/16/25 23:59 INFUSION CALIXTO IV Miscellaneous Supplies 1 each 08/16/25 06:00 Iv Access IV 08/16/25 23:59 DIRECTED CALIXTO Sodium Biphosphate/Sodium Phosphate 133 ml 08/16/25 06:00 Na Phosphate Enema-Adult 133 Ml Btl ME 08/16/25 23:59 DIRECTED PRN Sodium Chloride 0 ml 08/16/25 06:00 Normal Saline Flush 10 Ml Syr IV 08/16/25 23:59 PRN PRN Sodium Chloride 0 ml 08/16/25 06:00 Normal Saline 10 Ml Vial IJ 08/16/25 23:59 DIRECTED PRN Sterile Water 0 ml 08/16/25 06:00 Water,Injection,Sterile 10 Ml Vial IJ 08/16/25 23:59 DIRECTED PRN Tramadol HCl 50 mg 08/15/25 14:06 Tramadol 50 Mg Tab PO 09/14/25 14:05 Q6H PRN PRN Pain PFSH Active Problems Active Problems: Problem Status Onset Code Bleeding external hemorrhoids Acute K64.4 Adenomatous polyps Acute D36.9 Housing or economic circumstances Acute Z59.9 IUD surveillance Acute Z30.431 Major depressive disorder, recurrent episode Acute F33.9 Need for financial support Acute Z59.9 Yeast dermatitis Acute B37.2 Contraception Acute Z30.9 Epigastric pain Acute R10.13 Insomnia Acute G47.00 Elevated glucose tolerance test Acute R73.09 Suicidal ideation Resolved R45.851 BMI 32.0-32.9,adult Acute Z68.32 History of gestational hypertension Acute Z87.59 Anxiety Chronic F41.9 Medical History Medical History Postoperative pain Breech presentation Carpal tunnel syndrome Candidiasis of skin Mixed anxiety and depressive disorder Obesity Hemorrhoids Snoring History of tobacco abuse Deliberate self-cutting as a teen Surgical History Surgical History H/O dilation and curettage [place] teeth extracted H/O section 2017, 2018, 2020 History of colonoscopy (~11/2024) Status post repeat low transverse section Tobacco Smoking/Tobacco Use Status: Former Tobacco Use Second hand exposure: No Alcohol Alcohol Intake: current Alcohol intake frequency: holidays/special occasions only Substance Use Substance use: Never Substance use type: does not use Prental History History 6 Para 3 Hx # Term Pregnancies 2 Multiple births Hx # Pregnancies 1 Ectopic pregnancies AB induced 2 Hx Number of Living Children 3 AB spontaneous 1 Past Pregnancies Del. Date GA/Weeks # Preg Succ Route Wgt Sex Labor Lgth Anesthesia Location [facility] 01/22/10 09/24/10 07/25/16 06/19/18 39 No 3231.846 g Female [facility] 09/18/19 36 No Male [facility] 02/04/21 39 No 3231.846 g Female [facility] Delivery Date: 01/22/10 Last Updated by: María Sepulveda CNM TAB no complications Delivery Date: 09/24/10 Last Updated by: María Sepulveda CNM TAB 16 weeks no complications Delivery Date: 07/25/16 Last Updated by: María Sepulveda CNM SAB, d and C, 8 weeks 5 days Delivery Date: 06/19/18 Last Updated by: María Sepulveda CNM Unsuccessful version. for breech, gestational hypertension. No proteinuria. Delivery Date: 09/18/19 Last Updated by: María Sepulveda CNM placental abruption, vanishing twin Vital Signs and Lab Results Vital Signs Most Recent Vital Signs in EMR: Temp Pulse Resp BP Pulse Ox 36.6 C 85 14 129/75 100 08/16/25 09:04 08/16/25 09:04 08/16/25 09:04 08/16/25 09:04 08/16/25 09:04 Lab Results Complete Metabolic Panel: Hemoglobin A1c, (<5.7) 5.3 % 07/18/25, 11:10 Anesthesia Assessment and Plan Anesthesia History Personal History: PONV Family History: No Family History of Anesthesia Complications Exercise Tolerance Exercise Tolerance: Metabolic Equivalents>4 Cardiac & Pulmonary Exam Cardiac Exam: Normal S1/S2 Heart Sounds Pulmonary Exam: Clear Bilateral Breath Sounds Implantable Cardiac Device Does patient have a Pacemaker or an ICD?: No Airway Exam Known Difficult Airway: No Mallampati Class: 3 Mouth Opening: Normal (> 3cm) Thyromental Distance: Greater than 3 cm Neck Range of Motion: Full ROM Neck Circumference: Normal Teeth Condition: Normal Dentition Airway Comments: prominent front teeth. ASA Classification ASA Score: ASA 2 Emergency Case?: No NPO Status NPO Status: NPO Clears >2 hours, Solids >8 hours Status Status: Negative HCG Anesthesia Plan Resuscitation Status: Full Code Anesthesia Technique: General Anesthesia Airway Planned: Endotracheal Tube Monitors Used: Standard Monitors Preoperative Comments:: 35 yo for hemorrhoidectomy Sig PMHx: depression/anxiety. Former smoker Occ EtOH. Previous Anes: - colo, prop, natural airway, no issues. - section, spinal, PONV (? r/t morphone)
[2025-08-16] MEDS: Gabapentin 300 MG CAP 600 MG PO (09:41)
[2025-08-16] MEDS: Acetaminophen 500 MG TAB 1000 MG PO (09:41)
[2025-08-16] MEDS: Celecoxib 200 MG CAP PO (09:41)
[2025-08-16] MEDS: Lactated Ringers 1,000 ML 80 ML IV (09:56)
[2025-08-16] MEDS: Bupivacaine LIPOSOME/PF 133 MG/10 ML VIAL IJ (10:31)
[2025-08-16] MEDS: Bupivacaine 0.5% Pres-Free 30 ML VIAL (10:31)
--- NOTE | 2025-08-16 11:08 | W.ANESPOSTOP ---
Postoperative Evaluation Date, Time and Location Date Performed: 08/16/25 Time Performed: 11:08 Patient Location: PACU Vital Signs Most Recent Imported Vital Signs: Most Recent Vital Signs Temp Pulse Resp BP Pulse Ox 36.9 C 77 13 103/55 L 100 08/16/25 11:04 08/16/25 11:01 08/16/25 11:01 08/16/25 11:01 08/16/25 11:01 Assessment Mental Status: Awake (Alert & Oriented to Patient Baseline) Airway and Respiratory Function: Patent airway with normal (patient baseline) respiratory exam Cardiovascular Function: Hemodynamically Stable Hydration Status: Adequately Hydrated Nausea & Vomiting: No Nausea or Vomiting Pain: Pt. Denies Any Pain Peripheral Nerve Block: Patient did not receive a nerve block
[2025-08-16] MEDS: traMADol 50 MG TAB PO (11:40)
== END 2025-08-16 13:13 | disposition home or self-care (01) ==
PROVIDERS: PCP Nurse Practitioner Family; Visit Provider Surgery
PROC: (CPT 46255; principal; 2025-08-16 09:45)
DX: K64.4 Residual hemorrhoidal skin tags (principal)
CPT/HCPCS: 46255; 81025; J0665; J0666; J1100; J2405; J2704; J3475